=== PATIENT | female | born 1990 | race Caucasian/White ===

== ENCOUNTER 2018-07-13 11:29 | Emergency (ER) | payer SELFPAY ==
--- OUTSIDE RECORDS SUMMARY | 2018-07-13 11:31 | XMS REPORT | Summary of Care ---
:1990 Author Organization [facility] Address [id number] [place] [phone]- Encounter HQ Arleen_blanca(FIN) [id number] Date(s): 05/10/16 - 05/10/16 [facility] [id number] [place] [address] [phone] Discharge Diagnosis: Abdominal pain Discharge Disposition: Home or Self Care Attending Physician: Ayah Shepard DO Vital Signs Most recent to oldest [Reference Range]: 1 2 Height 162.56 cm (05/10/16 11:26 AM) Temperature Oral [96.4-99.1 DegF] 98 DegF 98.3 DegF (05/10/16 2:22 PM) (05/10/16 11:26 AM) Blood Pressure [90-140/60-90 mmHg] 125/62 mmHg 139/78 mmHg (05/10/16 2:22 PM) (05/10/16 11:26 AM) Respiratory Rate [14-20 BRMIN] 18 BRMIN 18 BRMIN (05/10/16 2:22 PM) (05/10/16 11:26 AM) Peripheral Pulse Rate [60-100 bpm] 76 bpm 88 bpm (05/10/16 2:22 PM) (05/10/16 11:26 AM) Weight 113.636 kg (05/10/16 11:26 AM) Body Mass Index 43 m2 (05/10/16 11:26 AM) Problem List Condition Effective Dates Status Health Status Informant Abdominal pain1 01/19/14 Active Acute sinusitis2, 3 01/09/11 Resolved Hip pain4 01/19/14 Active Hypothyroidism5 12/18/10 Active Influenza6, 7 10/27/07 Resolved Pharyngitis8, 9 12/15/10 Resolved 1Data migrated from [employer] on 01/28/15.2Data migrated from [employer] on 03/18/15.3Data migrated from [employer] on 03/17/15.4Data migrated from [employer] on 01/28/15.5Data migrated from [employer] on 01/28/15.6Data migrated from [employer] on 03/18/15.7Data migrated from [employer] on 03/17.8Data migrated from [employer] on 03/18/15.9Data migrated from [employer] on 03/17/15. Allergies, Adverse Reactions, Alerts Substance Reaction Severity Status NKDA1 Active 1Data migrated from [employer] on 10/24/15. Originally documented as NKA. Medications ondansetron 4 mg, 2 mL, Route: IVP, Drug form: INJ, ONCE, Dosing Weight 113.636, kg, Priority: STAT, Start date:05/10/16 12:12:00 CDT, Stop date: 05/10/16 12:12:00 CDT Notes: (Same as: Radha) MEDICATION WASTE Product Size: 4 mgProduct Wasted: ___ mg Start Date: 05/10/16 Stop Date: 05/10/16 Status: CompletedSaline Flush 0.9% 10 mL, Route: IVP, Drug Form: INJ, Dosing Weight 113.636, kg, PRN, PRN Line Flush, Start date: 05/10/16 12:12:00 CDT, Duration: 30 day, Stop date: 06/09/16 12:11:00 CDT Notes: (Same as: BD Posiflush) Start Date: 05/10/16 Stop Date: 05/10/16 Status: DiscontinuedSodium Chloride 0.9% (Bolus) IV 1,000 mL, 2,000 ml/hr, Infuse Over: 30 minutes, Route: IV, 1,000, Drug form: INJ , ONCE, Priority: STAT, Dosing Weight 113.636 kg, Start date: 05/10/16 12:12:00 CDT, Duration: 1 doses or times, Stop date: 05/10/16 12:12:00 CDT Start Date: 05/10/16 Stop Date: 05/10/16 Status: CompletedZofran 4 mg oral tablet 4 mg=1 tab, PO, BID, X 5 day, # 10 tab, 0 Refill(s) Start Date: 05/10/16 Stop Date: 05/15/16 Status: Ordered Results ELECTROLYTES Most recent to oldest [Reference Range]: 1 Sodium Lvl [135-145 mEq/L] 143 mEq/L (05/10/16 12:37 PM) Potassium Lvl [3.5-5.1 mEq/L] 3.9 mEq/L (05/10/16 12:37 PM) Chloride Lvl [95-109 mEq/L] 111 mEq/L *HI* (05/10/16 12:37 PM) CO2 [24-32 mEq/L] 25 mEq/L (05/10/16 12:37 PM) AGAP [10.0-20.0 mEq/L] 10.9 mEq/L (05/10/16 12:37 PM) CHEM PANEL Most recent to oldest [Reference Range]: 1 Creatinine Lvl [0.50-1.40 mg/dL] 0.72 mg/dL (05/10/16 12:37 PM) eGFR 117 mL/min/1.73m2 1 *NA* (05/10/16 12:37 PM) BUN [7-22 mg/dL] 10 mg/dL (05/10/16 12:37 PM) Glucose Lvl [70-99 mg/dL] 103 mg/dL *HI* (05/10/16 12:37 PM) Calcium Lvl [8.5-10.5 mg/dL] 8.4 mg/dL *LOW* (05/10/16 12:37 PM) 1Result Comment: The eGFR is calculated using the CKD-EPI formula. In most young , healthy individualsthe eGFR will be >90 mL/min/1.73m2. The eGFR declines with age. An eGFR of 60-89 may be normal in some populations, particularly the elderly, for whom the CKD-EPI formula has not been extensively validated. Use of the eGFR is not recommended in the following populations: Individuals with unstable creatinine concentrations, including patients and those with serious co-morbid conditions. Patients with extremes in muscle mass or diet. The data above are obtained from the National Kidney Disease Education Program ( NKDEP) which additionally recommends that when the eGFR is used in patients with extremes of body mass index for purposesof drug dosing, the eGFR should be multiplied by the estimated BMI.URINE CHEM Most recent to oldest [Reference Range]: 1 U Preg [Negative] Negative (05/10/16 11:46 AM) URINE AND STOOL Most recent to oldest [Reference Range]: 1 UA Turbidity [Clear] Slight Cloudy (05/10/16 11:46 AM) UA Color [Yellow] Yellow *NA* (05/10/16 11:46 AM) UA pH [5.0-8.0] 6.0 (05/10/16 11:46 AM) UA Spec Grav [<=1.030] 1.025 (05/10/16 11:46 AM) UA Glucose [Negative] Negative (05/10/16 11:46 AM) UA Blood [Negative] Negative (05/10/16 11:46 AM) UA Ketones [Negative] Negative *NA* (05/10/16 11:46 AM) UA Protein [Negative] Negative (05/10/16 11:46 AM) UA Urobilinogen [0.1-1.0 EU/dL] 0.2 EU/dL (05/10/16 11:46 AM) UA Bili [Negative] Negative *NA* (05/10/16 11:46 AM) UA Leuk Est [Negative] Moderate *ABN* (05/10/16 11:46 AM) UA Nitrite [Negative] Negative (05/10/16 11:46 AM) UA WBC [None Seen /HPF] 3-5 /HPF (05/10/16 11:46 AM) UA RBC [0-2 /HPF] 0-2 /HPF (05/10/16 11:46 AM) UA Bacteria [None Seen /HPF] Many /HPF (05/10/16 11:46 AM) UA Sq Epi [Few /LPF] Moderate /LPF *ABN* (05/10/16 11:46 AM) HEMATOLOGY Most recent to oldest [Reference Range]: 1 WBC [3.7-10.4 K/CMM] 8.7 K/CMM (05/10/16 12:37 PM) RBC [4.20-5.40 M/CMM] 4.64 M/CMM (05/10/16 12:37 PM) Hgb [12.0-16.0 g/dL] 13.1 g/dL (05/10/16 12:37 PM) Hct [36.0-48.0 %] 39.4 % (05/10/16 12:37 PM) MCV [80.0-98.0 fL] 84.9 fL (05/10/16 12:37 PM) MCH [27.0-31.0 pg] 28.2 pg (05/10/16 12:37 PM) MCHC [32.0-36.0 g/dL] 33.2 g/dL (05/10/16 12:37 PM) RDW [11.5-14.5 %] 14.9 % *HI* (05/10/16 12:37 PM) Platelet [133-450 K/CMM] 230 K/CMM (05/10/16 12:37 PM) MPV [7.4-10.4 fL] 8.8 fL (05/10/16 12:37 PM) Segs [45.0-75.0 %] 62.8 % (05/10/16 12:37 PM) Lymphocytes [20.0-40.0 %] 24.6 % (05/10/16 12:37 PM) Monocytes [2.0-12.0 %] 7.9 % (05/10/16 12:37 PM) Eosinophils [0.0-4.0 %] 4.4 % *HI* (05/10/16 12:37 PM) Basophils [0.0-1.0 %] 0.3 % (05/10/16 12:37 PM) Segs-Bands # [1.5-8.1 K/CMM] 5.5 K/CMM (05/10/16 12:37 PM) Lymphocytes # [1.0-5.5 K/CMM] 2.1 K/CMM (05/10/16 12:37 PM) Monocytes # [0.0-0.8 K/CMM] 0.7 K/CMM (05/10/16 12:37 PM) Eosinophils # [0.0-0.5 K/CMM] 0.4 K/CMM (05/10/16 12:37 PM) Immunizations No data available for this section Procedures No data available for this section Social History Social History Type Response Smoking Status Never smoker; Exposure to Tobacco Smoke None; Cigarette Smoking Last 365 Days No; Reg Smoking Cessation Counseling No Assessment and Plan No data available for this section
--- OUTSIDE RECORDS SUMMARY | 2018-07-13 11:31 | XMS REPORT | Continuity of Care Document ---
:1990 Author Organization Interface Problems Problem Status Onset Classification Date Comments Source Date Reported PAIN ON RT HIP Active 05/18/20 [facility] 16 Jacky Discharge 05/10/20 05/13/2016 Diagnosis: 16 [place] Abdominal pain ABDOMINAL PAIN Active 05/10/20 [place] [id number] Jacky Abdominal Active 01/20/20 Problem 05/21/2016 Data pain<sup>1</sup> 14 migrated Wesley from [employer] on 01/28/15. Hip Active 01/20/20 Problem 05/21/2016 Data pain<sup>4</sup> 14 migrated [place] from [employer] on 01/28/15. Acute Resolved 01/10/20 Problem 05/21/2016 Data sinusitis<sup>2, 11 migrated Wesley 3</sup> from [employer] on 03/17/15. Hypothyroidism<roland Active 12/19/19 Problem 05/21/2016 Data p>5</sup> 11 migrated Wesley from [employer] on 01/28/15. Pharyngitis<sup>8 Resolved 08/15/20 Problem 05/21/2016 Data , 9</sup> 10 migrated Wesley from [employer] on 03/17/15. Influenza<sup>6, Resolved 10/27/19 Problem 05/21/2016 Data 7</sup> 08 migrated Wesley from [employer] on 03/17/15. Hypothyroidism Resolved Problem 05/21/2016 [facility] Medications Medication Details Route Status Patient Ordering Order Source Instructions Provider Date Ondansetron 4 4 mg=1 tab, Active MH MG Oral Tablet PO, BID, X 5 016 Arnaldo [Radha] , # 10 tab, 0 Refill(s) Ondansetron 4 mg, 2 mL, Inactive Route: IVP, 016 Arnaldo Drug form: INJ, ONCE, Dosing Weight 113.636, kg, Priority: STAT, Start date: 05/10/16 12:12:00 CDT, Stop date: 05/10/16 12:12:00 CDTNotes: (Same as: Zofran) MEDICATION WASTE Product Size: 4 mg Product Wasted: ___ mg Saline Flush 10 mL, Route: Inactive 0.9% IVP, Drug 016 Wesley Form: INJ, Dosing Weight 113.636, kg, PRN, PRN Line Flush, Start date: 05/10/16 12:12:00 CDT, Duration: 30 day, Stop date: 06/09/16 12:11:00 CDTNotes: (Same as: BD Posiflush) Sodium 1,000 mL, Inactive Chloride 0.154 2,000 ml/hr, 016 Wesley MEQ/ML Infuse Over: Injectable 30 minutes, Solution Route: IV, 1,000, Drug form: INJ, ONCE, Priority: STAT, Dosing Weight 113.636 kg, Start date: 05/10/16 12:12:00 CDT, Duration: 1 doses or times, Stop date: 05/10/16 12:12:00 CDT Allergies, Adverse Reactions, Alerts Substance Category Reaction Severity Reaction Status Date Comments Source type Reported Immunizations Immunization Date Given Site Status Last Updated Comments Source Results Order Name Results Value Reference Date Interpretation Comments Source Range URINE AND UA RBC 3-5 /HPF 0 - 2 05/19 [place] URINE AND UA CaOx Radha Few /HPF None Seen 05/19 STOOL /HPF Wesley URINE AND UA Bacteria Moderate None Seen 05/19 STOOL /HPF /HPF /2015 [place] URINE AND UA Turbidity Slight Cloudy Clear 05/19 Wesley (05/18/16 10:39 PM) URINE AND UA Spec Grav >=1.030 <=1.030 05/19 [place] *ABN* (05/18/16 10:39 PM) URINE AND UA pH 6.0 5.0 - 8.0 05/19 [place] URINE AND UA Color Yellow Yellow 05/19 [place] *NA* (05/18/16 10:39 PM) URINE AND UA Bili Negative Negative 05/19 [place] *NA* (05/18/16 10:39 PM) URINE AND UA Blood Trace Negative 05/19 STOOL [place] *ABN* (05/18/16 10:39 PM) URINE AND UA Ketones Negative Negative 05/19 STOOL [place] *NA* (05/18/16 10:39 PM) URINE AND UA Leuk Est Negative Negative 05/19 STOOL [place] (05/18/16 10:39 PM) URINE AND UA Sq Epi Few /LPF Few /LPF 05/19 STOOL [place] URINE AND UA WBC 3-5 /HPF None Seen 05/19 STOOL /HPF /2015 [place] URINE AND UA Protein Negative Negative 05/19 STOOL Wesley (05/18/16 10:39 PM) URINE AND UA Glucose Negative Negative 05/19 STOOL [place] (05/18/16 10:39 PM) URINE AND UA Nitrite Negative Negative 05/19 STOOL [place] (05/18/16 10:39 PM) URINE AND UA 0.2 EU/dL 0.1 - 1.0 05/19 [facility] Urobilinogen Wesley URINE CHEM U Preg Negative Negative 05/19 [place] (05/18/16 10:39 PM) ELECTROLYTE AGAP 10.9 10.0 - 05/10 S meq/L 20.0 /2015 [place] ELECTROLYTE eGFR 117 05/10 Result Comment: The eGFR is calculated using the CKD-EPI formula. In most young, healthy individuals the eGFR will be > 90 mL/min/1.73m2. The eGFR declines with age. An eGFR of 60-89 may be normal in S mL/min/1. some populations, particularly the elderly, for whom the CKD-EPI formula has not been extensively validated. Use of the eGFR is not recommended in the following populations: Wesley 73m2 Individuals with unstable creatinine concentrations, including patients and those with serious co-morbid conditions. Patients with extremes in muscle mass or diet. The data above are obtained from the National Kidney Disease Education Program (NKDEP) which additionally recommends that when the eGFR is used in patients with extremes of body mass index for purposes of drug dosing, the eGFR should be multiplied by the estimated BMI. ELECTROLYTE CO2 25 meq/L 24 - 32 05/10 S /2015 [place] ELECTROLYTE Calcium Lvl 8.4 mg/dL 8.5 - 10.5 09 S [place] ELECTROLYTE BUN 10 mg/dL 7 - 22 05/10 S [place] ELECTROLYTE Creatinine 0.72 0.50 - 09 S Lvl mg/dL 1. [place] ELECTROLYTE Sodium Lvl 143 meq/L 135 - 145 05/10 [place] ELECTROLYTE Glucose Lvl 103 mg/dL 70 - 99 05/10 [place] ELECTROLYTE Chloride Lvl 111 meq/L 95 - 109 05/10 [place] ELECTROLYTE Potassium Lvl 3.9 meq/L 3.5 - 5.1 05/10 S [place] HEMATOLOGY MCH 28.2 pg 27.0 - 05/10 MH 31.0 [place] HEMATOLOGY MCV 84.9 fL 80.0 - 05/10 98.0 [place] HEMATOLOGY Hct 39.4 % 36.0 - 05/10 48.0 [place] HEMATOLOGY MCHC 33.2 g/dL 32.0 - 05/10 36.0 [place] HEMATOLOGY MPV 8.8 fL 7.4 - 10.4 05/10 [place] HEMATOLOGY Platelet 230 K/CMM 133 - 450 05/10 [place] HEMATOLOGY RDW 14.9 % 11.5 - 05/10 14. [place] HEMATOLOGY WBC X 10x3 8.7 K/CMM 3.7 - 10.4 05/10 [place] HEMATOLOGY Hgb 13.1 g/dL 12.0 - 05/10 16.0 [place] HEMATOLOGY RBC X 10x6 4.64 4.20 - 05/10 MH M/CMM 5.40 [place] HEMATOLOGY Lymphocytes # 2.1 K/CMM 1.0 - 5.5 05/10 [place] HEMATOLOGY Segs-Bands # 5.5 K/CMM 1.5 - 8.1 05/10 [place] HEMATOLOGY Monocytes # 0.7 K/CMM 0.0 - 0.8 05/10 [place] HEMATOLOGY Basophils 0.3 % 0.0 - 1.0 05/10 [place] HEMATOLOGY Eosinophils # 0.4 K/CMM 0.0 - 0.5 05/10 [place] HEMATOLOGY Eosinophils 4.4 % 0.0 - 4.0 05/10 [place] HEMATOLOGY Monocytes 7.9 % 2.0 - 12.0 05/10 [place] HEMATOLOGY Lymphocytes 24.6 % 20.0 - 05/10 MH 40.0 [place] HEMATOLOGY Segs 62.8 % 45.0 - 05/10 75.0 [place] URINE AND UA Glucose Negative Negative 05/10 [place] (05/10/16 11:46 AM) URINE AND UA Nitrite Negative Negative 05/10 [place] (05/10/16 11:46 AM) URINE AND UA Blood Negative Negative 05/10 STOOL [place] (05/10/16 11:46 AM) URINE AND UA Bili Negative Negative 05/10 [place] *NA* (05/10/16 11:46 AM) URINE AND UA Ketones Negative Negative 05/10 [place] *NA* (05/10/16 11:46 AM) URINE AND UA Protein Negative Negative 05/10 [place] (05/10/16 11:46 AM) URINE AND UA pH 6.0 5.0 - 8.0 05/10 [place] URINE AND UA 0.2 EU/dL 0.1 - 1.0 05/10 STOOL Urobilinogen /2015 [place] URINE AND UA Leuk Est Moderate Negative 05/10 [place] *ABN* (05/10/16 11:46 AM) URINE AND UA Color Yellow Yellow 05/10 [place] *NA* (05/10/16 11:46 AM) URINE AND UA Spec Grav 1.025 <=1.030 05/10 [place] URINE AND UA Turbidity Slight Cloudy Clear 05/10 STOOL [place] (05/10/16 11:46 AM) URINE AND UA Bacteria Many /HPF None Seen 05/10 STOOL /HPF Wesley URINE AND UA WBC 3-5 /HPF None Seen 05/10 STOOL /HPF [place] URINE AND UA RBC 0-2 /HPF 0 - 2 05/10 [place] URINE AND UA Sq Epi Moderate Few /LPF 05/10 STOOL /LPF /2015 [place] URINE CHEM U Preg Negative Negative 05/10 [place] (05/10/16 11:46 AM) Vital Signs Vital Sign Value Date Comments Source BMI Calculated 43 05/19/2016 [facility] Weight 113.636 05/19/2016 [facility] Height 162.56 cm 05/19/2016 [facility] Systolic (mm Hg) 133 05/19/2016 [facility] Diastolic (mm Hg) 73 05/19/2016 [facility] Heart Rate 83 05/19/2016 [facility] Respitory Rate 18 05/19/2016 [facility] Temperature Oral (F) 98.1 F 05/19/2016 [facility] Heart Rate 76 05/10/2016 [facility] Temperature Oral (F) 98 F 05/10/2016 [facility] Respitory Rate 18 05/10/2016 [facility] Systolic (mm Hg) 125 05/10/2016 [facility] Diastolic (mm Hg) 62 05/10/2016 [facility] BMI Calculated 43 05/10/2016 [facility] Weight 113.636 05/10/2016 [facility] Height 162.56 cm 05/10/2016 [facility] Systolic (mm Hg) 139 05/10/2016 [facility] Diastolic (mm Hg) 78 05/10/2016 [facility] Temperature Oral (F) 98.3 F 05/10/2016 [facility] Heart Rate 88 05/10/2016 [facility] Respitory Rate 18 05/10/2016 [facility] Encounters Location Location Encounter Encounter Reason Attending ADM DC Status Source Details Type Number For Provider Date [facility] [id number] Ayah 05/10 05/10 [facility]ip[facility] /2015 [facility] [id number] Ayah 05/19 05/19 [facility] /2015 [facility] Procedures Procedure Code Date Perfomer Comments Source section [id number] [facility]
--- OUTSIDE RECORDS SUMMARY | 2018-07-13 11:32 | XMS REPORT | Summary of Care ---
:1990 Author Organization [facility] Address [id number] [place] [id number]- Encounter HQ Lou(FIN) [id number] Date(s): 05/18/16 - 05/18/16 [facility] [address] [place] [phone] Discharge Disposition: Home or Self Care Attending Physician: Ayah Shepard DO Vital Signs Most recent to oldest [Reference Range]: 1 Height 162.56 cm (05/18/16 9:49 PM) Temperature Oral [96.4-99.1 DegF] 98.1 DegF (05/18/16 9:49 PM) Blood Pressure [90-140/60-90 mmHg] 133/73 mmHg (05/18/16 9:49 PM) Respiratory Rate [14-20 BRMIN] 18 BRMIN (05/18/16 9:49 PM) Peripheral Pulse Rate [60-100 bpm] 83 bpm (05/18/16 9:49 PM) Weight 113.636 kg (05/18/16 9:49 PM) Body Mass Index 43 m2 (05/18/16 9:49 PM) Problem List Condition Effective Dates Status Health Status Informant Abdominal pain1 01/19/14 Active Acute sinusitis2, 3 01/09/11 Resolved Hip pain4 01/19/14 Active Hypothyroidism5 12/18/10 Active Hypothyroidism(Confirmed) Resolved Influenza6, 7 10/27/07 Resolved Pharyngitis8, 9 08/15/10 Resolved 1Data migrated from [employer] on [...] on 10/24/15. Originally documented as NKA. Medications No data available for this section Results URINE CHEM Most recent to oldest [Reference Range]: 1 U Preg [Negative] Negative (05/18/16 10:39 PM) URINE AND STOOL Most recent to oldest [Reference Range]: 1 UA Turbidity [Clear] Slight Cloudy (05/18/16 10:39 PM) UA Color [Yellow] Yellow *NA* (05/18/16 10:39 PM) UA pH [5.0-8.0] 6.0 (05/18/16 10:39 PM) UA Spec Grav [<=1.030] >=1.030 *ABN* (05/18/16 10:39 PM) UA Glucose [Negative] Negative (05/18/16 10:39 PM) UA Blood [Negative] Trace *ABN* (05/18/16 10:39 PM) UA Ketones [Negative] Negative *NA* (05/18/16 10:39 PM) UA Protein [Negative] Negative (05/18/16 10:39 PM) UA Urobilinogen [0.1-1.0 EU/dL] 0.2 EU/dL (05/18/16 10:39 PM) UA Bili [Negative] Negative *NA* (05/18/16 10:39 PM) UA Leuk Est [Negative] Negative (05/18/16 10:39 PM) UA Nitrite [Negative] Negative (05/18/16 10:39 PM) UA WBC [None Seen /HPF] 3-5 /HPF (05/18/16 10:39 PM) UA RBC [0-2 /HPF] 3-5 /HPF *ABN* (05/18/16 10:39 PM) UA Bacteria [None Seen /HPF] Moderate /HPF (05/18/16 10:39 PM) UA Sq Epi [Few /LPF] Few /LPF (05/18/16 10:39 PM) UA CaOx Radha [None Seen /HPF] Few /HPF (05/18/16 10:39 PM) Immunizations No data available for this section Procedures Procedure Date Related Diagnosis Body Site section Social History Social History Type Response Smoking Status Never smoker; Exposure to Tobacco Smoke None; Cigarette Smoking Last 365 Days No; Reg Smoking Cessation Counseling No Assessment and Plan No data available for this section
[2018-07-13] MEDS ORDERED: ALBUTEROL 2.5 MG/3 ML NEB SOL ONE (11:55)
[2018-07-13] MEDS ORDERED: IPRATROPIUM BROM 0.5MG/2.5ML ONE (11:55)
--- NOTE | 2018-07-13 13:12 | RAD REPORT ---
EXAM DESCRIPTION: RAD - Chest Pa And Lat (2 Views) - 07/13/2018 12:54 pm CLINICAL HISTORY: Cough and congestion COMPARISON: None. TECHNIQUE: PA and lateral views of the chest were obtained. FINDINGS: The lungs are clear of a peripheral consolidation or mass. Perihilar markings are mildly p rominent. Baseline for the patient is unknown. Heart size is normal and central vasculature is with in normal limits. No pleural effusion or pneumothorax seen. No acute bony finding noted. No aortic abnormality. IMPRESSION: Suspected mild viral infiltrate pattern. No focal consolidation to suspect bacterial pne umonia.
--- NOTE | 2018-07-13 13:16 | ER ---
Nurse's Notes [facility] Name: Aracelis Pike Age: 27 yrs Sex: Female : 1990 Arrival Date: 07/13/2018 Time: 11:32 Bed 15 Private MD: None, None Diagnosis: Bronchitis, not specified as acute or chronic Presentation: 07/13 11:34 Presenting complaint: Patient states: nasal discharge, sore throat, angie ears draining sv yellow, chills x 2 weeks. Reports being exposed to bronchitis. Transition of care: patient was not received from another setting of care. Onset of symptoms was June 2018. Care prior to arrival: None. 11:34 Method Of Arrival: Ambulatory sv 11:34 Acuity: VIDAL 4 sv 12:15 Initial Sepsis Screen: Does the patient meet any 2 criteria? No. Patient's initial sg sepsis screen is negative. Does the patient have a suspected source of infection? No. Patient's initial sepsis screen is negative. 12:15 Risk Assessment: Do you want to hurt yourself or someone else? Patient reports no sg desire to harm self or others. Historical: - Allergies: 11:56 Phenergan; sg - Home Meds: 11:56 None [Active]; sg - PMHx: 11:56 None; sg - PSHx: 11:56 ; sg - Immunization history:: Adult Immunizations up to date. - Social history:: Smoking status: Patient uses tobacco products, denies chronic smoking, but will smoke occasionally. - Ebola Screening: : Patient negative for fever greater than or equal to 101.5 degrees Fahrenheit, and additional compatible Ebola Virus Disease symptoms Patient denies exposure to infectious person Patient denies travel to an Ebola-affected area in the 21 days before illness onset No symptoms or risks identified at this time. Screenin:58 Abuse screen: Denies threats or abuse. Denies injuries from another. Nutritional sg screening: No deficits noted. Tuberculosis screening: No symptoms or risk factors identified. Never had TB. Fall Risk None identified. Assessment: 11:56 General: Appears in no apparent distress. comfortable, well groomed, well developed, sg well nourished, Behavior is calm, cooperative, appropriate for age. Pain: Complains of pain in sore throat, pain with cough. Neuro: No deficits noted. Cardiovascular: Patient's skin is warm and dry. Chest pain is denied. Respiratory: Airway is patent Respiratory effort is even, unlabored, Respiratory pattern is regular, symmetrical. GI: No signs and/or symptoms were reported involving the gastrointestinal system. : No signs and/or symptoms were reported regarding the genitourinary system. EENT: Nares are clear bilaterally Oral mucosa is moist. Throat is clear. Derm: Skin is pink, warm \T\ dry. Musculoskeletal: No deficits noted. Vital Signs: 11:58 BP 136 / 77; Pulse 92; Resp 17; Temp 97.7; Pulse Ox 100% on R/A; Pain 2/10; sg 13:00 BP 132 / 70; Pulse 89; Resp 17; Temp 97.7; Pulse Ox 100% on R/A; Pain 0/10; sg ED Course: 11:32 Patient arrived in ED. dl4 11:32 None, None is Private Physician. dl4 11:40 Triage completed. sv 11:40 [facility] kb 11:41 Juan Alberto Anna MD is Attending Physician. kb 11:45 Micheal Sevilla, CHRISTIN is Primary Nurse. sg 11:55 Patient has correct armband on for positive identification. sg 11:55 Flu and/or RSV swab sent to lab. Strep swab sent to lab. sg 12:00 Arm band placed on. sg 12:20 Radiology exam delayed due to patient receiving breathing treatment at this time. mh1 12:53 X-ray completed. Patient tolerated procedure well. Patient moved back from radiology. mh1 12:55 Chest Pa And Lat (2 Views) XRAY In Process Unspecified. EDMS 13:20 No provider procedures requiring assistance completed. Patient did not have IV access sg during this emergency room visit. Administered Medications: 11:58 Drug: DuoNeb (3:1) (2.5 mg - 0.5 mg) 3 ml Route: Nebulizer; sg 13:26 Follow up: Response: No adverse reaction sg 13:20 Drug: predniSONE 40 mg Route: PO; sg Outcome: 13:15 Discharge ordered by . kb 13:20 Discharged to home ambulatory. sg 13:20 Condition: good 13:20 Discharge instructions given to patient, Instructed on discharge instructions, follow up and referral plans. medication usage, safety practices, Demonstrated understanding of instructions, follow-up care, medications, Prescriptions given X 1. 13:26 Patient left the ED. sg Signatures: Dispatcher [employer] EDQuin Lopez, TIARRA VILLALOBOS-Beverly Sharma RN RN sv Gay, Steven, RN RN Virgen Berrios mh Rey Adamson dl4
--- NOTE | 2018-07-13 13:16 | EDPHYS ---
Physician Documentation [facility] Name: Aracelis Pike Age: 27 yrs Sex: Female : 1990 Arrival Date: 07/13/2018 Time: 11:32 Bed 15 Private MD: None, None ED Physician Juan Alberto Anna HPI: 07/13 12:05 This 27 yrs old Female presents to ER via Ambulatory with complaints of kb Cough, Chest Congestion. 12:05 The patient or guardian reports cough, that is intermittent, described as moderate, kb with productive sputum, flu symptoms, myalgias. Onset: The symptoms/episode began/occurred 2 week(s) ago. Severity of symptoms: At their worst the symptoms were moderate, in the emergency department the symptoms are unchanged. Modifying factors: The symptoms are alleviated by nothing, the symptoms are aggravated by nothing. Associated signs and symptoms: Pertinent positives: earache, rhinorrhea, sore throat, Pertinent negatives: chest pain, diarrhea, fever, nausea, vomiting. The patient has not experienced similar symptoms in the past. The patient has not recently seen a physician. Historical: - Allergies: 11:56 Phenergan; sg - Home Meds: 11:56 None [Active]; sg - PMHx: 11:56 None; sg - PSHx: 11:56 ; sg - Immunization history:: Adult Immunizations up to date. - Social history:: Smoking status: Patient uses tobacco products, denies chronic smoking, but will smoke occasionally. - Ebola Screening: : Patient negative for fever greater than or equal to 101.5 degrees Fahrenheit, and additional compatible Ebola Virus Disease symptoms Patient denies exposure to infectious person Patient denies travel to an Ebola-affected area in the 21 days before illness onset No symptoms or risks identified at this time. ROS: 11:46 Cardiovascular: Negative for chest pain, palpitations, and edema, Abdomen/GI: Negative kb for abdominal pain, nausea, vomiting, diarrhea, and constipation, Back: Negative for injury and pain, : Negative for injury, bleeding, discharge, and swelling, MS/Extremity: Negative for injury and deformity, Skin: Negative for injury, rash, and discoloration, Neuro: Negative for headache, weakness, numbness, tingling, and seizure. 11:46 Constitutional: Positive for chills, malaise, Negative for body aches, fatigue, fever, poor PO intake, weight loss. 11:46 ENT: Positive for drainage from ear(s), rhinorrhea, sinus congestion, sore throat. 11:46 Respiratory: Positive for cough, Negative for dyspnea on exertion, hemoptysis, orthopnea, pleurisy, shortness of breath, sputum production, wheezing. Exam: 12:03 Constitutional: This is a well developed, well nourished patient who is awake, alert, kb and in no acute distress. Head/Face: Normocephalic, atraumatic. Neck: Trachea midline, no thyromegaly or masses palpated, and no cervical lymphadenopathy. Supple, full range of motion without nuchal rigidity, or vertebral point tenderness. No Meningismus. Chest/axilla: Normal chest wall appearance and motion. Nontender with no deformity. No lesions are appreciated. Cardiovascular: Regular rate and rhythm with a normal S1 and S2. No gallops, murmurs, or rubs. Normal PMI, no JVD. No pulse deficits. Abdomen/GI: Soft, non-tender, with normal bowel sounds. No distension or tympany. No guarding or rebound. No evidence of tenderness throughout. Back: No spinal tenderness. No costovertebral tenderness. Full range of motion. Skin: Warm, dry with normal turgor. Normal color with no rashes, no lesions, and no evidence of cellulitis. MS/ Extremity: Pulses equal, no cyanosis. Neurovascular intact. Full, normal range of motion. Neuro: Awake and alert, GCS 15, oriented to person, place, time, and situation. Cranial nerves II-XII grossly intact. Motor strength 5/5 in all extremities. Sensory grossly intact. Cerebellar exam normal. Normal gait. 12:03 ENT: TM's: fluid levels, bilaterally. 12:03 Respiratory: the patient does not display signs of respiratory distress, Respirations: normal, Breath sounds: rhonchi, that are moderate, are heard in the right lower lobe and right posterior lower lobe. Vital Signs: 11:58 BP 136 / 77; Pulse 92; Resp 17; Temp 97.7; Pulse Ox 100% on R/A; Pain 2/10; sg 13:00 BP 132 / 70; Pulse 89; Resp 17; Temp 97.7; Pulse Ox 100% on R/A; Pain 0/10; sg MDM: 11:41 Patient medically screened. kb 11:46 Data reviewed: vital signs, nurses notes. Data interpreted: Pulse oximetry: on room air kb is 99 %. Interpretation: normal. 13:15 Counseling: I had a detailed discussion with the patient and/or guardian regarding: the kb historical points, exam findings, and any diagnostic results supporting the discharge/admit diagnosis, lab results, radiology results, the need for outpatient follow up, a family practitioner, to return to the emergency department if symptoms worsen or persist or if there are any questions or concerns that arise at home. 07/13 11:46 Order name: Flu; Complete Time: 13:09 kb 07/13 11:46 Order name: Strep; Complete Time: 13:09 kb 07/13 11:46 Order name: Chest Pa And Lat (2 Views) XRAY; Complete Time: 13:14 kb 07/13 13:10 Order name: Throat Culture EDMS Administered Medications: 11:58 Drug: DuoNeb (3:1) (2.5 mg - 0.5 mg) 3 ml Route: Nebulizer; sg 13:26 Follow up: Response: No adverse reaction sg 13:20 Drug: predniSONE 40 mg Route: PO; sg Disposition: 18:52 Co-signature as Attending Physician, Juan Alberto Anna MD available for consultation at ps1 all times. . Disposition: 07/13/18 13:15 Discharged to Home. Impression: Bronchitis, not specified as acute or chronic. - Condition is Stable. - Discharge Instructions: Acute Bronchitis, [id number]. - Prescriptions for Prednisone 20 mg Oral Tablet - take 1 tablet by ORAL route once daily for 5 days; 5 tablet. Albuterol Sulfate 90 mcg/actuation - inhale 1-2 puff by INHALATION route every 4-6 hours; 1 Inhaler. - Medication Reconciliation Form, Thank You Letter, Antibiotic Education, Prescription Opioid Use, Work release form form. - School release form (07/13/18 13:32). ss - Follow up: Emergency Department; When: As needed; Reason: Worsening of condition. Follow up: Private Physician; When: 2 - 3 days; Reason: Recheck today's complaints, Continuance of care, Re-evaluation by your physician. Signatures: Dispatcher MathZee EDQuin Lopez, WILFREDO-Renetta VILLALOBOS-Micheal Martinez, RN RN sg Juan Alberto Anna MD MD ps1 Yulia Bailey RN ss Corrections: (The following items were deleted from the chart) 13:26 13:15 07/13/2018 13:15 Discharged to Home. Impression: Bronchitis, not specified as sg acute or chronic. Condition is Stable. Forms are Medication Reconciliation Form, Thank You Letter, Antibiotic Education, Prescription Opioid Use. Follow up: Emergency Department; When: As needed; Reason: Worsening of condition. Follow up: Private Physician; When: 2 - 3 days; Reason: Recheck today's complaints, Continuance of care, Re-evaluation by your physician. kb
[2018-07-13] MEDS ORDERED: predniSONE 20 MG TAB ONE (13:26)
[2018-07-13 13:59] VITALS: BP 136/77; TEMP 97.7; O2SAT 100
== END 2018-07-13 13:26 | disposition home or self-care (01) ==
LOC: ER 11:29
DX: J40 Bronchitis, not specified as acute or chronic (principal)
CPT/HCPCS: 71046; 87070; 87081; 87804; 94640; 99284; J7512

== ENCOUNTER 2018-07-31 02:19 | Emergency (ER) | payer SELFPAY ==
--- OUTSIDE RECORDS SUMMARY | 2018-07-31 02:22 | XMS REPORT | Continuity of Care Document ---
:1990 Author Organization Interface Problems Problem Status Onset Classification Date Comments Source Date Reported PAIN ON RT HIP Active 05/18/20 [facility] 16 [place] Discharge 05/10/20 05/13/2016 Diagnosis: 16 [place] Abdominal pain ABDOMINAL PAIN Active 05/10/20 [place] [address] Jacky Abdominal Active 01/20/20 Problem 05/21/2016 Data pain<sup>1</sup> 14 migrated [place] from [employer] on 01/28/15. Hip Active 01/20/20 Problem 05/21/2016 Data pain<sup>4</sup> 14 migrated [place] from [employer] on 01/28/15. Acute Resolved 01/10/20 Problem 05/21/2016 Data sinusitis<sup>2, 11 migrated [place] 3</sup> from [employer] on 03/17/15. Hypothyroidism<roland Active 12/19/19 Problem 05/21/2016 Data p>5</sup> 11 migrated [place] from [employer] on 01/28/15. Pharyngitis<sup>8 Resolved 08/15/20 Problem 05/21/2016 Data , 9</sup> 10 migrated [place] from [employer] on 03/17/15. Influenza<sup>6, Resolved 10/27/19 Problem 05/21/2016 Data 7</sup> 08 migrated [place] from [employer] on 03/17/15. Hypothyroidism Resolved Problem 05/21/2016 [facility] Medications Medication Details Route Status [...] mL, Route: Inactive 0.9% IVP, Drug 016 [place] Form: INJ, Dosing Weight 113.636, kg, PRN, PRN Line Flush, Start date: 05/10/16 12:12:00 CDT, Duration: 30 day, Stop date: 06/09/16 12:11:00 CDTNotes: (Same as: BD Posiflush) Sodium 1,000 mL, Inactive Chloride 0.154 2,000 ml/hr, 016 [place] MEQ/ML Infuse Over: Injectable 30 minutes, Solution [...] RBC 3-5 /HPF 0 - 2 05/19 [place] URINE AND UA CaOx Radha Few /HPF None Seen 05/19 STOOL /HPF [place] URINE AND UA Bacteria Moderate None Seen 05/19 STOOL /HPF /HPF /2015 [place] URINE AND UA Turbidity Slight Cloudy Clear 05/19 [place] (05/18/16 10:39 PM) URINE AND UA Spec Grav >=1.030 <=1.030 05/19 [place] *ABN* (05/18/16 10:39 PM) URINE AND UA pH 6.0 5.0 - 8.0 05/19 [place] URINE AND UA Color Yellow Yellow 05/19 [place] *NA* (05/18/16 10:39 PM) URINE AND UA Bili Negative Negative 05/19 [place] *NA* (05/18/16 10:39 PM) URINE AND UA Blood Trace Negative 05/19 STOOL [place] *ABN* (05/18/16 10:39 PM) URINE AND UA Ketones Negative Negative 05/19 STOOL [place] *NA* (05/18/16 10:39 PM) URINE AND UA Leuk Est Negative Negative 05/19 STOOL [place] (05/18/16 10:39 PM) URINE AND UA Sq Epi Few /LPF Few /LPF 05/19 STOOL [place] URINE AND UA WBC 3-5 /HPF None Seen 05/19 STOOL /HPF /2015 [place] URINE AND UA Protein Negative Negative 05/19 STOOL [place] (05/18/16 10:39 PM) URINE AND UA Glucose Negative Negative 05/19 STOOL [place] (05/18/16 10:39 PM) URINE AND UA Nitrite Negative Negative 05/19 STOOL [place] (05/18/16 10:39 PM) URINE AND UA 0.2 EU/dL 0.1 - 1.0 05/19 [facility] Urobilinogen [place] URINE CHEM U Preg Negative Negative 05/19 [place] (05/18/16 10:39 PM) ELECTROLYTE AGAP 10.9 10.0 - 05/10 S meq/L 20.0 /2015 [place] ELECTROLYTE eGFR 117 05/10 Result Comment: The [...] is not recommended in the following populations: [place] 73m2 Individuals with unstable creatinine concentrations, including [...] meq/L 24 - 32 05/10 S /2015 [place] ELECTROLYTE Calcium Lvl 8.4 mg/dL 8.5 - 10.5 09 S [place] ELECTROLYTE BUN 10 mg/dL 7 - 22 05/10 S [place] ELECTROLYTE Creatinine 0.72 0.50 - 09 S Lvl mg/dL 1. [place] ELECTROLYTE Sodium Lvl 143 meq/L 135 - 145 05/10 [place] ELECTROLYTE Glucose Lvl 103 mg/dL 70 - 99 05/10 [place] ELECTROLYTE Chloride Lvl 111 meq/L 95 - 109 05/10 [place] ELECTROLYTE Potassium Lvl 3.9 meq/L 3.5 - 5.1 05/10 S [place] HEMATOLOGY MCH 28.2 pg 27.0 - 05/10 MH 31.0 [place] HEMATOLOGY MCV 84.9 fL 80.0 - 05/10 98.0 [place] HEMATOLOGY Hct 39.4 % 36.0 - 05/10 48.0 [place] HEMATOLOGY MCHC 33.2 g/dL 32.0 - 05/10 36.0 [place] HEMATOLOGY MPV 8.8 fL 7.4 - 10.4 05/10 [place] HEMATOLOGY Platelet 230 K/CMM 133 - 450 05/10 [place] HEMATOLOGY RDW 14.9 % 11.5 - 05/10 14. [place] HEMATOLOGY WBC X 10x3 8.7 K/CMM 3.7 - 10.4 05/10 [place] HEMATOLOGY Hgb 13.1 g/dL 12.0 - 05/10 16.0 [place] HEMATOLOGY RBC X 10x6 4.64 4.20 - 05/10 MH M/CMM 5.40 [place] HEMATOLOGY Lymphocytes # 2.1 K/CMM 1.0 - 5.5 05/10 [place] HEMATOLOGY Segs-Bands # 5.5 K/CMM 1.5 - 8.1 05/10 [place] HEMATOLOGY Monocytes # 0.7 K/CMM 0.0 - 0.8 05/10 [place] HEMATOLOGY Basophils 0.3 % 0.0 - 1.0 05/10 [place] HEMATOLOGY Eosinophils # 0.4 K/CMM 0.0 - 0.5 05/10 [place] HEMATOLOGY Eosinophils 4.4 % 0.0 - 4.0 05/10 [place] HEMATOLOGY Monocytes 7.9 % 2.0 - 12.0 05/10 [place] HEMATOLOGY Lymphocytes 24.6 % 20.0 - 05/10 MH 40.0 [place] HEMATOLOGY Segs 62.8 % 45.0 - 05/10 75.0 [place] URINE AND UA Glucose Negative Negative 05/10 [place] (05/10/16 11:46 AM) URINE AND UA Nitrite Negative Negative 05/10 [place] (05/10/16 11:46 AM) URINE AND UA Blood Negative Negative 05/10 STOOL [place] (05/10/16 11:46 AM) URINE AND UA Bili Negative Negative 05/10 [place] *NA* (05/10/16 11:46 AM) URINE AND UA Ketones Negative Negative 05/10 [place] *NA* (05/10/16 11:46 AM) URINE AND UA Protein Negative Negative 05/10 [place] (05/10/16 11:46 AM) URINE AND UA pH 6.0 5.0 - 8.0 05/10 [place] URINE AND UA 0.2 EU/dL 0.1 - 1.0 05/10 [place] Urobilinogen /2015 [place] URINE AND UA Leuk Est Moderate Negative 05/10 [place] *ABN* (05/10/16 11:46 AM) URINE AND UA Color Yellow Yellow 05/10 [place] *NA* (05/10/16 11:46 AM) URINE AND UA Spec Grav 1.025 <=1.030 05/10 [place] URINE AND UA Turbidity Slight Cloudy Clear 05/10 STOOL [place] (05/10/16 11:46 AM) URINE AND UA Bacteria Many /HPF None Seen 05/10 STO[facility] /HPF [place] URINE AND UA WBC 3-5 /HPF None Seen 05/10 STOOL /HPF [place] URINE AND UA RBC 0-2 /HPF 0 - 2 05/10 [place] URINE AND UA Sq Epi Moderate Few /LPF 05/10 [facility] /LPF /2015 [place] URINE CHEM U Preg Negative Negative 05/10 [place] (05/10/16 11:46 AM) Vital Signs Vital Sign Value Date Comments Source BMI Calculated 43 05/19/2016 [facility] Weight 113.636 05/19/2016 [facility] Height 162.56 cm 05/19/2016 [facility] Systolic (mm Hg) 133 05/19/2016 [facility] Diastolic (mm Hg) 73 05/19/2016 [facility] Heart Rate 83 05/19/2016 [facility] Respitory Rate 18 05/19/2016 [facility] Temperature Oral (F) 98.1 F 05/19/2016 [facility] Heart Rate 76 05/10/2016 [facility] Temperature Oral (F) 98 F 05/10/2016 [facility] Respitory Rate 18 05/10/2016 [facility] Systolic (mm Hg) 125 05/10/2016 [facility] Diastolic (mm Hg) 62 05/10/2016 [facility] BMI Calculated 43 05/10/2016 [facility] Weight 113.636 05/10/2016 [facility] Height 162.56 cm 05/10/2016 [facility] Systolic (mm Hg) 139 05/10/2016 [facility] Diastolic (mm Hg) 78 05/10/2016 [facility] Temperature Oral (F) 98.3 F 05/10/2016 [facility] Heart Rate 88 05/10/2016 [facility] Respitory Rate 18 05/10/2016 [facility] Encounters Location Location Encounter Encounter Reason Attending ADM DC Status Source Details Type Number For Provider Date Date [facility] [id number] Ayah 05[facility]10 05/10 [facility] /2015 [facility] Emergency [id number] Ayah 05/19 05/19 [facility] /2015 [facility] Procedures Procedure Code Date Perfomer Comments Source section [id number] [facility]
--- NOTE | 2018-07-31 02:37 | EDPHYS ---
Physician Documentation [facility] Name: Aracelis Pike Age: 28 yrs Sex: Female : 1990 Arrival Date: 07/31/2018 Time: 02:24 Bed 8 Private MD: ED Physician Torito Ramos HPI: 07/31 02:40 This 28 yrs old Female presents to ER via Ambulatory with complaints of snw Cough, Runny Nose. 02:40 The patient or guardian reports cough, that is constant, x 2 months. Onset: The snw symptoms/episode began/occurred gradually, 2 month(s) ago, and became worse. Severity of symptoms: At their worst the symptoms were moderate, severe. Associated signs and symptoms: Pertinent positives: earache, fever, rhinorrhea, vomiting, nosebleed. The patient has experienced similar episodes in the past. The patient has been recently seen at the [facility] Emergency Department, a couple of weeks ago. 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 - Social history:: Smoking status: Patient/guardian denies using tobacco. - Ebola Screening: : No symptoms or risks identified at this time. ROS: 02:39 Eyes: Negative for injury, pain, redness, and discharge. snw 02:39 Neck: Negative for injury, pain, and swelling, Cardiovascular: Negative for chest pain, palpitations, and edema. 02:39 Back: Negative for injury and pain, : Negative for injury, bleeding, discharge, and swelling, MS/Extremity: Negative for injury and deformity, Skin: Negative for injury, rash, and discoloration, Neuro: Negative for headache, weakness, numbness, tingling, and seizure. 02:39 Constitutional: Positive for body aches, fatigue, malaise, poor PO intake. 02:39 ENT: Positive for ear pain, nasal discharge, nose bleed, sinus congestion. 02:39 Respiratory: Positive for cough. 02:39 Abdomen/GI: Positive for vomiting. Exam: 02:38 Head/Face: Normocephalic, atraumatic. Eyes: Pupils equal round and reactive to light, snw extra-ocular motions intact. Lids and lashes normal. Conjunctiva and sclera are non-icteric and not injected. Cornea within normal limits. Periorbital areas with no swelling, redness, or edema. 02:38 Neck: Trachea midline, no thyromegaly or masses palpated, and no cervical lymphadenopathy. Supple, full range of motion without nuchal rigidity, or vertebral point tenderness. No Meningismus. Chest/axilla: Normal chest wall appearance and motion. Nontender with no deformity. No lesions are appreciated. 02:38 Abdomen/GI: Soft, non-tender, with normal bowel sounds. No distension or tympany. No guarding or rebound. No evidence of tenderness throughout. Back: No spinal tenderness. No costovertebral tenderness. Full range of motion. Skin: Warm, dry with normal turgor. Normal color with no rashes, no lesions, and no evidence of cellulitis. MS/ Extremity: Pulses equal, no cyanosis. Neurovascular intact. Full, normal range of motion. Neuro: Awake and alert, GCS 15, oriented to person, place, time, and situation. Cranial nerves II-XII grossly intact. Motor strength 5/5 in all extremities. Sensory grossly intact. Cerebellar exam normal. Normal gait. Psych: Awake, alert, with orientation to person, place and time. Behavior, mood, and affect are within normal limits. 02:38 Constitutional: The patient appears alert, awake, obese, uncomfortable. 02:38 ENT: Ear canal(s): are normal, TM's: erythema, that is moderate, that is marked, on the right, Nose: Nasal mucosa: edematous, Mouth: is normal, Posterior pharynx: erythema, Voice: is normal. 02:38 Cardiovascular: Rate: tachycardic, Heart sounds: normal. 02:38 Respiratory: the patient does not display signs of respiratory distress, Respirations: normal, Breath sounds: are clear throughout, bronchitic cough. Vital Signs: 02:38 BP 126 / 75; Pulse 102; Resp 18; Temp 99.4(O); Pulse Ox 97% on R/A; Weight 117.93 kg ak1 (R); Height 5 ft. 5 in. (165.10 cm) (R); Pain 9/10; 02:38 Body Mass Index 43.27 (117.93 kg, 165.10 cm) ak1 MDM: 02:31 Patient medically screened. snw 02:40 Data reviewed: vital signs, nurses notes. Data interpreted: Pulse oximetry: on room air snw is 98 %. Interpretation: acceptable. Counseling: I had a detailed discussion with the patient and/or guardian regarding: the historical points, exam findings, and any diagnostic results supporting the discharge/admit diagnosis, the need for outpatient follow up, to return to the emergency department if symptoms worsen or persist or if there are any questions or concerns that arise at home. Special discussion: Based on the history and exam findings, there is no indication for further emergent testing or inpatient evaluation. I discussed with the patient/guardian the need to see the primary care provider for further evaluation of the symptoms. Administered Medications: 02:53 Drug: Rocephin (cefTRIAXone) 1 grams Route: IM; Site: left gluteus; ak1 02:54 Follow up: Response: No adverse reaction ak1 02:53 Drug: Tussionex Pennkinetic ER 5 ml Route: PO; ak1 02:54 Follow up: Response: No adverse reaction ak1 Disposition: 04:13 Co-signature as Attending Physician, Torito Ramos MD. Disposition: 07/31/18 02:37 Discharged to Home. Impression: Bronchitis, not specified as acute or chronic, Otitis media, unspecified, right ear. - Condition is Stable. - Discharge Instructions: Acute Bronchitis, Adult, Otitis Media, Adult, Nosebleed, Adult, Fever, Adult, Cool Mist Vaporizer, Cough, Adult, Rehydration, Adult. - Prescriptions for Augmentin 875- 125 mg Oral Tablet - take 1 tablet by ORAL route every 12 hours for 10 days; 20 tablet. Zyrtec 10 mg Oral Tablet - take 1 tablet by ORAL route once daily As needed; 20 tablet. Tessalon Perles 100 mg Oral Capsule - take 1 capsule by ORAL route every 8 hours As needed; 15 capsule. Pepcid 20 mg Oral Tablet - take 1 tablet by ORAL route once daily; 20 tablet. - Work release form, Medication Reconciliation Form, Thank You Letter, Antibiotic Education, Prescription Opioid Use form. - Follow up: Private Physician; When: 2 - 3 days; Reason: Recheck today's complaints, Continuance of care, Re-evaluation by your physician. Follow up: Emergency Department; When: As needed; Reason: Worsening of condition. Signatures: Danielle Brown FNP-C FNP-Luciana Lucia, RN RN ak1 Torito Ramos MD MD gs Corrections: (The following items were deleted from the chart) 03:10 02:37 07/31/2018 02:37 Discharged to Home. Impression: Bronchitis, not specified as ak1 acute or chronic; Otitis media, unspecified, right ear. Condition is Stable. Forms are Medication Reconciliation Form, Thank You Letter, Antibiotic Education, Prescription Opioid Use. Follow up: Private Physician; When: 2 - 3 days; Reason: Recheck today's complaints, Continuance of care, Re-evaluation by your physician. Follow up: Emergency Department; When: As needed; Reason: Worsening of condition. snw
[2018-07-31] MEDS ORDERED: CEFTRIAXONE 1000 MG/VIAL ONE (02:55)
[2018-07-31] MEDS ORDERED: WATER FOR INJ,STERILE 10 ML ONE (02:55)
[2018-07-31] MEDS ORDERED: HYDROCODONE/CHLORPHEN 5 ML/OSYR ONE (02:55)
--- NOTE | 2018-07-31 03:10 | ER ---
Nurse's Notes [facility] Name: Aracelis Pike Age: 28 yrs Sex: Female : 1990 Arrival Date: 07/31/2018 Time: 02:24 Bed 8 Private MD: Diagnosis: Bronchitis, not specified as acute or chronic;Otitis media, unspecified, right ear Presentation: 07/31 02:37 Presenting complaint: Patient states: cough, runny nose X2 months. Transition of care: ak1 patient was not received from another setting of care. Onset of symptoms is unknown. Risk Assessment: Do you want to hurt yourself or someone else? Patient reports no desire to harm self or others. Initial Sepsis Screen: Does the patient meet any 2 criteria? No. Patient's initial sepsis screen is negative. Does the patient have a suspected source of infection? No. Patient's initial sepsis screen is negative. Care prior to arrival: None. 02:37 Method Of Arrival: Ambulatory ak1 02:37 Acuity: VIDAL 4 ak1 Triage Assessment: 02:38 General: Appears in no apparent distress. Behavior is calm, cooperative. Pain: ak1 Complains of pain in right ear. EENT: Reports nasal discharge. Neuro: No deficits noted. Cardiovascular: No deficits noted. Respiratory: Reports cough that is Airway is patent. GI: No signs and/or symptoms were reported involving the gastrointestinal system. : No signs and/or symptoms were reported regarding the genitourinary system. Derm: No signs and/or symptoms reported regarding the dermatologic system. Musculoskeletal: No signs and/or symptoms reported regarding the musculoskeletal system. 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 - Social history:: Smoking status: Patient/guardian denies using tobacco. - Ebola Screening: : No symptoms or risks identified at this time. Screenin:42 Abuse screen: Denies threats or abuse. Denies injuries from another. Nutritional ak1 screening: No deficits noted. Tuberculosis screening: No symptoms or risk factors identified. Fall Risk None identified. Vital Signs: 02:38 BP 126 / 75; Pulse 102; Resp 18; Temp 99.4(O); Pulse Ox 97% on R/A; Weight 117.93 kg ak1 (R); Height 5 ft. 5 in. (165.10 cm) (R); Pain 9/10; 02:38 Body Mass Index 43.27 (117.93 kg, 165.10 cm) ak1 ED Course: 02:24 Patient arrived in ED. ds1 02:30 Danielle Brown FNP-C [facility]. snw 02:30 Torito Ramos MD is Attending Physician. snw 02:37 Luciana Davis, CHRISTIN is Primary Nurse. ak1 02:37 Triage completed. ak1 02:38 Arm band placed on Patient placed in an exam room, on a stretcher, on pulse oximetry, ak1 Patient notified of wait time. 02:42 Patient has correct armband on for positive identification. Bed in low position. Call ak1 light in reach. Side rails up X 1. Adult w/ patient. Pulse ox on. NIBP on. 02:54 No provider procedures requiring assistance completed. Patient did not have IV access ak1 during this emergency room visit. Administered Medications: 02:53 Drug: Rocephin (cefTRIAXone) 1 grams Route: IM; Site: left gluteus; ak1 02:54 Follow up: Response: No adverse reaction ak1 02:53 Drug: Tussionex Pennkinetic ER 5 ml Route: PO; ak1 02:54 Follow up: Response: No adverse reaction ak1 Outcome: 02:37 Discharge ordered by . snw 02:54 Condition: good ak1 02:54 Discharge instructions given to patient, family, Instructed on discharge instructions, ak1 follow up and referral plans. no drinking with medication, no driving heavy equipment, medication usage, safety practices, control, Demonstrated understanding of instructions, follow-up care, medications, Prescriptions given X 4. 03:09 Discharged to home ambulatory, with family. ak1 03:10 Patient left the ED. ak1 Signatures: Danielle Brown FNP-C BICYCLE RACER-Carla DaleyTri tolentino ds1 Luciana Davis, RN RN ak1
[2018-07-31 03:25] VITALS: BP 126/75; TEMP 99.4; O2SAT 97
== END 2018-07-31 03:10 | disposition home or self-care (01) ==
LOC: ER 02:19
DX: J40 Bronchitis, not specified as acute or chronic (principal); H66.91 Otitis media, unspecified, right ear; Z88.8 Allergy status to other drugs, medicaments and biological substances
CPT/HCPCS: 96372; 99283

== ENCOUNTER 2018-09-18 15:04 | Emergency (ER) | payer SELFPAY ==
--- OUTSIDE RECORDS SUMMARY | 2018-09-18 15:07 | XMS REPORT | Continuity of Care Document ---
:1990 Author Organization Interface Problems Problem Status Onset Classification Date Comments Source Date Reported PAIN ON RT HIP Active 05/18/20 [place] 16 Jacky Discharge 05/10/20 05/13/2016 Diagnosis: 16 Guys Abdominal pain ABDOMINAL PAIN Active 05/10/20 [place] [id number] Jacky Abdominal Active 01/20/20 Problem 05/21/2016 Data pain<sup>1</sup> 14 migrated Guys from [employer] on 01/28/15. Hip Active 01/20/20 Problem 05/21/2016 Data pain<sup>4</sup> 14 migrated Guys from [employer] on 01/28/15. Acute Resolved 01/10/20 Problem 05/21/2016 Data sinusitis<sup>2, 11 migrated Guys 3</sup> from [employer] on 03/17/15. Hypothyroidism<roland Active 12/19/19 Problem 05/21/2016 Data p>5</sup> 11 migrated Guys from [employer] on 01/28/15. Pharyngitis<sup>8 Resolved 08/15/20 Problem 05/21/2016 Data , 9</sup> 10 migrated Guys from [employer] on 03/17/15. Influenza<sup>6, Resolved 10/27/19 Problem 05/21/2016 Data 7</sup> 08 migrated Guys from [employer] on 03/17/15. Hypothyroidism Resolved Problem 05/21/2016 [facility] Medications Medication Details Route Status Patient Ordering [...] mL, Route: Inactive 0.9% IVP, Drug 016 Guys Form: INJ, Dosing Weight 113.636, kg, PRN, PRN Line Flush, Start date: 05/10/16 12:12:00 CDT, Duration: 30 day, Stop date: 06/09/16 12:11:00 CDTNotes: (Same as: BD Posiflush) Sodium 1,000 mL, Inactive Chloride 0.154 2,000 ml/hr, 016 Guys MEQ/ML Infuse Over: Injectable 30 minutes, Solution [...] RBC 3-5 /HPF 0 - 2 05/19 Guys URINE AND UA CaOx Radha Few /HPF None Seen 05/19 STOOL /HPF Guys URINE AND UA Bacteria Moderate None Seen 05/19 STOOL /HPF /HPF /2015 Guys URINE AND UA Turbidity Slight Cloudy Clear 05/19 Guys (05/18/16 10:39 PM) URINE AND UA Spec Grav >=1.030 <=1.030 05/19 Guys *ABN* (05/18/16 10:39 PM) URINE AND UA pH 6.0 5.0 - 8.0 05/19 Guys URINE AND UA Color Yellow Yellow 05/19 Guys *NA* (05/18/16 10:39 PM) URINE AND UA Bili Negative Negative 05/19 Guys *NA* (05/18/16 10:39 PM) URINE AND UA Blood Trace Negative 05/19 STOOL Guys *ABN* (05/18/16 10:39 PM) URINE AND UA Ketones Negative Negative 05/19 STOOL Guys *NA* (05/18/16 10:39 PM) URINE AND UA Leuk Est Negative Negative 05/19 STOOL Guys (05/18/16 10:39 PM) URINE AND UA Sq Epi Few /LPF Few /LPF 05/19 STOOL Guys URINE AND UA WBC 3-5 /HPF None Seen 05/19 STOOL /HPF /2015 Guys URINE AND UA Protein Negative Negative 05/19 STOOL Guys (05/18/16 10:39 PM) URINE AND UA Glucose Negative Negative 05/19 STOOL Guys (05/18/16 10:39 PM) URINE AND UA Nitrite Negative Negative 05/19 STOOL Guys (05/18/16 10:39 PM) URINE AND UA 0.2 EU/dL 0.1 - 1.0 05/19 [facility] Urobilinogen Guys URINE CHEM U Preg Negative Negative 05/19 Guys (05/18/16 10:39 PM) ELECTROLYTE AGAP 10.9 10.0 - 05/10 S meq/L 20.0 /2015 Guys ELECTROLYTE eGFR 117 05/10 Result Comment: The [...] is not recommended in the following populations: Guys 73m2 Individuals with unstable creatinine concentrations, including [...] meq/L 24 - 32 05/10 S /2015 Guys ELECTROLYTE Calcium Lvl 8.4 mg/dL 8.5 - 10.5 09 S Guys ELECTROLYTE BUN 10 mg/dL 7 - 22 05/10 S Guys ELECTROLYTE Creatinine 0.72 0.50 - 09 S Lvl mg/dL 1. Guys ELECTROLYTE Sodium Lvl 143 meq/L 135 - 145 05/10 [facility]ys ELECTROLYTE Glucose Lvl 103 mg/dL 70 - 99 05/10 Guys ELECTROLYTE Chloride Lvl 111 meq/L 95 - 109 05/10 Guys ELECTROLYTE Potassium Lvl 3.9 meq/L 3.5 - 5.1 05/10 S Guys HEMATOLOGY MCH 28.2 pg 27.0 - 05/10 MH 31.0 Guys HEMATOLOGY MCV 84.9 fL 80.0 - 05/10 98.0 Guys HEMATOLOGY Hct 39.4 % 36.0 - 05/10 48.0 Guys HEMATOLOGY MCHC 33.2 g/dL 32.0 - 05/10 36.0 Guys HEMATOLOGY MPV 8.8 fL 7.4 - 10.4 05/10 [facility]ys HEMATOLOGY Platelet 230 K/CMM 133 - 450 05/10 [facility] HEMATOLOGY RDW 14.9 % 11.5 - 05/10 14. Guys HEMATOLOGY WBC X 10x3 8.7 K/CMM 3.7 - 10.4 05/10 [facility] HEMATOLOGY Hgb 13.1 g/dL 12.0 - 05/10 16.0 Guys HEMATOLOGY RBC X 10x6 4.64 4.20 - 05/10 MH M/CMM 5.40 Guys HEMATOLOGY Lymphocytes # 2.1 K/CMM 1.0 - 5.5 05/10 [facility] HEMATOLOGY Segs-Bands # 5.5 K/CMM 1.5 - 8.1 05/10 [facility] HEMATOLOGY Monocytes # 0.7 K/CMM 0.0 - 0.8 05/10 [facility] HEMATOLOGY Basophils 0.3 % 0.0 - 1.0 05/10 [facility] HEMATOLOGY Eosinophils # 0.4 K/CMM 0.0 - 0.5 05/10 [facility]ys HEMATOLOGY Eosinophils 4.4 % 0.0 - 4.0 05/10 Guys HEMATOLOGY Monocytes 7.9 % 2.0 - 12.0 05/10 Guys HEMATOLOGY Lymphocytes 24.6 % 20.0 - 05/10 MH 40.0 Guys HEMATOLOGY Segs 62.8 % 45.0 - 05/10 75.0 Guys URINE AND UA Glucose Negative Negative 05/10 Guys (05/10/16 11:46 AM) URINE AND UA Nitrite Negative Negative 05/10 Guys (05/10/16 11:46 AM) URINE AND UA Blood Negative Negative 05/10 STOOL Guys (05/10/16 11:46 AM) URINE AND UA Bili Negative Negative 05/10 Guys *NA* (05/10/16 11:46 AM) URINE AND UA Ketones Negative Negative 05/10 Guys *NA* (05/10/16 11:46 AM) URINE AND UA Protein Negative Negative 05/10 Guys (05/10/16 11:46 AM) URINE AND UA pH 6.0 5.0 - 8.0 05/10 Guys URINE AND UA 0.2 EU/dL 0.1 - 1.0 05/10 STOOL Urobilinogen /2015 Guys URINE AND UA Leuk Est Moderate Negative 05/10 Guys *ABN* (05/10/16 11:46 AM) URINE AND UA Color Yellow Yellow 05/10 Guys *NA* (05/10/16 11:46 AM) URINE AND UA Spec Grav 1.025 <=1.030 05/10 Guys URINE AND UA Turbidity Slight Cloudy Clear 05/10 STOOL Guys (05/10/16 11:46 AM) URINE AND UA Bacteria Many /HPF None Seen 05/10 STOOL /HPF Guys URINE AND UA WBC 3-5 /HPF None Seen 05/10 STOOL /HPF Guys URINE AND UA RBC 0-2 /HPF 0 - 2 05/10 Guys URINE AND UA Sq Epi Moderate Few /LPF 05/10 STOOL /LPF /2015 Guys URINE CHEM U Preg Negative Negative 05/10 Guys (05/10/16 11:46 AM) Vital Signs Vital Sign Value Date Comments Source BMI Calculated 43 05/19/2016 [facility] Weight 113.636 05/19/2016 [facility] Height 162.56 cm 05/19/2016 [facility] Systolic (mm Hg) 133 05/19/2016 [facility] Diastolic (mm Hg) 73 05/19/2016 [facility] Heart Rate 83 05/19/2016 [facility] Respitory Rate 18 05/19/2016 [facility] Temperature Oral (F) 98.1 F 05/19/2016 [facility] Heart Rate 76 05/10/2016 [facility] Temperature Oral (F) 98 F 05/10/2016 [facility] Respitory Rate 18 05/10/2016 [facility] Systolic (mm Hg) 125 05/10/2016 [facility] Diastolic (mm Hg) 62 05/10/2016 [facility] BMI Calculated 43 05/10/2016 [facility] Weight 113.636 05/10/2016 [facility] Height 162.56 cm 05/10/2016 [facility] Systolic (mm Hg) 139 05/10/2016 [facility] Diastolic (mm Hg) 78 05/10/2016 [facility] Temperature Oral (F) 98.3 F 05/10/2016 [facility] Heart Rate 88 05/10/2016 [facility] Respitory Rate 18 05/10/2016 [facility] Encounters Location Location Encounter Encounter Reason Attending ADM DC Status Source Details Type Number For Provider Date [facility] [id number] Ayah 05/10 05/10 [facility] Felipajoamy /2015 [facility] [id number] Ayah 05/19 05/19 [facility] /2015 [facility] Procedures Procedure Code Date Perfomer Comments Source section [id number] [facility]
--- NOTE | 2018-09-18 18:01 | ER ---
Nurse's Notes [facility] Name: Aracelis Pike Age: 28 yrs Sex: Female : 1990 Arrival Date: 09/18/2018 Time: 15:07 Bed 5 Private MD: Diagnosis: Vomiting;Urinary tract infection, site not specified Presentation: 09/18 15:12 Presenting complaint: Patient states: nausea and dizziness started yesterday and sv started vomiting right now. Transition of care: patient was not received from another setting of care. Onset of symptoms was September 17, 2018. Care prior to arrival: None. 15:12 Method Of Arrival: Ambulatory sv 15:12 Acuity: VIDAL 3 sv 18:35 Risk Assessment: Do you want to hurt yourself or someone else? Patient reports no aj1 desire to harm self or others. Initial Sepsis Screen: Does the patient meet any 2 criteria? No. Patient's initial sepsis screen is negative. Does the patient have a suspected source of infection? No. Patient's initial sepsis screen is negative. 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 - Social history:: Smoking status: Patient/guardian denies using tobacco. - Ebola Screening: : No symptoms or risks identified at this time. Screenin:30 Abuse screen: Denies threats or abuse. Denies injuries from another. Nutritional aj1 screening: No deficits noted. Tuberculosis screening: No symptoms or risk factors identified. 18:35 Fall Risk None identified. aj1 Assessment: 16:30 General: Appears in no apparent distress. comfortable, Behavior is calm, cooperative, aj1 appropriate for age. Pain: Denies pain. Neuro: Level of Consciousness is awake, alert, obeys commands. Neuro: Reports dizziness, Denies blurred vision headache diplopia. Cardiovascular: Patient's skin is warm and dry. Respiratory: Airway is patent Respiratory effort is even, unlabored, Respiratory pattern is regular, symmetrical. GI: Abdomen is non-distended, Reports nausea, vomiting, Patient states that she has had these symptoms in the past when she was with her first child. Patient was asked if she is currently , states "its a possibility". : No signs and/or symptoms were reported regarding the genitourinary system. EENT: No signs and/or symptoms were reported regarding the EENT system. Derm: No signs and/or symptoms reported regarding the dermatologic system. Skin is pink, warm \\T\\ dry. normal. Musculoskeletal: Range of motion: intact in all extremities. 17:30 Reassessment: Patient appears in no apparent distress at this time. No changes from aj1 previously documented assessment. Patient and/or family updated on plan of care and expected duration. Pain level reassessed. Patient is alert, oriented x 3, equal unlabored respirations, skin warm/dry/pink. 18:34 Reassessment: Patient appears in no apparent distress at this time. No changes from aj1 previously documented assessment. Patient and/or family updated on plan of care and expected duration. Pain level reassessed. Patient is alert, oriented x 3, equal unlabored respirations, skin warm/dry/pink. Vital Signs: 15:12 BP 130 / 73; Pulse 102; Resp 18; Temp 97.4; Pulse Ox 97% ; Weight 117.93 kg; Height 5 sv ft. 5 in. (165.10 cm); Pain 0/10; 15:12 Body Mass Index 43.27 (117.93 kg, 165.10 cm) sv ED Course: 15:07 Patient arrived in ED. rg4 15:12 Triage completed. sv 15:13 Arm band placed on Patient placed in waiting room, Patient notified of wait time. sv 16:13 Get Reardon PA is PHCP. [facility] 16:13 Ryan Shipman MD is Attending Physician. [facility] 16:16 Alexus Hunter, CHRISTIN is Primary Nurse. aj1 16:30 Patient has correct armband on for positive identification. Bed in low position. Call aj1 light in reach. 16:30 No provider procedures requiring assistance completed. aj1 17:51 Urine collected: clean catch specimen, cloudy, stephen colored. jb1 17:51 EKG done, by plant technician/control room operator. reviewed by Get JERNIGAN. jb1 18:35 Patient did not have IV access during this emergency room visit. aj1 Administered Medications: No medications were administered Outcome: 17:59 Discharge ordered by . jm 18:35 Discharged to home ambulatory. aj1 18:35 Condition: good 18:35 Discharge instructions given to patient, Instructed on discharge instructions, follow up and referral plans. medication usage, Demonstrated understanding of instructions, follow-up care, medications, Prescriptions given X 2. 18:36 Patient left the ED. aj1 Signatures: Darryn Chin jb1 Alexus Hunter RN RN aj1 Beverly Alarcon RN RN sv Mickail, Joel, PA PA jmm Garcia, Rubi rg4
--- NOTE | 2018-09-18 18:01 | EDPHYS ---
Physician Documentation [facility] Name: Aracelis Pike Age: 28 yrs Sex: Female : 1990 Arrival Date: 09/18/2018 Time: 15:07 Bed 5 Private MD: ED Physician Ryan Shipman HPI: 09/18 16:32 This 28 yrs old Female presents to ER via Ambulatory with complaints of jmm Nausea, Dizziness. 16:32 The patient presents to the emergency department with nausea, vomiting. Onset: The jmm symptoms/episode began/occurred today. Possible causes: . The symptoms are aggravated by nothing. The symptoms are alleviated by nothing. Associated signs and symptoms: Pertinent positives:. The patient has experienced a previous episode, when previously . This is a 28 year old female with a history of migraines that presents to the ED withi complaints of fatigue beginning 2 to 3 days ago along with vomiting beginning today. Patient states having similar symptoms when she found out she was with her last child. Patient denies dizziness with walking or at rest. Denies abdominal pain. LMP 08/13/2018. . 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 - Social history:: Smoking status: Patient/guardian denies using tobacco. - Ebola Screening: : No symptoms or risks identified at this time. ROS: 16:32 Cardiovascular: Negative for chest pain, palpitations, and edema, Respiratory: Negative jmm for shortness of breath, cough, wheezing, and pleuritic chest pain. 16:32 Constitutional: Positive for fatigue. 16:32 Abdomen/GI: Positive for vomiting. 16:32 Neuro: Positive for weakness. 16:32 All other systems are negative. Exam: 16:32 Head/Face: atraumatic. Eyes: EOMI, no conjunctival erythema appreciated ENT: Moist jmm Mucus Membranes Neck: Trachea midline, Supple Chest/axilla: Normal chest wall appearance and motion. Cardiovascular: Regular rate and rhythm. No edema appreciated Respiratory: Normal respirations, no respiratory distress appreciated Abdomen/GI: Non distended, soft Back: Normal ROM Skin: General appearance color normal MS/ Extremity: Moves all extremities, no obvious deformities appreciated, no edema noted to the lower extremities 16:32 Constitutional: The patient appears in no acute distress, alert, awake. 16:32 Neuro: Orientation: is normal, Mentation: is normal, Memory: is normal, Cerebellar function: normal finger to nose testing, Gait: is steady. 16:32 Psych: Behavior/mood is pleasant, cooperative. Vital Signs: 15:12 BP 130 / 73; Pulse 102; Resp 18; Temp 97.4; Pulse Ox 97% ; Weight 117.93 kg; Height 5 sv ft. 5 in. (165.10 cm); Pain 0/10; 15:12 Body Mass Index 43.27 (117.93 kg, 165.10 cm) sv MDM: 16:32 Patient medically screened. [facility] 17:58 Data reviewed: vital signs, nurses notes. Counseling: I had a detailed discussion with vero the patient and/or guardian regarding: the historical points, exam findings, and any diagnostic results supporting the discharge/admit diagnosis, lab results, the need for outpatient follow up, to return to the emergency department if symptoms worsen or persist or if there are any questions or concerns that arise at home. ED course: Patient is advised of the need to follow up with WOOL FLEECE GRADER PCP for reevaluation. Patient is alert non toxic in appearance, tolerates PO in the ED. Patient is otherwise given strict return precautions. Patient understood and agrees with the plan of care. . 09/18 17:57 Order name: Urine Dipstick--Ancillary (enter results); Complete Time: 18:16 09/18 17:57 Order name: Urine --Ancillary (enter results); Complete Time: 18:16 09/18 16:32 Order name: Urine Dipstick-Ancillary (obtain specimen); Complete Time: 17:53 [facility] 09/18 16:32 Order name: Urine Test (obtain specimen); Complete Time: 17:53 [facility] 09/18 16:41 Order name: EKG - Nurse/Tech; Complete Time: 17:53 [facility] 09/18 17:42 Order name: EKG Electrocardiogram EDMS Administered Medications: No medications were administered Disposition: 19:04 Co-signature as Attending Physician, Ryan Shipman MD. rn Disposition: 09/18/18 17:59 Discharged to Home. Impression: Vomiting, Urinary tract infection, site not specified. - Condition is Stable. - Discharge Instructions: Hyperemesis Gravidarum, Urinary Tract Infection, Adult, Eating Plan for Hyperemesis Gravidarum. - Prescriptions for Zofran ODT 4 mg Oral tablet,disintegrating - place 1 tablet by TRANSLINGUAL route every 4-6 hours; 20 tablet. Cephalexin 250 mg Oral Capsule - take 1 capsule by ORAL route every 12 hours for 10 days; 20 capsule. - Medication Reconciliation Form, Thank You Letter, Antibiotic Education, Prescription Opioid Use form. - Follow up: Private Physician; When: 2 - 3 days; Reason: Recheck today's complaints, Continuance of care, Re-evaluation by your physician. - Notes: You may take doxylamine and vitamin b6 nightly as needed to help with your nausea. Please return to the ED if symptoms worsen. Signatures: Dispatcher [employer] EDMS Alexus Hunter RN RN aj1 Beverly Alarcon RN RN Get Reardon PA PA jmm Nieto, Roman, MD MD rn sane: (The following items were deleted from the chart) 18:36 17:59 09/18/2018 17:59 Discharged to Home. Impression: Vomiting; Urinary tract aj1 infection, site not specified. Condition is Stable. Forms are Medication Reconciliation Form, Thank You Letter, Antibiotic Education, Prescription Opioid Use. Follow up: Private Physician; When: 2 - 3 days; Reason: Recheck today's complaints, Continuance of care, Re-evaluation by your physician. vero
[2018-09-18 18:12] LABS: Urine Blood 2+ (NEG); Urine Glucose NEGATIVE (NEG); Urine Protein NEGATIVE (NEG)
[2018-09-18 18:43] VITALS: BP 130/73; TEMP 97.4; O2SAT 97
--- NOTE | 2018-09-21 11:50 | EKG ---
Test Date: 2018-09-18 Test Time: 17:46:19 Transportation Security Officer: DAMARIS MEASUREMENT RESULTS: Intervals: Rate: 88 WI: 140 QRSD: 84 QT: 376 QTc: 454 [place]: P: 37 WI: 140 QRS: 8 T: 11 INTERPRETIVE STATEMENTS: Normal sinus rhythm T wave abnormality, consider anterolateral ischemia Abnormal ECG No previous ECG available for comparison Electronically Signed On 09-21-18 11:43:30 GOLD BLOWER by Aries Alvarez
== END 2018-09-18 18:36 | disposition home or self-care (01) ==
LOC: ER 15:04
DX: O23.41 Unspecified infection of urinary tract in pregnancy, first trimester (principal); Z3A.01 Less than 8 weeks gestation of pregnancy; Z88.8 Allergy status to other drugs, medicaments and biological substances
CPT/HCPCS: 81003; 81025; 93005

== ENCOUNTER 2018-09-21 21:23 | Emergency (ER) | payer SELFPAY ==
--- OUTSIDE RECORDS SUMMARY | 2018-09-21 21:26 | XMS REPORT | Continuity of Care Document ---
:1990 Author Organization Interface Problems Problem Status Onset Classification Date Comments Source Date Reported PAIN ON RT HIP Active 05/18/20 [facility] 16 Jack[place] Discharge 05/10/20 05/13/2016 Diagnosis: 16 [place] Abdominal pain ABDOMINAL PAIN Active 05/10/20 [place] [id number] Jack[place] Abdominal Active 01/20/20 Problem 05/21/2016 Data pain<sup>1</sup> 14 migrated [place] from [employer] on 01/28/15. Hip Active 01/20/20 Problem 05/21/2016 Data pain<sup>4</sup> 14 migrated [place] from [employer] on 01/28/15. Acute Resolved 01/10/20 Problem 05/21/2016 Data sinusitis<sup>2, 11 migrated [place] 3</sup> from [employer] on 03/17/15. Hypothyroidism<roland Active 12/19/19 Problem 05/21/2016 Data p>5</sup> 11 migrated [place] from [employer] on 01/28/15. Pharyngitis<sup>8 Resolved 08/15/20 Problem 05/21/2016 Data , 9</sup> 10 migrated [place] from [employer] on 03/17/15. Influenza<sup>6, Resolved 10/27/19 Problem 05/21/2016 Data 7</sup> 08 migrated [place] from [employer] on 03/17/15. Hypothyroidism Resolved Problem 05/21/2016 [facility] Medications Medication Details Route Status [...] mL, Route: Inactive 0.9% IVP, Drug 016 [place] Form: INJ, Dosing Weight 113.636, kg, PRN, PRN Line Flush, Start date: 05/10/16 12:12:00 CDT, Duration: 30 day, Stop date: 06/09/16 12:11:00 CDTNotes: (Same as: BD Posiflush) Sodium 1,000 mL, Inactive Chloride 0.154 2,000 ml/hr, 016 [place] MEQ/ML Infuse Over: Injectable 30 minutes, Solution [...] RBC 3-5 /HPF 0 - 2 05/19 [place] URINE AND UA CaOx Radha Few /HPF None Seen 05/19 STOOL /HPF [place] URINE AND UA Bacteria Moderate None Seen 05/19 STOOL /HPF /HPF /2015 [place] URINE AND UA Turbidity Slight Cloudy Clear 05/19 [place] (05/18/16 10:39 PM) URINE AND UA Spec Grav >=1.030 <=1.030 05/19 [place] *ABN* (05/18/16 10:39 PM) URINE AND UA pH 6.0 5.0 - 8.0 05/19 [place] URINE AND UA Color Yellow Yellow 05/19 [place] *NA* (05/18/16 10:39 PM) URINE AND UA Bili Negative Negative 05/19 [place] *NA* (05/18/16 10:39 PM) URINE AND UA Blood Trace Negative 05/19 STOOL [place] *ABN* (05/18/16 10:39 PM) URINE AND UA Ketones Negative Negative 05/19 STOOL [place] *NA* (05/18/16 10:39 PM) URINE AND UA Leuk Est Negative Negative 05/19 STOOL [place] (05/18/16 10:39 PM) URINE AND UA Sq Epi Few /LPF Few /LPF 05/19 STOOL [place] URINE AND UA WBC 3-5 /HPF None Seen 05/19 STOOL /HPF /2015 [place] URINE AND UA Protein Negative Negative 05/19 STOOL [place] (05/18/16 10:39 PM) URINE AND UA Glucose Negative Negative 05/19 STOOL [place] (05/18/16 10:39 PM) URINE AND UA Nitrite Negative Negative 05/19 STOOL [place] (05/18/16 10:39 PM) URINE AND UA 0.2 EU/dL 0.1 - 1.0 05/19 [facility] Urobilinogen [place] URINE CHEM U Preg Negative Negative 05/19 [place] (05/18/16 10:39 PM) ELECTROLYTE AGAP 10.9 10.0 - 05/10 S meq/L 20.0 /2015 [place] ELECTROLYTE eGFR 117 05/10 Result Comment: The [...] is not recommended in the following populations: [place] 73m2 Individuals with unstable creatinine concentrations, including [...] meq/L 24 - 32 05/10 S /2015 [place] ELECTROLYTE Calcium Lvl 8.4 mg/dL 8.5 - 10.5 09 S [place] ELECTROLYTE BUN 10 mg/dL 7 - 22 05/10 S [place] ELECTROLYTE Creatinine 0.72 0.50 - 09 S Lvl mg/dL 1. [place] ELECTROLYTE Sodium Lvl 143 meq/L 135 - 145 05/10 [place] ELECTROLYTE Glucose Lvl 103 mg/dL 70 - 99 05/10 [place] ELECTROLYTE Chloride Lvl 111 meq/L 95 - 109 05/10 [place] ELECTROLYTE Potassium Lvl 3.9 meq/L 3.5 - 5.1 05/10 S [place] HEMATOLOGY MCH 28.2 pg 27.0 - 05/10 MH 31.0 [place] HEMATOLOGY MCV 84.9 fL 80.0 - 05/10 98.0 [place] HEMATOLOGY Hct 39.4 % 36.0 - 05/10 48.0 [place] HEMATOLOGY MCHC 33.2 g/dL 32.0 - 05/10 36.0 [place] HEMATOLOGY MPV 8.8 fL 7.4 - 10.4 05/10 [place] HEMATOLOGY Platelet 230 K/CMM 133 - 450 05/10 [place] HEMATOLOGY RDW 14.9 % 11.5 - 05/10 14. [place] HEMATOLOGY WBC X 10x3 8.7 K/CMM 3.7 - 10.4 05/10 [place] HEMATOLOGY Hgb 13.1 g/dL 12.0 - 05/10 16.0 [place] HEMATOLOGY RBC X 10x6 4.64 4.20 - 05/10 MH M/CMM 5.40 [place] HEMATOLOGY Lymphocytes # 2.1 K/CMM 1.0 - 5.5 05/10 [place] HEMATOLOGY Segs-Bands # 5.5 K/CMM 1.5 - 8.1 05/10 [place] HEMATOLOGY Monocytes # 0.7 K/CMM 0.0 - 0.8 05/10 [place] HEMATOLOGY Basophils 0.3 % 0.0 - 1.0 05/10 [place] HEMATOLOGY Eosinophils # 0.4 K/CMM 0.0 - 0.5 05/10 [place] HEMATOLOGY Eosinophils 4.4 % 0.0 - 4.0 05/10 [place] HEMATOLOGY Monocytes 7.9 % 2.0 - 12.0 05/10 [place] HEMATOLOGY Lymphocytes 24.6 % 20.0 - 05/10 MH 40.0 [place] HEMATOLOGY Segs 62.8 % 45.0 - 05/10 75.0 [place] URINE AND UA Glucose Negative Negative 05/10 [place] (05/10/16 11:46 AM) URINE AND UA Nitrite Negative Negative 05/10 [place] (05/10/16 11:46 AM) URINE AND UA Blood Negative Negative 05/10 STOOL [place] (05/10/16 11:46 AM) URINE AND UA Bili Negative Negative 05/10 [place] *NA* (05/10/16 11:46 AM) URINE AND UA Ketones Negative Negative 05/10 [place] *NA* (05/10/16 11:46 AM) URINE AND UA Protein Negative Negative 05/10 [place] (05/10/16 11:46 AM) URINE AND UA pH 6.0 5.0 - 8.0 05/10 [place] URINE AND UA 0.2 EU/dL 0.1 - 1.0 05/10 STOOL Urobilinogen /2015 [place] URINE AND UA Leuk Est Moderate Negative 05/10 [place] *ABN* (05/10/16 11:46 AM) URINE AND UA Color Yellow Yellow 05/10 [place] *NA* (05/10/16 11:46 AM) URINE AND UA Spec Grav 1.025 <=1.030 05/10 [place] URINE AND UA Turbidity Slight Cloudy Clear 05/10 STOOL [place] (05/10/16 11:46 AM) URINE AND UA Bacteria Many /HPF None Seen 05/10 STOOL /HPF [place] URINE AND UA WBC 3-5 /HPF None Seen 05/10 STOOL /HPF [place] URINE AND UA RBC 0-2 /HPF 0 - 2 05/10 [place] URINE AND UA Sq Epi Moderate Few /LPF 05/10 STOOL /LPF /2015 [place] URINE CHEM U Preg Negative Negative 05/10 [place] (05/10/16 11:46 AM) Vital Signs Vital Sign Value Date Comments Source BMI Calculated 43 05/19/2016 [facility] Weight 113.636 05/19/2016 [facility] Height 162.56 cm 05/19/2016 [facility] Systolic (mm Hg) 133 05/19/2016 [facility] Diastolic (mm Hg) 73 05/19/2016 [facility] Heart Rate 83 05/19/2016 [facility] Respitory Rate 18 05/19/2016 [facility] Temperature Oral (F) 98.1 F 05/19/2016 [facility] Heart Rate 76 05/10/2016 [facility] Temperature Oral (F) 98 F 05/10/2016 [facility] Respitory Rate 18 05/10/2016 [facility] Systolic (mm Hg) 125 05/10/2016 [facility] Diastolic (mm Hg) 62 05/10/2016 [facility] BMI Calculated 43 05/10/2016 [facility] Weight 113.636 05/10/2016 [facility] Height 162.56 cm 05/10/2016 [facility] Systolic (mm Hg) 139 05/10/2016 [facility] Diastolic (mm Hg) 78 05/10/2016 [facility] Temperature Oral (F) 98.3 F 05/10/2016 [facility] Heart Rate 88 05/10/2016 [facility] Respitory Rate 18 05/10/2016 [facility] Encounters Location Location Encounter Encounter Reason Attending ADM DC Status Source Details Type Number For Provider Date Date [facility] [id number] Ayah 05/10 05/10 [facility] Felipajoamy /2015 [facility] [id number] Ayah 05/19 05/19 [facility] /2015 [facility] Procedures Procedure Code Date Perfomer Comments Source section [id number] [facility]
[2018-09-21 21:53] LABS: Urine Blood NEGATIVE (NEG); Urine Glucose NEGATIVE (NEG); Urine Protein NEGATIVE (NEG); Urine Specific Gravity 1.025 (1.005-1.030)
[2018-09-21 22:30] LABS: Absolute Lymphocytes (CBC) 2.2 K/uL (0.7-4.9); Absolute Monocytes 0.7 K/uL (0.1-1.3); Absolute Neutrophil 4.5 K/uL (1.8-8.0); Basophils % 0.4 % (0-1.3); Eosinophils % 4.5 % (0-4.4); Lymphocytes % 28.8 % (15.3-44.8); MPV 8.6 fL (7.6-11.3); Monocytes % 8.9 % (3.3-12.3); RBC Red Blood Cell Count 4.24 M/uL (3.86-4.86)
[2018-09-21 22:42] LABS: ALT/SGPT 41 U/L (12-78); AST/SGOT 26 U/L (15-37); Albumin 3.5 g/dL (3.4-5.0); Alkaline Phosphatase 55 U/L (45-117); BUN Blood Urea Nitrogen 7 mg/dL (7-18); Bicarbonate 23 mmol/L (21-32); Bilirubin Direct 0.1 mg/dL (0-0.2); Bilirubin Total 0.2 mg/dL (0.2-1.0); Glucose Level 108 mg/dL (74-106); Lipase 112 U/L (73-393); Potassium 3.4 mmol/L (3.5-5.1); Sodium Level 143 mmol/L (136-145)
--- NOTE | 2018-09-22 04:07 | ER ---
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 LMP 08/13/18. Transition of care: patient was not received from another setting of care. Onset of symptoms was September 21, 2018. Risk Assessment: Do you want to hurt yourself or someone else? Patient reports no desire to harm self or others. Initial Sepsis Screen: Does the patient meet any 2 criteria? No. Patient's initial sepsis screen is negative. Does the patient have a suspected source of infection? No. Patient's initial sepsis screen is negative. Care prior to arrival: None. 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 - Social history:: Smoking status: Patient/guardian denies using tobacco. - Ebola Screening: : No symptoms or risks identified at this time. Screenin:39 Abuse screen: Denies threats or abuse. Denies injuries from another. Nutritional ed1 screening: No deficits noted. Tuberculosis screening: No symptoms or risk factors identified. Fall Risk None identified. Assessment: 21:39 General: Appears in no apparent distress. Behavior is calm, cooperative, Pt states "I'm ed1 just worried because with my last I was high risk and had a lot of problems.". Pain: Complains of pain in right upper quadrant and left upper quadrant Pain does not radiate. Pain currently is 5 out of 10 on a pain scale. at worst was 7 out of 10 on a pain scale. Quality of pain is described as crampy, Pain began 1 hour ago. Is episodic, lasting a few minutes. Neuro: Level of Consciousness is awake, alert, obeys commands, Oriented to person, place, time, situation. Cardiovascular: Denies chest pain, Heart tones S1 S2 present. Respiratory: Airway is patent Respiratory effort is even, unlabored, Respiratory pattern is regular, symmetrical, Breath sounds are clear bilaterally. Denies cough, shortness of breath. GI: Abdomen is obese, Bowel sounds present X 4 quads. Abd is soft X 4 quads Abdomen is tender to palpation in right upper quadrant and left upper quadrant Reports nausea, vomiting, Patient currently denies diarrhea. : Reports vaginal bleeding that is spotty. EENT: No signs and/or symptoms were reported regarding the EENT system. Derm: Skin is intact, is healthy with good turgor, Skin is dry, Skin is normal, Skin temperature is warm. Musculoskeletal: Circulation, motion, and sensation intact. Range of motion: intact in all extremities. 22:25 Reassessment: Patient appears in no apparent distress at this time. No changes from ed1 previously documented assessment. Patient and/or family updated on plan of care and expected duration. Pain level reassessed. Patient is alert, oriented x 3, equal unlabored respirations, skin warm/dry/pink. Patient states symptoms have not improved. 23:27 Reassessment: Patient appears in no apparent distress at this time. No changes from ed1 previously documented assessment. Patient and/or family updated on plan of care and expected duration. Pain level reassessed. Patient is alert, oriented x 3, equal unlabored respirations, skin warm/dry/pink. Patient states symptoms have not improved. Vital Signs: 21:38 BP 156 / 88; Pulse 100; Resp 16; Temp 98.6(O); Pulse Ox 100% on R/A; Weight 117.93 kg ed1 (R); Height 5 ft. 5 in. (165.10 cm) (R); Pain 5/10; 22:25 BP 149 / 85; Pulse 92; Resp 17; Pulse Ox 100% on R/A; Pain 5/10; ed1 23:27 BP 139 / 85; Pulse 73; Resp 18; Pulse Ox 100% on R/A; Pain 4/10; ed1 21:38 Body Mass Index 43.27 (117.93 kg, 165.10 cm) ed1 ED Course: 21:25 Patient arrived in ED. al2 21:28 Yuliana Huber, RN is Primary Nurse. ed1 21:31 Triage completed. ak1 21:31 Arm band placed on Patient placed in an exam room, on a stretcher, on pulse oximetry, ak1 Patient notified of wait time. 21:39 Awaiting ED provider evaluation. ed1 21:39 Patient has correct armband on for positive identification. Bed in low position. Call ed1 light in reach. Side rails up X 1. Pulse ox on. NIBP on. Warm blanket given. 21:41 Rory Caal MD is Attending Physician. tw4 22:04 TRANSVAG OB In Process Unspecified. EDMS 22:25 Initial lab(s) drawn, by me, sent to lab. Missed attempt(s): 22 gauge in right ed1 antecubital area. Bleeding controlled, band aid applied, catheter tip intact. 23:53 No provider procedures requiring assistance completed. Patient did not have IV access ed1 during this emergency room visit. Administered Medications: No medications were administered Outcome: 23:42 Discharge ordered by . tw4 23:53 Discharged to home ambulatory. ed1 23:53 Condition: good 23:53 Discharge instructions given to patient, Instructed on discharge instructions, follow up and referral plans. Demonstrated understanding of instructions, follow-up care. 23:53 Patient left the ED. ed1 Signatures: Dispatcher [employer] EDYuliana Rodriguez RN RN ed1 Luciana Davis RN RN ak1 Fatemeh Yuen al2 Rory Caal MD MD tw4 Corrections: (The following items were deleted from the chart) 21:43 21:39 General: Appears in no apparent distress. Behavior is calm, cooperative, ed1 ed1 23:53 21:39 Pain: Complains of pain in right upper quadrant and left upper quadrant Pain does ed1 not radiate. Pain currently is 5 out of 10 on a pain scale. at worst was 7 out of 10 on a pain scale. Quality of pain is described as crampy, Pain began 1 day ago. Is episodic, lasting a few minutes. ed1
--- NOTE | 2018-09-22 04:08 | EDPHYS ---
Physician Documentation [facility] Name: Aracelis Pike Age: 28 yrs Sex: Female : 1990 Arrival Date: 09/21/2018 Time: 21:25 Bed 8 Private MD: ED Physician Rory Caal HPI: 09/21 23:29 This 28 yrs old Female presents to ER via Ambulatory with complaints of tw4 Abdominal Cramping, Vaginal Bleeding. 23:29 The patient presents to the emergency department with abdominal pain, vaginal bleeding, tw4 that is light. The estimated gestational age is 5 weeks. Previous pregnancies: in previous pregnancies patient has had vaginal delivery. Associated signs and symptoms: The patient has no apparent associated signs or symptoms. The patient has not experienced similar symptoms in the past. 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 - Social history:: Smoking status: Patient/guardian denies using tobacco. - Ebola Screening: : No symptoms or risks identified at this time. ROS: 23:29 Constitutional: Negative for fever, chills, and weight loss, Eyes: Negative for injury, tw4 pain, redness, and discharge, Cardiovascular: Negative for chest pain, palpitations, and edema, Respiratory: Negative for shortness of breath, cough, wheezing, and pleuritic chest pain, Abdomen/GI: Negative for abdominal pain, nausea, vomiting, diarrhea, and constipation, Back: Negative for injury and pain, MS/Extremity: Negative for injury and deformity, Skin: Negative for injury, rash, and discoloration, Neuro: Negative for headache, weakness, numbness, tingling, and seizure. Exam: 23:29 Constitutional: This is a well developed, well nourished patient who is awake, alert, tw4 and in no acute distress. Head/Face: Normocephalic, atraumatic. Chest/axilla: Normal chest wall appearance and motion. Nontender with no deformity. No lesions are appreciated. Cardiovascular: Regular rate and rhythm with a normal S1 and S2. No gallops, murmurs, or rubs. Normal PMI, no JVD. No pulse deficits. Respiratory: Lungs have equal breath sounds bilaterally, clear to auscultation and percussion. No rales, rhonchi or wheezes noted. No increased work of breathing, no retractions or nasal flaring. Abdomen/GI: Soft, non-tender, with normal bowel sounds. No distension or tympany. No guarding or rebound. No evidence of tenderness throughout. MS/ Extremity: Pulses equal, no cyanosis. Neurovascular intact. Full, normal range of motion. Neuro: Awake and alert, GCS 15, oriented to person, place, time, and situation. Cranial nerves II-XII grossly intact. Motor strength 5/5 in all extremities. Sensory grossly intact. Cerebellar exam normal. Normal gait. Vital Signs: 21:38 BP 156 / 88; Pulse 100; Resp 16; Temp 98.6(O); Pulse Ox 100% on R/A; Weight 117.93 kg ed1 (R); Height 5 ft. 5 in. (165.10 cm) (R); Pain 5/10; 22:25 BP 149 / 85; Pulse 92; Resp 17; Pulse Ox 100% on R/A; Pain 5/10; ed1 23:27 BP 139 / 85; Pulse 73; Resp 18; Pulse Ox 100% on R/A; Pain 4/10; ed1 21:38 Body Mass Index 43.27 (117.93 kg, 165.10 cm) ed1 MDM: 21:41 Patient medically screened. tw4 23:29 Differential diagnosis: ectopic . Data reviewed: vital signs, nurses notes. tw4 Data interpreted: Pulse oximetry: Interpretation: normal. Counseling: I had a detailed discussion with the patient and/or guardian regarding: the historical points, exam findings, and any diagnostic results supporting the discharge/admit diagnosis, radiology results. Special discussion: I discussed with the patient/guardian in detail that at this point there is no indication for admission to the hospital. It is understood, however, that if the symptoms persist or worsen the patient needs to return immediately for re-evaluation. ED course: pt rested comfortably on the stretcher in the ED. 09/21 21:42 Order name: Basic Metabolic Panel; Complete Time: 22:46 09/21 22:46 Interpretation: Normal except: K 3.4; CL 110; GLUC 108. 09/21 21:42 Order name: CBC with Diff; Complete Time: 22:46 09/21 22:46 Interpretation: Normal except: RDW 15.5. 09/21 21:42 Order name: Creatinine for Radiology; Complete Time: 22:46 09/21 22:46 Interpretation: Within normal limits: CRE 0.74. 09/21 21:42 Order name: Hepatic Function; Complete Time: 22:46 09/21 22:46 Interpretation: Normal except: A/G 1.0. 09/21 21:42 Order name: Lipase; Complete Time: 22:46 09/21 22:46 Interpretation: Within normal limits: LIP 112. 09/21 21:42 Order name: Abo/rh Typing; Complete Time: 23:41 09/21 23:41 Interpretation: Within normal limits. 09/21 21:42 Order name: IV Saline Lock; Complete Time: 22:25 09/21 21:42 Order name: Labs collected and sent; Complete Time: 22:25 09/21 21:42 Order name: NPO; Complete Time: 22:25 09/21 21:42 Order name: Urine Dipstick-Ancillary (obtain specimen); Complete Time: 22:25 09/21 21:49 Order name: Urine Dipstick--Ancillary (enter results); Complete Time: 23:41 09/21 23:41 Interpretation: Within normal limits. 09/21 21:49 Order name: Urine --Ancillary (enter results); Complete Time: 23:41 09/21 23:41 Interpretation: Normal except: URINE PREG POS. 4 Administered Medications: No medications were administered Disposition: 09/21/18 23:42 Discharged to Home. Impression: Threatened . - Condition is Stable. - Discharge Instructions: Threatened Miscarriage, Threatened Miscarriage, [id number]. - Medication Reconciliation Form, Thank You Letter, Antibiotic Education, Prescription Opioid Use form. - Follow up: Private Physician; When: Upon discharge from the Emergency Department; Reason: Recheck today's complaints, Continuance of care. - Problem is new. - Symptoms have improved. Signatures: Dispatcher [employer] [facility] Yuliana Huber, RN RN ed1 Luciana Davis RN RN ak1 Rory Caal MD MD tw4 Corrections: (The following items were deleted from the chart) 21:54 21:48 OB Complete+US.RAD.BRZ ordered. [facility] EDND 23:53 23:42 09/21/2018 23:42 Discharged to Home. Impression: Threatened . Condition ed1 is Stable. Forms are Medication Reconciliation Form, Thank You Letter, Antibiotic Education, Prescription Opioid Use. Follow up: Private Physician; When: Upon discharge from the Emergency Department; Reason: Recheck today's complaints, Continuance of care. Problem is new. Symptoms have improved. tw4
[2018-09-22 04:32] VITALS: TEMP 98.6; O2SAT 100
[2018-09-22 04:37] VITALS: BP 139/85
--- NOTE | 2018-09-22 08:51 | RAD REPORT ---
EXAM DESCRIPTION: US - Transvaginal OB - 09/22/2018 7:00 am CLINICAL HISTORY: ABD CRAMPING, COMPARISON: No comparisons FINDINGS: A small cystic lesion in the fundal endometrium is noted suspicious for a early gestationa l sac. Shape of the sac is normal for early gestational age. Mean sac diameter is 4 mm correlating to 5 weeks 0 days gestational age. No yolk sac or pole yet seen. The placenta is not yet developed due to early gestational age. The maternal adnexa and ovaries are within normal limits. Normal Doppler blood flow was demonstrated to both ovaries. IMPRESSION: Very early IUP findings are present. Consider followup sonography in 10-12 days.
== END 2018-09-21 23:53 | disposition home or self-care (01) ==
LOC: ER 21:23
DX: O20.0 Threatened abortion (principal); Z3A.01 Less than 8 weeks gestation of pregnancy
CPT/HCPCS: 36415; 76813; 76817; 80048; 80076; 81003; 81025; 83690; 85025; 86900; 86901; 99283

== ENCOUNTER 2020-08-10 22:01 | Emergency (ER) | payer OTHER, SELFPAY ==
--- OUTSIDE RECORDS SUMMARY | 2020-08-10 22:03 | XMS REPORT | Continuity of Care Document ---
:1990 Author Organization [facility] t Address [address] [place] [address] Care Team Providers Name Role Phone Visit, Nurse Attending Clinician Unavailable Akila RAMIREZ Attending Clinician Km RAMIREZ Attending Clinician Doctor Unassigned, Name Attending Clinician Unavailable Yelitza Thakur Attending Clinician Akila RAMIREZ Admitting Clinician Problems This patient has no known problems. Allergies, Adverse Reactions, Alerts This patient has no known allergies or adverse reactions. Medications This patient has no known medications. Procedures This patient has no known procedures. Encounters Start End Encounter Admission Attending Care Care Encounter Source Date/Time Date/Time Type Type Clinicians Facility Department ID 2019-09-08 2019-09-08 [id number] [facility] 15:59:00 15:59:00 2019-05-18 2019-05-18 Nurse Visit, [facility] [id number] 14:22:59 15:01:03 [facility] [id number] Nurse [facility] [id number] MATERNAL [id number] & CHILD [address] [place] [address] 2019-05-08 2019-05-10 [facility] Mehrdad GAFFNEY [id number] 18:12:00 15:00:00 Encounter Mag brandogitucker KIRKPATRICK [id number] [id number] 2019-05-09 2019-05-09 Anesthesia KmAntonio YEIMY [id number] 00:07:00 02:21:00 KAYA [id number] ANNEX [id number] 2019-05-08 2019-05-08 Orders Doctor YEIMY [id number] 00:00:00 00:00:00 Only Unassigned, KAYA [id number] Henagar [facility] [id number] 2019-05-05 2019-05-05 Routine PERCY Gracia [id number] 15:36:12 16:03:03 Jayson Torre GUN SYNCHRONIZER [id number] Visit [facility] [id number] MATERNAL [id number] & CHILD [address] [place] [address] - HUGO Results This patient has no known results.
[2020-08-10] MEDS ORDERED: HYDROCODONE/APAP 5/325 MG TAB ONE (22:47)
--- NOTE | 2020-08-10 23:06 | ER ---
Nurse's Notes [facility] [place], [place] Name: Aracelis Pike Age: 30 yrs Sex: Female : 1990 Arrival Date: 08/10/2020 Time: 22:02 Bed 18 Private MD: Diagnosis: Sprain of ankle Presentation: 08/10 22:05 Acuity: VIDAL 4 sg 22:05 Chief complaint: Patient states: I have pain in my right ankle, I was at [employer] when I sg stepped wrong and "rolled my ankle.". Coronavirus screen: Client denies travel out of the [place] in the last 14 days. Ebola Screen: Patient negative for fever greater than or equal to 101.5 degrees Fahrenheit, and additional compatible Ebola Virus Disease symptoms Patient denies exposure to infectious person. Patient denies travel to an Ebola-affected area in the 21 days before illness onset. No symptoms or risks identified at this time. Initial Sepsis Screen: Does the patient meet any 2 criteria? No. Patient's initial sepsis screen is negative. Does the patient have a suspected source of infection? No. Patient's initial sepsis screen is negative. Risk Assessment: Do you want to hurt yourself or someone else? Patient reports no desire to harm self or others. Onset of symptoms was August 10, 2020. Care prior to arrival: None. Transition of care: patient was not received from another setting of care. 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 - Social history:: Smoking status: Patient denies any tobacco usage or history of. Screenin:19 Abuse screen: Denies threats or abuse. Nutritional screening: No deficits noted. jv1 Tuberculosis screening: No symptoms or risk factors identified. Fall Risk Fall in past 12 months (25 points). Assessment: 22:20 General: Appears in no apparent distress. obese, well groomed, Behavior is calm, jv1 cooperative, appropriate for age. Pain: Complains of pain in right ankle Pain does not radiate. Pain currently is 6 out of 10 on a pain scale. Quality of pain is described as aching. Neuro: Level of Consciousness is awake, alert, obeys commands, Oriented to person, place, time, situation, Appropriate for age Performance Analyst are equal bilaterally. Cardiovascular: Denies chest pain, Heart tones S1 S2. Respiratory: Airway is patent Respiratory effort is even, unlabored, Respiratory pattern is regular, symmetrical, Breath sounds are clear bilaterally. GI: Abdomen is round non-distended, Bowel sounds present X 4 quads. : No signs and/or symptoms were reported regarding the genitourinary system. EENT: No signs and/or symptoms were reported regarding the EENT system. Derm: No signs and/or symptoms reported regarding the dermatologic system. Musculoskeletal: Circulation, motion, and sensation intact. Capillary refill < 3 seconds, Range of motion: limited in right ankle. 23:00 Reassessment: provider in the room with pt. jv1 23:07 Reassessment: Patient appears in no apparent distress at this time. No changes from jv1 previously documented assessment. Patient and/or family updated on plan of care and expected duration. Pain level reassessed. Patient is alert, oriented x 3, equal unlabored respirations, skin warm/dry/pink. pt getting a splint. 23:22 Reassessment: pt refused crutches. jv1 Vital Signs: 22:19 BP 114 / 71; Pulse 73; Resp 18; Temp 98.2; Pulse Ox 100% on R/A; Pain 6/10; jv1 23:34 BP 109 / 75; Pulse 70; Resp 18; Temp 98.2; Pulse Ox 100% on R/A; Pain 0/10; jv1 ED Course: 22:02 Patient arrived in ED. cl3 22:05 Get Reardon PA is PHCP. jmm 22:05 Ryan Shipman MD is Attending Physician. jmm 22:05 Triage completed. sg 22:05 Arm band placed on. sg 22:22 Patient has correct armband on for positive identification. Adult w/ patient. jv1 22:44 X-ray completed. Portable x-ray completed in exam room. Patient tolerated procedure nj well. 22:45 Ankle Right 3 View XRAY In Process Unspecified. EDMS 23:06 Rangel Green MD is Referral Physician. jmm 23:18 Orthoglass splint: Posterior short lleg splint applied on right leg. jp3 23:19 Venkat wrap to right ankle. jp3 23:22 Pt refused crutches. jp3 23:35 No provider procedures requiring assistance completed. Patient did not have IV access jv1 during this emergency room visit. Administered Medications: 22:30 Drug: [place] 5 mg-325 mg 1 tabs Route: PO; jv1 23:14 Follow up: Response: No adverse reaction; Pain is decreased jv1 Outcome: 23:06 Discharge ordered by . vero 23:35 Discharged to home via wheelchair, with family. jv1 23:35 Condition: stable 23:35 Discharge instructions given to patient, family, Instructed on discharge instructions, follow up and referral plans. Demonstrated understanding of instructions, follow-up care, pt refused boot and crutches 23:36 Patient left the ED. jv1 Signatures: Dispatcher [employer] EDMS Micheal Sevilla RN RN sg Mickail, Joel, PA PA jmm Jordan, Nathan nj Pisarski, Jacob jp3 Siena Beard RN RN jCarolyn Cotter cl3
--- NOTE | 2020-08-10 23:06 | EDPHYS ---
Physician Documentation [facility] Name: Aracelis Pike Age: 30 yrs Sex: Female : 1990 Arrival Date: 08/10/2020 Time: 22:02 Bed 18 Private MD: ED Physician Ryan Shipman HPI: 08/10 22:59 This 30 yrs old Female presents to ER via Wheelchair with complaints of Ankle jmm Injury. 22:59 The patient presents with an injury, pain. Onset: The symptoms/episode began/occurred jmm acutely, just prior to arrival. Associated signs and symptoms: Pertinent positives: swelling, pain. Modifying factors: The symptoms are alleviated by nothing, the symptoms are aggravated by movement. The patient has not experienced similar symptoms in the past. Patient states she rolled her right ankle when stepping down. Denies other injury. Pain radiates up the right leg. . 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 - Social history:: Smoking status: Patient denies any tobacco usage or history of. ROS: 22:59 Constitutional: Negative for fever, chills, and weight loss, Cardiovascular: Negative jmm for chest pain, palpitations, and edema, Respiratory: Negative for shortness of breath, cough, wheezing, and pleuritic chest pain. 22:59 MS/extremity: Positive for injury or acute deformity, pain. 22:59 All other systems are negative. Exam: 22:59 Constitutional: This is a well developed, well nourished patient who is awake, alert, jmm and in no acute distress. Head/Face: atraumatic. Eyes: EOMI, no conjunctival erythema appreciated ENT: Moist Mucus Membranes Neck: Trachea midline, Supple Chest/axilla: Normal chest wall appearance and motion. Cardiovascular: Regular rate and rhythm. No edema appreciated Respiratory: Normal respirations, no respiratory distress appreciated Abdomen/GI: Non distended, soft Back: Normal ROM Skin: General appearance color normal 22:59 Musculoskeletal/extremity: ROM: intact in all extremities, right lateral malleolus ttp, no obvious deformity, full dorsalis pulse, no pain at the base of the 5th metatarsal, compartments are soft, NVI. 22:59 Skin: Appearance: Color: normal in color. 22:59 Neuro: Orientation: is normal, Mentation: is normal, Memory: is normal. 22:59 Psych: Behavior/mood is pleasant, cooperative. Vital Signs: 22:19 BP 114 / 71; Pulse 73; Resp 18; Temp 98.2; Pulse Ox 100% on R/A; Pain 6/10; jv1 23:34 BP 109 / 75; Pulse 70; Resp 18; Temp 98.2; Pulse Ox 100% on R/A; Pain 0/10; jv1 Procedures: 23:02 Splinting: Splint applied to right leg and right ankle using right post. applied by ila tech. Examined by me, post splint application: neurovascular intact, 2+ distal pulses palpable, brisk capillary refill noted, Patient tolerated well. MDM: 22:07 Patient medically screened. [facility] 23:05 Data reviewed: vital signs, nurses notes. Counseling: I had a detailed discussion with vero the patient and/or guardian regarding: the historical points, exam findings, and any diagnostic results supporting the discharge/admit diagnosis, radiology results, the need for outpatient follow up, to return to the emergency department if symptoms worsen or persist or if there are any questions or concerns that arise at home. ED course: Xray normal. patient advised to follow up with ortho for reevaluation. Otherwise given strict return precautions. Patient understood and agrees with the plan of care. . 08/10 22:12 Order name: Ankle Right 3 View XRAY [facility] 08/10 22:52 Order name: Posterior Leg Splint; Complete Time: 23:19 [facility] 08/10 22:52 Order name: Crutches; Complete Time: 23:19 [facility] Administered Medications: 22:30 Drug: [place] 5 mg-325 mg 1 tabs Route: PO; jv1 23:14 Follow up: Response: No adverse reaction; Pain is decreased jv1 Disposition: 23:05 Chart complete. [facility] 08/11 04:07 Co-signature as Attending Physician, Ryan Shipman MD. rn Disposition: 08/10/20 23:06 Discharged to Home. Impression: Sprain of ankle. - Condition is Stable. - Discharge Instructions: Ankle Sprain. - Medication Reconciliation Form, Thank You Letter, Antibiotic Education, Prescription Opioid Use form. - Follow up: Rangel Green MD; When: 2 - 3 days; Reason: Recheck today's complaints, Continuance of care, Re-evaluation by your physician. Signatures: Dispatcher [employer] EDMicheal Vick, RN RN Get Stallworth PA PA jmm Nieto, Roman, MD MD rn Vicente, Joyce, RN RN jv1 Corrections: (The following items were deleted from the chart) 08/10 23:36 23:06 08/10/2020 23:06 Discharged to Home. Impression: Sprain of ankle. Condition is jv1 Stable. Forms are Medication Reconciliation Form, Thank You Letter, Antibiotic Education, Prescription Opioid Use. Follow up: Dr. Rangel Green; When: 2 - 3 days; Reason: Recheck today's complaints, Continuance of care, Re-evaluation by your physician. vero
--- NOTE | 2020-08-11 07:32 | RAD REPORT ---
EXAM DESCRIPTION: RAD - Ankle Right 3 View - 08/10/2020 10:45 pm CLINICAL HISTORY: Right ankle pain FINDINGS: No fracture or dislocation is seen.
== END 2020-08-10 23:36 | disposition home or self-care (01) ==
LOC: ER 22:01
DX: S93.401A Sprain of unspecified ligament of right ankle, initial encounter (principal); X58.XXXA Exposure to other specified factors, initial encounter; Y93.01 Activity, walking, marching and hiking; Y92.512 Supermarket, store or market as the place of occurrence of the external cause; Z88.8 Allergy status to other drugs, medicaments and biological substances
CPT/HCPCS: 99283

== ENCOUNTER 2020-12-06 18:53 | Emergency (ER) | payer OTHER, SELFPAY ==
--- OUTSIDE RECORDS SUMMARY | 2020-12-06 18:56 | XMS REPORT | Continuity of Care Document ---
:1990 Author Organization [facility] t Address [address] [place] [address] [address]. [address] [place] [address] Care Team Providers Name Role Phone [place] Jason DO Attending Clinician Visit, Nurse Attending Clinician Unavailable Akila RAMIREZ Attending Clinician Km RAMIREZ Attending Clinician Doctor Unassigned, Name Attending Clinician Unavailable Yelitza Thakur Attending Clinician Akila RAMIREZ Admitting Clinician Problems This patient has no known problems. Allergies, Adverse Reactions, Alerts Allergy Allergy Status Severity Reaction(s) Onset Inactive Treating Comm ents Source Name Type Date Date Clinician Phenerga Allergy Active Moderate Itching 2013-0 Vill age n to to severe 6-20 Family substanc 00:00: Practic e 00 e Social History Smoking Status Start Date Stop Date Source Never Smoker [facility] Family P ractice Medications Ordered Filled Start Stop Current Ordering Indication Dosage Frequency Signature Comments Components Source Medication Medication Date Date Medication? Clinician (SIG) Name Name mupirocin mupirocin No mupirocin [facility] calcium 2 % calcium 2 % calcium 2 Family topical topical % topical Prac tic cream APPLY cream APPLY cream e A SMALL A SMALL APPLY A AMOUNT TO AMOUNT TO SMALL THE THE AMOUNT TO AFFECTED AFFECTED THE AREA BY AREA BY AFFECTED TOPICAL TOPICAL AREA BY ROUTE 3 ROUTE 3 TOPICAL TIMES PER TIMES PER ROUTE 3 DAY FOR 10 DAY FOR 10 TIMES PER DAYS DAYS DAY FOR 10 DAYS tramadol 50 tramadol 50 No 1 Q6H tramadol [place] mg tablet mg tablet 50 mg Fami ly Take 1 Take 1 tablet Practic tablet tablet Take 1 e every 6 every 6 tablet hours by hours by every 6 oral route oral route hours by as needed as needed oral route for 3 days. for 3 days. as needed for 3 days. Vital Signs Vital Name Observation Time Observation Value Comments Source BP Diastolic 2020-09-03 00:00:00 85 mm[Hg] [facility] Height 2020-09-03 00:00:00 65 [in_i] [facility] BMI (Body Mass 2020-09-03 00:00:00 43.4 kg/m2 [facility] BP Systolic 2020-09-03 00:00:00 125 mm[Hg] [facility] Body Weight 2020-09-03 00:00:00 261 [lb_av] [facility] Procedures Procedure Date / Time Performed Performing Clinician [facility] e Caesarean Section 2019-05-09 00:00:00 [facility] Caesarean Section 2013-03-30 00:00:00 [facility] Colonoscopy [facility] Plan of Care Planned Activity Planned Date Details Comments Source Instructions [facility] Encounters Start End Encounter Admission Attending Care Care Encounter Source Date/Time Date/Time Type Type Clinicians Facility Department ID 2020-11-21 2020-11-21 Patient Eren [facility] [id number] 00:00:00 00:00:00 Outreach [facility] [id number] [facility] [id number] MINDI [id number] 2020-09-03 2020-09-03 Rahel Lipscomb [facility] [place] - [id number] [facility] 00:00:00 00:00:00 Estevan Raffaele Famil y 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 2019-09-08 2019-09-08 Emergency [place] [facility] [id number] BL 15:59:00 15:59:00 2019-05-18 2019-05-18 Nurse Visit, [facility] [id number] 14:22:59 15:01:03 Visit Ang-Rmchp BARREL TESTER [id number] Nurse [facility] [id number] MATERNAL [id number] & CHILD 107 [facility] 2019-05-08 2019-05-10 [facility] David-Gayle GAFFNEY [id number] 18:12:00 15:00:00 Encounter Shannon michaels KAYA [id number] [id number] 2019-05-09 2019-05-09 Anesthesia Antonio Barbour [id number] 00:07:00 02:21:00 KAYA [id number] ANNEX [id number] 2019-05-08 2019-05-08 Orders Doctor YEIMY [id number] 00:00:00 00:00:00 Only Unassigned, KAYA [id number] [place] [facility] [id number] 2019-05-05 2019-05-05 Routine PERCY Gracai [id number] 15:36:12 16:03:03 Roshunda R BARREL TESTER [id number] Visit [facility] [id number] MATERNAL [id number] & CHILD 107 [facility] Results This patient has no known results.
[2020-12-06 20:32] LABS: SARS-COV-2 RT PCR NEGATIVE (NEGATIVE)
--- NOTE | 2020-12-06 20:38 | ER ---
Nurse's Notes [facility] Name: Aracelis Pike Age: 30 yrs Sex: Female : 1990 Arrival Date: 12/06/2020 Time: 18:58 Bed 7 Private MD: Diagnosis: Acute upper respiratory infection, unspecified;Acute pharyngitis Presentation: 12/06 19:15 Chief complaint: Patient states: Sore throat and SOB since yesterday. Had 3 separate ca1 exposures to Covid+ individuals recently. Coronavirus screen: Client denies travel out of the [place] in the last 14 days. shortness of breath, sore throat, Client presents with at least one sign or symptom that may indicate coronavirus-19. Standard/surgical mask placed on the client. Provider contacted for isolation considerations. Ebola Screen: Patient negative for fever greater than or equal to 101.5 degrees Fahrenheit, and additional compatible Ebola Virus Disease symptoms Patient denies exposure to infectious person. Patient denies travel to an Ebola-affected area in the 21 days before illness onset. No symptoms or risks identified at this time. Initial Sepsis Screen: Does the patient meet any 2 criteria? No. Patient's initial sepsis screen is negative. Does the patient have a suspected source of infection? No. Patient's initial sepsis screen is negative. Risk Assessment: Do you want to hurt yourself or someone else? Patient reports no desire to harm self or others. Onset of symptoms was December 06, 2020. 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 - Social history:: Smoking status: Patient denies any tobacco usage or history of. Screenin:09 Abuse screen: Denies threats or abuse. Denies injuries from another. Nutritional rv screening: No deficits noted. Tuberculosis screening: No symptoms or risk factors identified. Fall Risk None identified. Assessment: 20:05 General: Appears comfortable, Behavior is calm, cooperative. Pain: Denies pain. Neuro: rv Level of Consciousness is awake, alert, obeys commands, Oriented to person, place, time, situation. Cardiovascular: Patient's skin is warm and dry. Respiratory: Airway is patent Respiratory effort is even, unlabored, Breath sounds are clear bilaterally. EENT: Throat is clear. Vital Signs: 19:15 BP 159 / 66; Pulse 67; Resp 18 S; Temp 97.6(TE); Pulse Ox 100% on R/A; Weight 114.76 kg ca1 (R); Height 5 ft. 5 in. (165.10 cm); 20:50 BP 145 / 68; Pulse 66; Resp 16; Pulse Ox 100% on R/A; rv 19:15 Body Mass Index 42.10 (114.76 kg, 165.10 cm) ca1 ED Course: 18:58 Patient arrived in ED. am2 19:18 Triage completed. ca1 19:18 Arm band placed on right wrist. ca1 19:22 Strep Sent. [facility] 19:41 [facility]ardon [facility] 19:41 Zack Purdy MD is Attending Physician. [facility] 20:05 Mando Beard, CHRISTIN is Primary Nurse. rv 20:09 Patient has correct armband on for positive identification. Pulse ox on. NIBP on. rv 20:09 No provider procedures requiring assistance completed. Patient did not have IV access rv during this emergency room visit. Administered Medications: 20:46 Drug: Decadron (dexamethasone) 10 mg Route: IM; Site: left deltoid; rv 20:49 Follow up: Response: Medication administered at discharge. rv Outcome: 20:38 Discharge ordered by MD. [facility] 20:46 Discharged to home ambulatory. rv 20:46 Condition: good 20:46 Discharge instructions given to patient, Instructed on discharge instructions, follow up and referral plans. medication usage, Demonstrated understanding of instructions, follow-up care, medications, Prescriptions given X 1. 20:50 Patient left the ED. rv Signatures: Get Reardon PA PA Aracelis Diana am2 Mando Beard, CHRISTIN RN rv Kadi Funes RN RN [facility] Corrections: (The following items were deleted from the chart) 19:48 19:22 CORONAVIRUS+MR.LAB.BRZ drawn and sent. ca1 EDMS 19:48 19:22 Influenza Screen (A \T\ B)+BA.LAB.BRZ drawn and sent. ca1 EDMS
--- NOTE | 2020-12-06 20:38 | EDPHYS ---
Physician Documentation [facility] Name: Aracelis Pike Age: 30 yrs Sex: Female : 1990 Arrival Date: 12/06/2020 Time: 18:58 Bed 7 Private MD: ED Physician Zack Purdy HPI: 12/06 19:55 This 30 yrs old Female presents to ER via Ambulatory with complaints of Sore jmm Throat, exposed to covid, Shortness Of Breath. 19:55 The patient presents with sore throat. Onset: The symptoms/episode began/occurred jmm gradually, 1 day(s) ago. Modifying factors: The symptoms are alleviated by nothing, the symptoms are aggravated by nothing. The patient has not experienced similar symptoms in the past. Patient states 2 coworkers and the patient's boyfriend tested positive for covid-19. . 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 - Social history:: Smoking status: Patient denies any tobacco usage or history of. ROS: 19:55 Constitutional: Negative for fever, chills, and weight loss, Cardiovascular: Negative jmm for chest pain, palpitations, and edema. 19:55 ENT: Positive for sore throat. 19:55 Respiratory: Positive for cough, shortness of breath. 19:55 All other systems are negative. Exam: 19:55 Constitutional: This is a well developed, well nourished patient who is awake, alert, jmm and in no acute distress. Head/Face: atraumatic. Eyes: EOMI, no conjunctival erythema appreciated ENT: Moist Mucus Membranes Neck: Trachea midline, Supple Chest/axilla: Normal chest wall appearance and motion. Cardiovascular: Regular rate and rhythm. No edema appreciated Respiratory: Normal respirations, no respiratory distress appreciated Abdomen/GI: Non distended, soft Back: Normal ROM Skin: General appearance color normal MS/ Extremity: Moves all extremities, no obvious deformities appreciated, no edema noted to the lower extremities Neuro: Awake and alert, normal gait Psych: Behavior is normal, Mood is normal, Patient is cooperative and pleasant Vital Signs: 19:15 BP 159 / 66; Pulse 67; Resp 18 S; Temp 97.6(TE); Pulse Ox 100% on R/A; Weight 114.76 kg ca1 (R); Height 5 ft. 5 in. (165.10 cm); 20:50 BP 145 / 68; Pulse 66; Resp 16; Pulse Ox 100% on R/A; rv 19:15 Body Mass Index 42.10 (114.76 kg, 165.10 cm) ca1 MDM: 19:46 Patient medically screened. [facility] 20:36 Data reviewed: vital signs, nurses notes. Counseling: I had a detailed discussion with [facility] the patient and/or guardian regarding: the historical points, exam findings, and any diagnostic results supporting the discharge/admit diagnosis, lab results, the need for outpatient follow up, to return to the emergency department if symptoms worsen or persist or if there are any questions or concerns that arise at home. ED course: Patient is alert and non toxic in appearance in the ED. No signs of resp distress. patient is advised to follow up with primary care provider and otherwise given strict return precautions. Patient understood and agrees with the plan of care. . 12/06 19:19 Order name: Strep; Complete Time: 20:08 ca1 12/06 20:06 Order name: Throat Culture EDMS 12/06 20:32 Order name: COVID-19/FLU A+B; Complete Time: 20:36 EDMS Administered Medications: 20:46 Drug: Decadron (dexamethasone) 10 mg Route: IM; Site: left deltoid; rv 20:49 Follow up: Response: Medication administered at discharge. rv Disposition: 12/07 08:17 Co-signature as Attending Physician, Zack Purdy MD. pkl Disposition: 12/06/20 20:38 Discharged to Home. Impression: Acute upper respiratory infection, unspecified, Acute pharyngitis. - Condition is Stable. - Discharge Instructions: Pharyngitis, Upper Respiratory Infection, Adult. - Prescriptions for Zithromax Z- Rodolfo 250 mg Oral Tablet - take 1 tablet by ORAL route as directed for 5 days Day 1 - take two (2) tablets one time. Day 2, 3, 4 , 5 take one (1) tablet once daily.; 6 tablet. - Medication Reconciliation Form, Thank You Letter, Antibiotic Education, Prescription Opioid Use form. - Follow up: Private Physician; When: 2 - 3 days; Reason: Recheck today's complaints, Continuance of care, Re-evaluation by your physician. Signatures: Dispatcher [employer] EDCO Zack Purdy MD MD pkl Mickail, Joel, PA PA jmm Vicente, Ronaldo, RN RN rv Kadi Funes RN RN ca1 Corrections: (The following items were deleted from the chart) 12/06 19:48 19:21 CORONAVIRUS+MR.LAB.BRZ ordered. EDCO EDCO 19:48 19:21 Influenza Screen (A \T\ B)+BA.LAB.BRZ ordered. [facility] EDCO 20:50 20:38 12/06/2020 20:38 Discharged to Home. Impression: Acute upper respiratory rv infection, unspecified; Acute pharyngitis. Condition is Stable. Forms are Medication Reconciliation Form, Thank You Letter, Antibiotic Education, Prescription Opioid Use. Follow up: Private Physician; When: 2 - 3 days; Reason: Recheck today's complaints, Continuance of care, Re-evaluation by your physician. vero
[2020-12-06] MEDS ORDERED: dexAMETHasone 10 MG/ML VIAL ONE (21:03)
[2020-12-07 12:29] VITALS: TEMP 97.6; O2SAT 100
[2020-12-07 12:30] VITALS: BP 145/68
== END 2020-12-06 20:50 | disposition home or self-care (01) ==
LOC: ER 18:53
DX: J06.9 Acute upper respiratory infection, unspecified (principal); J02.9 Acute pharyngitis, unspecified; Z20.822 Contact with and (suspected) exposure to COVID-19; Z88.8 Allergy status to other drugs, medicaments and biological substances
CPT/HCPCS: 0240U; 87070; 87081; 96372; 99284; J1100

== ENCOUNTER 2022-09-13 18:08 | Emergency (ER) | payer SELFPAY ==
--- OUTSIDE RECORDS SUMMARY | 2022-09-13 18:12 | XMS REPORT | Continuity of Care Document ---
:1990 Author Organization [facility] t Address [address] [place] [address] Dr. Amezquita. [address] [place] [address] Care Team Providers Name Role Phone JAYSON GARDUNO Primary Care Physician Unavailable BYRON CHAHAL Attending Clinician Unavailable JANET HIGH Attending Clinician Unavailable CARMEN ALONSO Attending Clinician Unavailable Bui_Q_WAG Attending Clinician Unavailable RED MELENDEZ Attending Clinician Unavailable Kristopher Jason DO Attending Clinician [place], [facility] Attending Clinician Unavailable Shannon Wilburn MD Attending Clinician [phone] Antonio Barbour MD Attending Clinician Doctor Unassigned, [place] Attending Clinician Unavailable Jayson Thakur Attending Clinician Bui_Q_WAG Admitting Clinician Unavailable Shannon Wilburn MD Admitting Clinician [phone] Payers Payer Name Policy Type Policy Number Effective Date Expiration Date Remy [facility]oran [facility] [id number] 2021 00:00:00 [place] [facility] [id number] 2018 HEALTH 00:00:00 Problems This patient has no known problems. Allergies, Adverse Reactions, Alerts Allergy Allergy Status Severity Reaction(s) Onset Inactive Treating Comm ents Source Name Type Date Date Clinician MIKAL DRUG Active Rash 2015-09 Univers ZINE HCL INGREDI 10-02 ity of 00:00: [place] [facility] Phenerga Allergy Active Moderate Itching Vill age n to to severe 6-20 Family substanc 00:00: Practic e 00 e Social History Smoking Status Start Date Stop Date Source Never Smoker [facility] racluiz Medications Ordered Filled Start Stop Current Ordering Indication Dosage Frequency Signature Comments Components Source Medication Medication Date Date Medication? Clinician (SIG) Name Name mupirocin mupirocin No mupirocin [facility] calcium 2 % calcium 2 % calcium [...] Source BP Diastolic 2020-09-03 00:00:00 85 mm[Hg] [facility] Height 2020-09-03 00:00:00 65 [in_i] [facility] BMI (Body Mass 2020-09-03 00:00:00 43.4 kg/m2 [facility] BP Systolic 2020-09-03 00:00:00 125 mm[Hg] [facility] Body Weight 2020-09-03 00:00:00 261 [lb_av] [facility] Procedures Procedure Date / Time Performed Performing Clinician Simon ceballos Caesarean Section 2019-05-09 00:00:00 [facility] Caesarean Section 2013-03-30 00:00:00 [facility] Colonoscopy [facility] Plan of Care Planned Activity Planned Date Details Comments Source Instructions [facility] Encounters Start End Encounter Admission Attending Care Care Encounter Source Date/Time Date/Time Type Type Clinicians Facility Department ID 2021-10-11 2021-10-11 Outpatient Yelitza CHAHAL [facility] [id number] Univers 09:00:00 09:00:00 BYRON ity o f [facility] 2021-10-05 2021-10-05 Outpatient R ANILA, [facility] [id number] Univers 09:00:00 09:00:00 JANET tyy o f [facility] 2021-10-04 2021-10-04 Outpatient R TIRSO, [facility] [id number] Univers 08:40:00 08:40:00 BYRON ity o f [facility] 2021-09-28 2021-09-28 Outpatient R GAVIN, [facility] [id number] Univers 14:00:00 14:00:00 CARMEN [facility] 2020-12-30 2020-12-30 Outpatient [facility] [id number] Univers 11:15:00 11:15:00 [facility] 2020-12-26 2020-12-26 Outpatient Bui_Q_WAG VFP VFP [id number] [facility] 06:58:00 06:58:00 [id number] Family Practic e 2020-12-09 2020-12-09 Outpatient R NORA, [facility] [id number] Univers 13:40:00 13:40:00 RED [facility] 2020-11-21 2020-11-21 [facility] [id number] 00:00:00 00:00:00 Outreach [facility] [id number] [facility] [id number] [facility] [id number] 2020-09-03 2020-09-03 Outpatient Bui_Q_WAG VFP VFP [id number] 29-20 [facility] 03:37:00 03:37:00 [id number] Family Practic e 2020-09-03 2020-09-03 Port[place] B VFP [place] - [id number] Village 00:00:00 00:00:00 Raffaele Barreto Famil y DECORATOR STORE: [id number] Medical - Pract [facility], [place] [address], ([facility]) [place] [id number] , Ph. 2020-09-02 2020-09-02 Outpatient Bui_Q_WAG VFP [facility] [id number] [facility] 05:27:00 05:27:00 [id number] Family Practic e 2019-09-08 2019-09-08 Emergency E MHBL MHBL [id number] MHBL 15:59:00 15:59:00 2019-05-18 2019-05-18 Nurse Visit, RUST [id number] 14:22:59 15:01:03 Visit [facility] PLASTICS FABRICATOR AND ASSEMBLER [id number] Nurse [facility] [id number] MATERNAL [id number] & CHILD 107 [facility] 2019-05-08 2019-05-10 [facility] YEIMY [id number] 18:12:00 15:00:00 Encounter suerachaelShannon [id number] [place] [id number] 2019-05-09 2019-05-09 Anesthesia Antonio Barbour 1.2.840.114 [id number] 00:07:00 02:21:00 KAYA [id number] [place] [id number] 2019-05-08 2019-05-08 Orders Doctor YEIMY [id number] 00:00:00 00:00:00 Only Unassigned, KAYA [id number] [place] [facility] [id number] 2019-05-05 2019-05-05 Routine Basil RUST [id number] 15:36:12 16:03:03 Roshunda R PLASTICS FABRICATOR AND ASSEMBLER [id number] Visit [facility] [id number] MATERNAL [id number] & CHILD 107 [facility] Results This patient has no known results.
--- NOTE | 2022-09-13 20:00 | EDPHYS ---
Physician Documentation [facility] Name: Aracelis Pike Age: 32 yrs Sex: Female : 1990 Arrival Date: 09/13/2022 Time: 18:14 Bed 18 Private MD: ED Physician Sixto Carroll HPI: 09/13 18:33 This 32 yrs old Female presents to ER via Ambulatory with complaints of Burn. [facility] 18:33 Is a 32-year-old female with history of depression and migraines a presents emerged [facility] department with a burn to her abdomen. Patient states the injury occurred approximately 2 weeks ago. Patient is attempted yzbd-sgf-fqwuaij medication to help relieve the burn but states it is increased in redness and itchiness. Patient has been using triple antibiotic ointment and ivlq-fav-stderqu burn cream. Denies any fever, purulent drainage. 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 - Social history:: Smoking status: Patient denies any tobacco usage or history of. ROS: 18:33 Constitutional: Negative for fever, chills, and weight loss, Cardiovascular: Negative [facility] for chest pain, palpitations, and edema, Respiratory: Negative for shortness of breath, cough, wheezing, and pleuritic chest pain. 18:33 Skin: Positive for burn, rash. 18:33 All other systems are negative. Exam: 18:33 Constitutional: This is a well developed, well nourished patient who is awake, alert, [facility] and in no acute distress. Head/Face: atraumatic. Eyes: EOMI, no conjunctival erythema appreciated ENT: Moist Mucus Membranes Neck: Trachea midline, Supple Chest/axilla: Normal chest wall appearance and motion. Cardiovascular: Regular rate and rhythm. No edema appreciated Respiratory: Normal respirations, no respiratory distress appreciated 18:33 Abdomen/GI: Lower abdominal burn approximately 0.5% body surface area appreciated, second-degree burn. No purulent drainage, no induration appreciated. 18:33 Back: pain, is absent. 18:33 Musculoskeletal/extremity: ROM: intact in all extremities. 18:33 Skin: Appearance: Color: normal in color. 18:33 Neuro: Orientation: is normal, Mentation: is normal, Memory: is normal. 18:33 Psych: Behavior/mood is pleasant, cooperative. Vital Signs: 18:19 BP 134 / 66; Pulse 63; Resp 17; Temp 98.9; Pulse Ox 100% ; Weight 92.99 kg; Height 5 ap3 ft. 5 in. (165.10 cm); 18:19 Body Mass Index 34.11 (92.99 kg, 165.10 cm) ap3 MDM: 18:33 Patient medically screened. [facility] 19:58 Data reviewed: vital signs, nurses notes. Counseling: I had a detailed discussion with vero the patient and/or guardian regarding: the historical points, exam findings, and any diagnostic results supporting the discharge/admit diagnosis, the need for outpatient follow up, to return to the emergency department if symptoms worsen or persist or if there are any questions or concerns that arise at home. ED course: I discussed plan of care with patient as well as burn care. Patient advised to follow up with pcp and otherwise given strict return precautions patient understood an dgarees with the plan of care. . 09/13 19:01 Order name: Jing. Order: burn care; Complete Time: 19:25 [facility] Administered Medications: 19:30 Not Given (med not availablee): Polysporin (bacitracin zinc) Ointment 1 application kd3 Topical bolus Disposition Summary: 09/13/22 20:00 Discharge Ordered Location: Home [facility] Condition: Stable jm Diagnosis - Burn of second degree of abdominal wall [facility] Followup: jmm - With: Private Physician - When: 2 - 3 days - Reason: Recheck today's complaints, Continuance of care, Re-evaluation by your physician Discharge Instructions: - Discharge Summary Sheet [facility] - Burn Care, Adult [facility] Forms: - Medication Reconciliation Form [facility] - Thank You Letter vero - Antibiotic Education jmm - Prescription Opioid Use jm Prescriptions: - Polysporin - Apply to affected area 1 application by TRANSDERMAL route 2 times per day As jmm needed; 1 tube; Refills: 0, Product Selection Permitted - pyrantel pamoate 50 mg/mL Oral suspension - take 11 milligram per kilogram by ORAL route one time Please take 20 ml oral x jmm 1; 20 milliliter; Refills: 0, Product Selection Permitted Signatures: Sixto Carroll MD MD cha Mickail, Joel, PA PA jmm Prokisch, Amanda, RN RN ap3 Hazel Hebert RN RN kd3
--- NOTE | 2022-09-13 20:00 | ER ---
Nurse's Notes [facility] Name: Aracelis Pike Age: 32 yrs Sex: Female : 1990 Arrival Date: 09/13/2022 Time: 18:14 Bed 18 Private MD: Diagnosis: Burn of second degree of abdominal wall Presentation: 09/13 18:19 Chief complaint: Patient states: she received a burn at work on her lower abdomen on ap3 08/24/2022. patient has been attempting to tend to the burn at home, however she has not been able to get the burn to heal. Coronavirus screen: At this time, the client does not indicate any symptoms associated with coronavirus-19. Ebola Screen: No symptoms or risks identified at this time. Initial Sepsis Screen: Does the patient meet any 2 criteria? No. Patient's initial sepsis screen is negative. Does the patient have a suspected source of infection? Yes: Skin breakdown/wound. Risk Assessment: Do you want to hurt yourself or someone else? Patient reports no desire to harm self or others. Onset of symptoms was August 22, 2022. 18:19 Method Of Arrival: Ambulatory ap3 18:19 Acuity: VIDAL 4 ap3 Triage Assessment: 18:22 General: Appears in no apparent distress. Behavior is calm, cooperative, appropriate ap3 for age. Pain: Complains of pain in right lower quadrant. Neuro: Level of Consciousness is awake, alert, obeys commands, Oriented to person, place, time. Respiratory: Airway is patent Respiratory effort is even, unlabored. Injury Description: Burn was sustained 08/24/2022. 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 - Social history:: Smoking status: Patient denies any tobacco usage or history of. Screenin:23 [facility] ED Fall Risk Assessment (Adult) History of falling in the last 3 months, ap3 including since admission No falls in past 3 months (0 pts). Abuse screen: Denies threats or abuse. Nutritional screening: No deficits noted. Tuberculosis screening: No symptoms or risk factors identified. Assessment: 20:42 Derm: Wound noted abdomen and right lower quadrant. kd3 Vital Signs: 18:19 BP 134 / 66; Pulse 63; Resp 17; Temp 98.9; Pulse Ox 100% ; Weight 92.99 kg; Height 5 ap3 ft. 5 in. (165.10 cm); 18:19 Body Mass Index 34.11 (92.99 kg, 165.10 cm) ap3 ED Course: 18:14 Patient arrived in ED. rg4 18:21 Triage completed. ap3 18:23 Arm band placed on right wrist. ap3 18:31 Get Reardon PA is PHCP. [facility] 18:31 Sixto Carroll MD is Attending Physician. [facility] 19:11 Hazel Hebert, RN is Primary Nurse. kd3 20:42 Patient has correct armband on for positive identification. kd3 20:42 No provider procedures requiring assistance completed. Patient did not have IV access kd3 during this emergency room visit. Administered Medications: 19:30 Not Given (med not availablee): Polysporin (bacitracin zinc) Ointment 1 application kd3 Topical bolus Medication: 20:42 VIS not applicable for this client. kd3 Outcome: 20:00 Discharge ordered by . [facility] 20:41 Patient left the ED. kd3 20:42 Discharged to home ambulatory. kd3 20:42 Condition: stable 20:42 Discharge instructions given to patient, Instructed on discharge instructions, follow up and referral plans. medication usage, Demonstrated understanding of instructions, follow-up care, medications, Prescriptions given X 2. Signatures: Get Reardon PA PA jmm Garcia, Rubi rg4 Aracelis Green RN RN ap3 Hazel Hebert, CHRISTIN RN kd3 Corrections: (The following items were deleted from the chart) 19:28 19:24 Polysporin (bacitracin zinc) Ointment 1 application Topical in abdomen kd3 kd3
[2022-09-13 20:51] VITALS: BP 134/66; TEMP 98.9; O2SAT 100
== END 2022-09-13 20:41 | disposition home or self-care (01) ==
LOC: ER 18:08
DX: T21.22XA Burn of second degree of abdominal wall, initial encounter (principal)
CPT/HCPCS: 99282

== ENCOUNTER 2023-05-19 09:04 | Emergency (ER) | payer SELFPAY ==
--- OUTSIDE RECORDS SUMMARY | 2023-05-19 09:07 | XMS REPORT | Continuity of Care Document ---
:1990 Author Organization [facility] t Address [address] [facility] [address] [place] [address] Care Team Providers Name Role Phone JAYSON GARDUNO Primary Care Physician Unavailable BYRON CHAHAL Attending Clinician Unavailable JANET HIGH Attending Clinician Unavailable CARMEN ALONSO Attending Clinician Unavailable Bui_Q_WAG Attending Clinician Unavailable RED MELENDEZ Attending Clinician Unavailable Kristopher Jason DO Attending Clinician [place], [facility] Attending Clinician Unavailable Shannon Wilburn MD Attending Clinician [phone] Antonio Barbour MD Attending Clinician Doctor Unassigned, [place] Attending Clinician Unavailable Jayson Thakur Attending Clinician Bui_Q_WAG Admitting Clinician Unavailable Shannon Wilburn MD Admitting Clinician [phone] Payers Payer Name Policy Type Policy Number Effective Date Expiration Date Remy doran [facility] [id number] 2021 00:00:00 [place] [facility] [id number] 2018 HEALTH 00:00:00 Problems This patient has [...] Start Date Stop Date Source Never Smoker [facility] racluiz Medications Ordered Filled Start Stop Current Ordering Indication Dosage Frequency Signature Comments Components Source Medication Medication Date Date Medication? Clinician (SIG) Name Name mupirocin mupirocin No mupirocin [facility] calcium 2 % calcium 2 % [...] Source BP Diastolic 2020-09-03 00:00:00 85 mm[Hg] [facility] Height 2020-09-03 00:00:00 65 [in_i] [facility] BMI (Body Mass 2020-09-03 00:00:00 43.4 kg/m[facility] BP Systolic 2020-09-03 00:00:00 125 mm[Hg] [facility] Body Weight 2020-09-03 00:00:00 261 [lb_av] [facility] Procedures Procedure Date / Time Performed Performing Clinician Simon ceballos Caesarean Section 2019-05-09 00:00:00 [facility] Caesarean Section 2013-03-30 00:00:00 [facility] Colonoscopy [facility] Plan of Care Planned Activity Planned Date Details Comments Source Instructions [facility] Encounters Start End Encounter Admission Attending Care Care Encounter Source Date/Time Date/Time Type Type Clinicians Facility Department ID 2021-10-11 2021-10-11 Outpatient Yelitza CHAHAL [facility] [id number] Univers 09:00:00 09:00:00 BYRON ity o f [facility] 2021-10-05 2021-10-05 Outpatient R ANILA, [facility] [id number] Univers 09:00:00 09:00:00 JANET tyy o f [facility] 2021-10-04 2021-10-04 Outpatient R TIRSO, [facility] [id number] Univers 08:40:00 08:40:00 BYRON ity o f [facility] 2021-09-28 2021-09-28 Outpatient R GAVIN, [facility] [id number] Univers 14:00:00 14:00:00 CARMEN [facility] 2020-12-30 2020-12-30 Outpatient [facility] [id number] Univers 11:15:00 11:15:00 [facility] 2020-12-26 2020-12-26 Outpatient Bui_Q_WAG VFP VFP [id number] [facility] 06:58:00 06:58:00 [id number] Family Practic e 2020-12-09 2020-12-09 Outpatient R NORA, [facility] [id number] Univers 13:40:00 13:40:00 RED [facility] 2020-11-21 2020-11-21 [facility] [id number] 00:00:00 00:00:00 Outreach [facility] [id number] [facility] [id number] [facility] [id number] 2020-09-03 2020-09-03 Outpatient Bui_Q_WAG VFP VFP [id number] [id number] [facility] 03:37:00 03:37:00 [id number] Family Practic e 2020-09-03 2020-09-03 Portame B VFP [place] - [id number] Village 00:00:00 00:00:00 Raffaele Barreto Famil y ELECTRICAL CONTROLS DESIGNER: 6122 Medical - Pract [facility], [place] [address], ([facility]) [place] [id number] , Ph. 2020-09-02 2020-09-02 Outpatient Bui_Q_WAG VFP [facility] [id number] [facility] 05:27:00 05:27:00 [id number] Family Practic e 2019-09-08 2019-09-08 Emergency E MHBL MHBL [id number] MHBL 15:59:00 15:59:00 2019-05-18 2019-05-18 [facility] [id number] [id number] 14:22:59 15:01:03 Visit [facility] ENGINEERING LEADER [id number] Nurse [facility] [id number] MATERNAL [id number] & CHILD 107 [facility] 2019-05-08 2019-05-10 [facility]IM[facility] 1.2.840.114 [id number] 18:12:00 15:00:00 Encounter suerachaelShannon [id number] [place] [id number] 2019-05-09 2019-05-09 Anesthesia Antonio Barbour 1.2.840.114 [id number] 00:07:00 02:21:00 KAYA [id number] [place] [id number] 2019-05-08 2019-05-08 Orders Doctor YEIMY 1.2.840.114 [id number] 00:00:00 00:00:00 Only Unassigned, KAYA [id number] [place] [facility] [id number] 2019-05-05 2019-05-05 Routine Basil [facility] 1.2.840.114 [id number] 15:36:12 16:03:03 Roshunda R ENGINEERING LEADER [id number] Visit [facility] [id number] MATERNAL [id number] & CHILD 107 [facility] Results This patient has no known results.
[2023-05-19] MEDS ORDERED: MECLIZINE HCL 12.5 MG TAB ONE (09:49)
--- NOTE | 2023-05-19 10:56 | ER ---
Nurse's Notes [facility] Name: Aracelis Pike Age: 32 yrs Sex: Female : 1990 Arrival Date: 05/19/2023 Time: 09:04 Bed 5 Private MD: Diagnosis: Other peripheral vertigo, unspecified ear;Nausea with vomiting, unspecified Presentation: 05/19 09:21 Chief complaint: Patient states: Fell and hit head 2 weeks ago and having recurring jl7 headaches since then, reports dizziness and vomiting this morning. Coronavirus screen: At this time, the client does not indicate any symptoms associated with coronavirus-19. Ebola Screen: No symptoms or risks identified at this time. Initial Sepsis Screen: Does the patient meet any 2 criteria? No. Patient's initial sepsis screen is negative. Does the patient have a suspected source of infection? No. Patient's initial sepsis screen is negative. Risk Assessment: Do you want to hurt yourself or someone else? Patient reports no desire to harm self or others. Onset of symptoms was May 19, 2023. 09:21 Method Of Arrival: Ambulatory [facility] 09:21 Acuity: VIDAL 3 jl7 Triage Assessment: 09:22 Headache History: Denies prior headaches. General: Appears in no apparent distress. jl7 uncomfortable, Behavior is calm, cooperative, appropriate for age. Pain: Denies pain. Complains of pain in headache Pain currently is 0 out of 10 on a pain scale. Pain began 2 weeks ago Also complains of no other associated symptoms. Neuro: Level of Consciousness is awake, alert, obeys commands, Oriented to person, place, time, situation, Moves all extremities. Full function Gait is steady, Speech is normal. GI: Reports nausea, vomiting. 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 - Social history:: Smoking status: Patient denies any tobacco usage or history of. Patient uses street drugs, marijuana. Screenin:01 [facility] ED Fall Risk Assessment (Adult) History of falling in the last 3 months, ko1 including since admission No falls in past 3 months (0 pts) Confusion or Disorientation No (0 pts) Intoxicated or Sedated No (0 pts) Impaired Gait No (0 pts) Mobility Assist Device Used No (0 pt) Altered Elimination No (0 pt) Score/Fall Risk Level 0 - 2 = Low Risk Oriented to surroundings, Maintained a safe environment, Educated pt \T\ family on fall prevention, incl call for assistance when getting out of bed, Assessed \T\ reinforced patient's understanding of fall precautions, Provided non-skid footwear, Hourly rounding (assess needs \T\ fall precautionary measures) done, Used ambulatory aids as needed (educated on \T\ assisted with), Used gait belt as appropriate. Abuse screen: Denies threats or abuse. Denies injuries from another. Nutritional screening: No deficits noted. Tuberculosis screening: No symptoms or risk factors identified. Assessment: 10:01 General: Appears in no apparent distress. comfortable, Behavior is calm, cooperative, ko1 appropriate for age. Pain: Complains of pain in top of head and forehead. Neuro: No deficits noted. Cardiovascular: Reports lightheadedness. Respiratory: No deficits noted. GI: Reports vomiting, since this morning x 1. : No deficits noted. EENT: No deficits noted. Derm: No deficits noted. Musculoskeletal: No deficits noted. Vital Signs: 09:21 BP 114 / 75; Pulse 60; Resp 15; Temp 97.9; Pulse Ox 100% ; Weight 84.37 kg; Height 5 jl7 ft. 5 in. ; Pain 0/10; 10:01 BP 96 / 65; Pulse 55; Resp 18; Pulse Ox 100% ; ko1 11:17 BP 117 / 71; Pulse 58; Resp 16; Pulse Ox 99% ; cp4 09:21 Body Mass Index 30.95 (84.37 kg, 165.1 cm) jl7 09:21 Pain Scale: Adult jl7 NIH Stroke Scale Scores: 09:31 NIHSS Score: 0 ms3 ED Course: 09:06 Patient arrived in ED. rg4 09:10 Morgan Durbin DO is Attending Physician. ms3 09:22 Triage completed. jl7 09:22 Arm band placed on right wrist. jl7 09:26 Noemy Leo, RN is Primary Nurse. ko1 10:01 Patient has correct armband on for positive identification. Placed in gown. Bed in low ko1 position. Call light in reach. Side rails up X 1. Provided Education on: NA. Pulse ox on. NIBP on. Door closed. Noise minimized. Lights dimmed. Warm blanket given. 10:01 No provider procedures requiring assistance completed. Patient did not have IV access ko1 during this emergency room visit. 10:54 Osmar Martinez DO is Referral Physician. ms3 Administered Medications: 09:40 Drug: Meclizine PO 50 mg PO once Route: PO; ld1 Medication: 11:17 VIS not applicable for this client. cp4 Outcome: 10:54 Discharge ordered by MD. ms3 11:17 Discharged to home ambulatory, cp4 11:17 Condition: stable 11:17 Discharge instructions given to patient, Instructed on discharge instructions, follow up and referral plans. medication usage, Demonstrated understanding of instructions, follow-up care, medications, Prescriptions given X 1, 11:23 Patient left the ED. cp4 NIH Stroke Scale - NIH Stroke Score Date: 05/19/2023 Time: 09:31 Total Score = 0 10. Dysarthria (speech clarity - read or repeat words) - 0(Normal) 11. Extinction and Inattention (visual/tactile/auditory/spatial/personal) - 0(No abnormality) 1a. Level of Consciousness (LOC) - 0(Alert) 1b. Level of Consciousness (LOC) (Month \T\ Age) - 0(Both) 1c. LOC Commands (Open \T\ Closes Eyes/Copier Repair Technician) - 0(Both) 2. Best Gaze (Lateral Gaze Paresis) - 0(Normal) 3. Visual Field Loss - 0(No visual loss) 4. Facial Palsy - 0(Normal) 5a. Left Arm: Motor (10-second hold) - 0(No drift) 5b. Right Arm: Motor (10-second hold) - 0(No drift) 6a. Left Leg: Motor (5-second hold - always test supine) - 0(No drift) 6b. Right Leg: Motor (5-second hold - always test supine) - 0(No drift) 7. Limb Ataxia (finger/nose \T\ heel/altamirano - test with eyes open) - 0(Absent) 8. Sensory Loss (pinprick arms/legs/face) - 0(Normal) 9. Best Language: Aphasia (description/naming/reading) - 0(No aphasia) Initials: ms3 Signatures: Lisa Arrieta rg4 Aris Carvajal, RN RN jl7 Morgan Durbin, DO BLEVINS ms3 Carolyne Durbin RN RN ld1 Noemy Leo RN RN ko1 Medina Montero 4
--- NOTE | 2023-05-19 10:56 | EDPHYS ---
Physician Documentation [facility] Name: Aracelis Pike Age: 32 yrs Sex: Female : 1990 Arrival Date: 05/19/2023 Time: 09:04 Bed 5 Private MD: ED Physician Morgan Durbin HPI: 05/19 09:31 This 32 yrs old Female presents to ER via Ambulatory with complaints of Headache, ms3 Vertigo, Vomiting. 09:31 32-year-old female with past medical history of depression, migraines presents for ms3 dizziness that began on waking up this morning. Patient denies pain at this time. Patient states she did fall and hit her head 2 weeks ago on the bathtub and has had intermittent headaches since that time. Patient states her symptoms become worse with movement of her head. Patient states being still alleviates her symptoms. Patient notes she has had vomiting due to the dizziness.. 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 - Social history:: Smoking status: Patient denies any tobacco usage or history of. Patient uses street drugs, marijuana. ROS: 09:31 Constitutional: Negative for fever, and chills. Neck: Negative for injury, pain, and ms3 swelling, Cardiovascular: Negative for chest pain, and palpitations. Respiratory: Negative for shortness of breath, cough, wheezing, and pleuritic chest pain, Abdomen/GI: Negative for abdominal pain, nausea, vomiting, diarrhea, and constipation, MS/Extremity: Negative for injury and deformity, Skin: Negative for injury, rash, and discoloration, :31 Neuro: Positive for dizziness, :31 All other systems are negative, Exam: :31 Constitutional: This is a well developed, well nourished patient who is awake, alert, ms3 and in no acute distress. Head/Face: Normocephalic, atraumatic. Neck: Trachea midline, no cervical lymphadenopathy. Supple, full range of motion without nuchal rigidity, or vertebral point tenderness. No Meningismus. Chest/axilla: Normal chest wall appearance and motion. Nontender with no deformity. Cardiovascular: Regular rate and rhythm with a normal S1 and S2. No gallops, murmurs, or rubs. Normal PMI, no JVD. No pulse deficits. Respiratory: Lungs have equal breath sounds bilaterally, clear to auscultation and percussion. No rales, rhonchi or wheezes noted. No increased work of breathing, no retractions or nasal flaring. Abdomen/GI: Soft, non-tender, with normal bowel sounds. No distension or tympany. No guarding or rebound. No evidence of tenderness throughout. Skin: Warm, dry with normal turgor. Normal color with no rashes, no lesions, and no evidence of cellulitis. MS/ Extremity: Pulses equal, no cyanosis. Neurovascular intact. Full, normal range of motion. 09:31 Neuro: Orientation: is normal, Mentation: is normal, Cranial nerves: CN I not tested, CN II- XII are normal as tested, Cerebellar function: normal finger to nose testing, Motor: is normal, Sensation: is normal, no obvious gross deficits, Radha-Hallpike positive to the right, Vital Signs: 09:21 BP 114 / 75; Pulse 60; Resp 15; Temp 97.9; Pulse Ox 100% ; Weight 84.37 kg; Height 5 jl7 ft. 5 in. ; Pain 0/10; 10:01 BP 96 / 65; Pulse 55; Resp 18; Pulse Ox 100% ; ko1 11:17 BP 117 / 71; Pulse 58; Resp 16; Pulse Ox 99% ; cp4 09:21 Body Mass Index 30.95 (84.37 kg, 165.1 cm) [facility] 09:21 Pain Scale: Adult [facility] NIH Stroke Scale Scores: 09:31 NIHSS Score: 0 ms3 MDM: 09:30 Patient medically screened. ms3 10:57 Differential diagnosis: BPV vs OM vs CVA. Data reviewed: vital signs, nurses notes, and ms3 as a result, I will discharge patient. I considered the following discharge prescriptions or medication management in the emergency department Medications were administered in the Emergency Department. See MAR. Test considered but Not performed: CT: NIH= 0. No focal neuro deficits. Patient's symptoms resolved after Meclizine. Counseling: I had a detailed discussion with the patient and/or guardian regarding the historical points, exam findings, and any diagnostic results supporting the discharge/admit diagnosis, the need for outpatient follow up, to return to the emergency department if symptoms worsen or persist or if there are any questions or concerns that arise at home. Special discussion: I discussed with the patient/guardian in detail that at this point there is no indication for admission to the hospital. It is understood, however, that if the symptoms persist or worsen the patient needs to return immediately for re-evaluation. ED course: On reevaluation patient's symptoms resolved, patient is alert and orient x4, no weakness, numbness, focal neurologic deficits. Patient to follow-up with primary care physician in 2 to 3 days. Patient understands and agrees with plan. All questions were answered. Return precautions discussed include worsening symptoms, or any other concerns. Administered Medications: 09:40 Drug: Meclizine PO 50 mg PO once Route: PO; ld1 Disposition Summary: 05/19/23 10:54 Discharge Ordered Notes: Location: Home ms3 Condition: Stable ms3 Diagnosis - Other peripheral vertigo, unspecified ear ms3 - Nausea with vomiting, unspecified ms3 Followup: ms3 - With: Osmar Martinez DO - When: 2 - 3 days - Reason: Recheck today's complaints Discharge Instructions: - Discharge Summary Sheet ms3 - Benign Positional Vertigo ms3 Forms: - Medication Reconciliation Form ms3 - Thank You Letter ms3 - Antibiotic Education ms3 - Prescription Opioid Use ms3 - Patient Portal Instructions ms3 - Leadership Thank You Letter ms3 Prescriptions: - Meclizine 25 mg Oral Tablet - take 1 tablet by ORAL route every 8 hours As needed; 30 tablet; Refills: 0, ms3 Product Selection Permitted NIH Stroke Scale - NIH Stroke Score Date: 05/19/2023 Time: 09:31 Total Score = 0 10. Dysarthria (speech clarity - read or repeat words) - 0(Normal) 11. Extinction and Inattention (visual/tactile/auditory/spatial/personal) - 0(No abnormality) 1a. Level of Consciousness (LOC) - 0(Alert) 1b. Level of Consciousness (LOC) (Month \T\ Age) - 0(Both) 1c. LOC Commands (Open \T\ Closes Eyes/Manager Organizational) - 0(Both) 2. Best Gaze (Lateral Gaze Paresis) - 0(Normal) 3. Visual Field Loss - 0(No visual loss) 4. Facial Palsy - 0(Normal) 5a. Left Arm: Motor (10-second hold) - 0(No drift) 5b. Right Arm: Motor (10-second hold) - 0(No drift) 6a. Left Leg: Motor (5-second hold - always test supine) - 0(No drift) 6b. Right Leg: Motor (5-second hold - always test supine) - 0(No drift) 7. Limb Ataxia (finger/nose \T\ heel/altamirano - test with eyes open) - 0(Absent) 8. Sensory Loss (pinprick arms/legs/face) - 0(Normal) 9. Best Language: Aphasia (description/naming/reading) - 0(No aphasia) Initials: ms3 Signatures: Aris Carvajal RN RN jl7 Morgan Durbin DO DO ms3 Carolyne Durbin RN RN ld1
[2023-05-19 11:29] VITALS: TEMP 97.9
[2023-05-19 11:32] VITALS: BP 117/71; O2SAT 99
== END 2023-05-19 11:23 | disposition home or self-care (01) ==
LOC: ER 09:04
DX: H81.399 Other peripheral vertigo, unspecified ear (principal); R11.2 Nausea with vomiting, unspecified; Z88.8 Allergy status to other drugs, medicaments and biological substances; Z91.048 Other nonmedicinal substance allergy status
CPT/HCPCS: J8597

== ENCOUNTER → 2023-09-29 | Emergency (ER) | payer SELFPAY ==
[~2023-09-29] MED LIST: POTASSIUM 25 MEQ EFFERV TAB ONE
--- OUTSIDE RECORDS SUMMARY | 2023-09-29 20:14 | XMS REPORT | Continuity of Care Document ---
Author Name Unknown Address [address] [place] [address] [facility] thconnect Address [address] [place] [address] Care Team Providers Care Industrial Design Intern Name Role Phone Jayson Thakur Primary Care Physician Un available BYRON CHAHAL Attending Clinician Unavailable Doctor Unassigned, Tiro Attending Clinician U JANET William Attending Clinician Unavail able CARMEN ALONSO Attending Clinician Unavailable Bui_Q_WAG Attending Clinician Unavailable RED MELENDEZ Attending Clinician Unavailable Kristopher Jason DO Attending Clinician [phone] Visit, [facility] Nurse Attending Clinician Unava ilable Shannon Wilburn MD Attending Clinician [phone] Antonio Barbour MD Attending Clinician [phone] Jayson Thakur Attending Clinician + [phone] Bui_Q_WAG Admitting Clinician Unavailable Shannon Wilburn MD Admitting Clinician [phone] Payers Payer Name Policy Type Policy Number Effective Date Expirati on Date Source [facility] [id number] 2018 00:00:00 Problems Condition Name Condition Details Condition Category Status Onset Date Resolution Date Last Treatment Date Treating Clinician Comments Source Encounter for immunizati on Encounter for immunizati on Disease Active 2018-09 022 00:00: 00 [facility] Encounter for surveillan ce of contracept doris, unspecifie d contracept sanjay Encounter for surveillan ce of contracept doris, unspecifie d contracept sanjay Disease Active 2018-09 022 00:00: 00 [facility] History of bilateral tubal ligation History of bilateral tubal ligation Disease Active 2018-09 022 00:00: 00 [facility] Papanicola ou smear of cervix with low grade squamous intraepith elial lesion (LGSIL) Papanicola ou smear of cervix with low grade squamous intraepith elial lesion (LGSIL) Disease Active 2018-09 022 00:00: 00 [facility] BMI 39.0-39.9, adult BMI 39.0-39.9, adult Disease Active 2018-09 0-16 00:00: 00 [facility] Knee injury, right, initial encounter Knee injury, right, initial encounter Disease Active 7-30 00:00: 00 [facility] Previous delivery affecting , antepartum Previous delivery affecting , antepartum Disease Active 5-02 00:00: 00 [facility] Hypertensi on, unspecifie d type Hypertensi on, unspecifie d type Disease Active 2-12 00:00: 00 [facility] Morbid obesity Morbid obesity Disease Active 2015-09 00:00: 00 [facility] Allergies, Adverse Reactions, Alerts Allergy Name Allergy Type Status Severity Reaction(s) Onset Date Inactive Date Treating Clinician Comments Source Prometha zine Hcl Propensi ty to adverse reaction s Active Rash 2015-09 00:00: 00 [facility] PROMETHA ZINE HCL DRUG INGREDI Active Rash 2015-09 00:00: 00 [facility] Phenerga n Allergy to substanc e Active Moderate to severe Itching 620 00:00: 00 [facility] Social History Social Habit Start Date Stop Date Quantity Comments Source [facility] of Social function 2020-04-05 00:00:00 2020-04-05 00:00:00 [facility] Alcohol intake 2019-06-22 00:00:00 2019-06-22 00:00:00 Current non-drinker of alcohol (finding) [facility] Tobacco use and exposure 2018-09-24 00:00:00 2018-09-24 00:00:00 Smokeless tobacco non-user [facility] Sex Assigned At 1990 00:00:00 1990 00:00:00 [facility] Smoking Status Start Date Stop Date Source Never Smoker [facility] Medications Ordered Medication Name Filled Medication Name Start Date Stop Date Current Medication? Ordering Clinician Indication Dosage Frequency Signature (SIG) Comments Components Source mupirocin calcium 2 % topical cream APPLY A SMALL AMOUNT TO THE AFFECTED AREA BY TOPICAL ROUTE 3 TIMES PER DAY FOR 10 DAYS mupirocin calcium 2 % topical cream APPLY A SMALL AMOUNT TO THE AFFECTED AREA BY TOPICAL ROUTE 3 TIMES PER DAY FOR 10 DAYS No mupirocin calcium 2 % topical cream APPLY A SMALL AMOUNT TO THE AFFECTED AREA BY TOPICAL ROUTE 3 TIMES PER DAY FOR 10 DAYS [facility] Pract[facility] e tramadol 50 mg tablet Take 1 tablet every 6 hours by oral route as needed for 3 days. tramadol 50 mg tablet Take 1 tablet every 6 hours by oral route as needed for 3 days. No 1 Q6H tramadol 50 mg tablet Take 1 tablet every 6 hours by oral route as needed for 3 days. [facility] e Immunizations Ordered Immunization Name Filled Immunization Name Date Status Comments Source TDAP Unknown Completed [facility] Influenza Virus Vaccine Quad .5 mL IM 6+ MO (FLUZONE/FLULAVAL/FL UARIX) Unknown Completed [facility] SARS-COV-2 COVID-19 PFIZER VACCINE Unknown Completed [facility] Vital Signs Vital Name Observation Time Observation Value Comments S ource BP Diastolic 2020-09-03 00:00:00 85 mm[Hg] Jayesh lewis [facility] Height 2020-09-03 00:00:00 65 [in_i] Bryant ge [facility] BMI (Body Mass Index) 2020-09-03 00:00:00 43.4 kg/m2 [facility] BP Systolic 2020-09-03 00:00:00 125 mm[Hg] Vill wali [facility] Body Weight 2020-09-03 00:00:00 261 [lb_av] [facility] Procedures Procedure Date / Time Performed Performing Clinicia n Source Caesarean Section 2019-05-09 00:00:00 [facility] Caesarean Section 2013-03-30 00:00:00 [facility] Colonoscopy [facility] Plan of Care Planned Activity Planned Date Details Comments Source Instructions [facility] Encounters Start Date/Time End Date/Time Encounter Type Admission Type Attending Clinicians Care Facility Care Department Encounter ID Source 2021-10-11 09:00:00 2021-10-11 09:00:00 Outpatient R NIKOLEROSIECROWBYRON [facility] [id number] [facility] 2021-10-10 00:00:00 2021-10-10 00:00:00 Patient Secure Msg Doctor Unassigned, Tiro [facility] [id number] [facility] 2021-10-05 09:00:00 2021-10-05 09:00:00 Outpatient R JANET HIGH [facility] [id number] [facility] 2021-10-04 08:40:00 2021-10-04 08:40:00 Outpatient R MONICA CHAHALYERE [facility] [id number] [facility] 2021-09-28 14:00:00 2021-09-28 14:00:00 Outpatient CARMEN EDUARDO [facility] [id number] [facility] 2020-12-30 11:15:00 2020-12-30 11:15:00 Outpatient [facility] [id number] [facility] 2020-12-26 06:58:00 2020-12-26 06:58:00 Outpatient Bui_Q_WAG VFP VFP [id number] [facility] e 2020-12-09 13:40:00 2020-12-09 13:40:00 Outpatient RED CESPEDES [facility] [id number] [facility] 2020-11-21 00:00:00 2020-11-21 00:00:00 Patient Outreach Eren Kristopherjazmín Conrad [facility] 1..840.114 [id number] 2020-09-03 03:37:00 2020-09-03 03:37:00 Outpatient Bui_Q_WAG VFP [facility] [id number] [facility] 2020-09-03 00:00:00 2020-09-03 00:00:00 Rahel Barreto, 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 P MT - [facility] - _[facility] [id number] [facility] 2020-09-02 05:27:00 2020-09-02 05:27:00 Outpatient Bui_Q_WAG [facility] [id number] [facility] 2019-05-18 14:22:59 2019-05-18 15:01:03 Nurse Visit Visit, [facility] Nurse [facility] 1..840.114 [id number] 2019-05-08 18:12:00 2019-05-10 15:00:00 Hospital Encounter Shannon Metcalf [facility] 1..840.114 [id number] 2019-05-09 00:07:00 2019-05-09 02:21:00 Anesthesia Antonio Barbour [facility] 1..840.114 [id number] 2019-05-08 00:00:00 2019-05-08 00:00:00 Orders Only Doctor Unassigned, Tiro [facility] 1..840.114 [id number] [id number] 2019-05-05 15:36:12 2019-05-05 16:03:03 Routine Visit Jayson Gracia [facility] [id number]
[2023-09-29 21:54] LABS: Specific Gravity 1.007 (1.005-1.030)
[2023-09-29 22:10] LABS: Specific Gravity 1.007 (1.005-1.030); Urine Bacteria <20 /HPF (<20); Urine Bilirubin NEGATIVE (Negative); Urine Blood 1+ (Negative); Urine Clarity Clear (Clear); Urine Color Colorless (Yellow); Urine Glucose NEGATIVE (Negative); Urine Mucus Slight /HPF (None Seen); Urine Protein NEGATIVE (Negative); Urine RBC <5 /HPF (None Seen); Urine Urobilinogen Normal (Normal); Urine pH 6.5 (5.0-7.0)
[2023-09-29 23:36] LABS: Absolute Lymphocytes (CBC) 1.9 K/uL (0.7-4.9); Hematocrit 34.3 % (36.0-45.0); Lymphocytes % 31.3 % (15.3-44.8); MCV 84.5 fL (80-100); MPV 8.8 fL (7.6-11.3); Platelets 234 thou/uL (152-406); RBC Red Blood Cell Count 4.06 M/uL (3.86-4.86)
[2023-09-29 23:46] LABS: BUN Blood Urea Nitrogen 12 mg/dL (7-18); Bicarbonate 25 mEq/L (21-32); Glomerular Filtration Rate 88 ml/min (=/>90); Glucose Level 91 mg/dL (74-106); Potassium 3.4 mEq/L (3.5-5.1); Sodium Level 139 mEq/L (136-145)
[2023-09-29 23:48] LABS: HCG, Quantitative < 1 mIU/mL (1-3)
--- NOTE | 2023-09-30 01:23 | ER ---
Nurse's Notes [facility] Name: Aracelis Pike Age: 33 yrs Sex: Female : 1990 Arrival Date: 09/29/2023 Time: 20:10 Bed 14 Private MD: Diagnosis: Abnormal uterine and vaginal bleeding, unspecified Presentation: 09/29 20:34 Chief complaint: Patient states: Pt c/o nausea, vomiting, and abdominal pressure since tl4 last night. Pt states she has her period now but it is heavier than normal flow and she is passing clots. Pt states she is changing her super tampons q 30 minutes. Pt states she had a tubal ligation in 2018. Pt is concerned she is having an ectopic . Coronavirus screen: Vaccine status: Patient reports receiving the 2nd dose of the covid vaccine. At this time, the client does not indicate any symptoms associated with coronavirus-19. Ebola Screen: Patient negative for fever greater than or equal to 101.5 degrees Fahrenheit, and additional compatible Ebola Virus Disease symptoms Patient denies exposure to infectious person. Patient denies travel to an Ebola-affected area in the 21 days before illness onset. No symptoms or risks identified at this time. Initial Sepsis Screen: Does the patient meet any 2 criteria? No. Patient's initial sepsis screen is negative. Does the patient have a suspected source of infection? No. Patient's initial sepsis screen is negative. Risk Assessment: Do you want to hurt yourself or someone else? Patient reports no desire to harm self or others. Onset of symptoms was September 28, 2023. 20:34 Method Of Arrival: Ambulatory tl4 20:34 Acuity: VIDAL 3 tl4 Triage Assessment: 20:39 General: Appears in no apparent distress. Behavior is calm, cooperative. Pain: tl4 Complains of pain in abdomen. EENT: No deficits noted. No signs and/or symptoms were reported regarding the EENT system. Neuro: No deficits noted. Cardiovascular: No deficits noted. Denies chest pain, diaphoresis, fatigue, lightheadedness, nausea, palpitations. Respiratory: No deficits noted. Denies cough, shortness of breath. GI: No deficits noted. No signs and/or symptoms were reported involving the gastrointestinal system. : Reports vaginal bleeding that is with clots, heavy flow. Historical: - Allergies: 20:37 Adhesives; tl4 20:37 Phenergan; tl4 - Home Meds: 20:37 Lexapro 10 mg oral tablet 1 tab daily [Active]; Wellbutrin XL 350 mg Oral 1 tab daily tl4 [Active]; - PMHx: 20:37 depressive disorder; Migraines; tl4 - PSHx: 20:37 section; tl4 - Immunization history:: Adult Immunizations unknown. - Social history:: Smoking status: Patient denies any tobacco usage or history of. Screenin:16 [facility] ED Fall Risk Assessment (Adult) History of falling in the last 3 months, ha1 including since admission No falls in past 3 months (0 pts) Confusion or Disorientation No (0 pts) Intoxicated or Sedated No (0 pts) Impaired Gait No (0 pts) Mobility Assist Device Used No (0 pt) Altered Elimination No (0 pt) Score/Fall Risk Level 0 - 2 = Low Risk Oriented to surroundings, Maintained a safe environment, Educated pt \T\ family on fall prevention, incl call for assistance when getting out of bed, Hourly rounding (assess needs \T\ fall precautionary measures) done. Abuse screen: Denies threats or abuse. Denies injuries from another. Nutritional screening: No deficits noted. Tuberculosis screening: No symptoms or risk factors identified. Assessment: 22:35 General: Appears uncomfortable, Behavior is calm, cooperative. Pain: Complains of pain ha1 in pelvis Pain does not radiate. Pain currently is 5 out of 10 on a pain scale. Quality of pain is described as crampy, Pain began 1 day ago. Is continuous. Neuro: Level of Consciousness is awake, alert, obeys commands, Oriented to person, place, time, situation. Cardiovascular: Capillary refill < 3 seconds Patient's skin is warm and dry. Respiratory: Airway is patent Respiratory effort is even, unlabored, Respiratory pattern is regular, symmetrical. GI: Abdomen is flat, non-distended. : Urine is clear, Reports vaginal bleeding that is bright red, with clots. Derm: Skin is pink, warm \T\ dry. Musculoskeletal: Circulation, motion, and sensation intact. Range of motion: intact in all extremities. 23:30 Reassessment: Patient and/or family updated on plan of care and expected duration. Pain ha1 level reassessed. Patient is alert, oriented x 3, equal unlabored respirations, skin warm/dry/pink. 09/30 00:25 Reassessment: Patient and/or family updated on plan of care and expected duration. Pain ha1 level reassessed. Patient is alert, oriented x 3, equal unlabored respirations, skin warm/dry/pink. 01:25 Reassessment: Patient and/or family updated on plan of care and expected duration. Pain ha1 level reassessed. Patient is alert, oriented x 3, equal unlabored respirations, skin warm/dry/pink. Vital Signs: 09/29 20:34 BP 138 / 82; Pulse 71; Resp 16; Temp 98.5(O); Pulse Ox 100% on R/A; Weight 84.37 kg; tl4 Height 5 ft. 5 in. ; Pain 4/10; 23:16 BP 108 / 80; Pulse 68; Resp 17 S; Pulse Ox 100% on R/A; ha1 23:50 BP 110 / 74; Pulse 62; Resp 17 S; Pulse Ox 100% on R/A; ha1 09/30 00:30 BP 112 / 74; Pulse 61; Resp 17 S; Pulse Ox 100% on R/A; ha1 01:38 BP 112 / 78; Pulse 65; Resp 17 S; Pulse Ox 100% on R/A; ha1 09/29 20:34 Body Mass Index 30.95 (84.37 kg, 165.1 cm) tl4 09/29 20:34 Pain Scale: Adult tl4 ED Course: 09/29 20:17 Patient arrived in ED. gm2 20:17 Sixto Ramírez PA is PHCP. cp 20:17 Leroy Anderson MD is Attending Physician. cp 20:37 Triage completed. tl4 20:39 Arm band placed on right wrist. tl4 21:09 Test, Urine Sent. tl4 21:09 Urinalysis w/ reflexes Sent. tl4 21:15 Quantitative Hcg Sent. cm10 22:30 Patient has correct armband on for positive identification. Placed in gown. Bed in low ha1 position. Call light in reach. Side rails up X 1. 22:35 Inserted saline lock: 20 gauge in left antecubital area, using aseptic technique. Blood ha1 collected. 23:00 Paula, Monique, RN is Primary Nurse. ha1 23:13 Abo/rh Typing Sent. ha1 23:14 Basic Metabolic Panel Sent. ha1 23:14 CBC with Diff Sent. ha1 23:44 US Transvaginal Study (Probe) In Process Unspecified. EDMS 09/30 01:38 No provider procedures requiring assistance completed. IV discontinued, intact, ha1 bleeding controlled, No redness/swelling at site. Pressure dressing applied. 01:39 Provided Education on: follow up . ha1 Administered Medications: :25 Drug: Potassium PO Effervescent Tablet 25 mEq PO once; dissolve in 4 ounces of water or ha1 juice Route: PO; 01:40 Follow up: Response: No adverse reaction ha1 Medication: 09/29 23:17 VIS not applicable for this client. ha1 Outcome: 09/30 01:22 Discharge ordered by . mu 01:38 Discharged to home ambulatory, with family, ha1 01:38 Condition: stable 01:38 Discharge instructions given to patient, family, Instructed on discharge instructions, follow up and referral plans. Demonstrated understanding of instructions, follow-up care, 01:39 Patient left the ED. ha1 Signatures: Dispatcher [employer] EDMD Sixto Ramírez PA PA cp Ayala, Heidy, RN RN ha1 Dena Olivo RN RN cm10 Carolina Oreilly 2 Wolf Harmon 4
--- NOTE | 2023-09-30 01:23 | EDPHYS ---
Physician Documentation [facility] Name: Aracelis Pike Age: 33 yrs Sex: Female : 1990 Arrival Date: 09/29/2023 Time: 20:10 Bed 14 Private MD: ED Physician Leroy Anderson HPI: 09/29 21:00 This 33 yrs old Female presents to ER via Ambulatory with complaints of Vaginal cp Bleeding, pt states she thinks she may have a etopic preg.. 21:00 The patient presents with vaginal bleeding that is heavy, with clots. cp 21:00 Onset: The symptoms/episode began/occurred last night. Associated signs and symptoms: cp Pertinent positives: nausea, vomiting, abdominal pressure. 21:00 Severity of symptoms: in the emergency department the symptoms are unchanged, despite cp home interventions. The patient's method of control includes tubal ligation. Patient concerned about possible . Historical: - Allergies: 20:37 Adhesives; tl4 20:37 Phenergan; tl4 - Home Meds: 20:37 Lexapro 10 mg oral tablet 1 tab daily [Active]; Wellbutrin XL 350 mg Oral 1 tab daily tl4 [Active]; - PMHx: 20:37 depressive disorder; Migraines; tl4 - PSHx: 20:37 section; tl4 - Immunization history:: Adult Immunizations unknown. - Social history:: Smoking status: Patient denies any tobacco usage or history of. ROS: 21:05 Constitutional: Negative for body aches, chills, fever, poor PO intake, cp 21:05 Eyes: Negative for injury, pain, redness, and discharge, cp 21:05 ENT: Negative for drainage from ear(s), ear pain, sore throat, difficulty swallowing, difficulty handling secretions, 21:05 Cardiovascular: Negative for chest pain, palpitations, 21:05 Respiratory: Negative for cough, shortness of breath, wheezing, 21:05 Abdomen/GI: Positive for nausea, vomiting, abdominal pressure, Negative for diarrhea, constipation, 21:05 : Negative for urinary symptoms, vaginal bleeding, 21:05 Neuro: Negative for altered mental status, dizziness, headache, syncope, near syncope, weakness, 21:05 All other systems are negative, Exam: 21:10 Constitutional: The patient appears in no acute distress, alert, awake, non-toxic, well cp developed, well nourished, 21:10 Head/Face: Normocephalic, atraumatic. cp 21:10 Eyes: Periorbital structures: appear normal, Conjunctiva: normal, no exudate, no injection, Lids and lashes: appear normal, bilaterally, 21:10 ENT: External ear(s): are unremarkable, Nose: is normal, Mouth: Lips: moist, Oral mucosa: pink and intact, moist, Posterior pharynx: Airway: no evidence of obstruction, patent, 21:10 Neck: ROM/movement: is normal, is supple, without pain, no range of motions limitations, 21:10 Chest/axilla: Inspection: normal, 21:10 Cardiovascular: Rate: normal, Rhythm: regular, 21:10 Respiratory: the patient does not display signs of respiratory distress, Respirations: normal, no use of accessory muscles, no retractions, labored breathing, is not present, Breath sounds: are clear throughout, no decreased breath sounds, no stridor, no wheezing, 21:10 Abdomen/GI: Inspection: abdomen appears normal, Bowel sounds: active, all quadrants, Palpation: abdomen is soft and non-tender, in all quadrants, 21:10 Back: pain, is absent, ROM is normal, CVA tenderness, is absent, 21:10 Neuro: Orientation: to person, place \T\ time. Mentation: is normal, Motor: moves all fours, strength is normal, Vital Signs: 20:34 BP 138 / 82; Pulse 71; Resp 16; Temp 98.5(O); Pulse Ox 100% on R/A; Weight 84.37 kg; tl4 Height 5 ft. 5 in. ; Pain 4/10; 23:16 BP 108 / 80; Pulse 68; Resp 17 S; Pulse Ox 100% on R/A; ha1 23:50 BP 110 / 74; Pulse 62; Resp 17 S; Pulse Ox 100% on R/A; ha1 09/30 00:30 BP 112 / 74; Pulse 61; Resp 17 S; Pulse Ox 100% on R/A; ha1 01:38 BP 112 / 78; Pulse 65; Resp 17 S; Pulse Ox 100% on R/A; ha1 09/29 20:34 Body Mass Index 30.95 (84.37 kg, 165.1 cm) tl4 09/29 20:34 Pain Scale: Adult tl4 MDM: 09/29 20:37 Patient medically screened. 09/30 01:22 Data reviewed: vital signs, nurses notes, lab test result(s), radiologic studies, cp ultrasound. 01:22 Differential diagnosis: ectopic , menometrorrhagia, molar preganancy, urinary cp tract infection, vaginosis. Counseling: I had a detailed discussion with the patient and/or guardian regarding the historical points, exam findings, and any diagnostic results supporting the discharge/admit diagnosis, lab results, radiology results, to return to the emergency department if symptoms worsen or persist or if there are any questions or concerns that arise at home. Response to treatment: the patient's symptoms have markedly improved after treatment, and as a result, I will discharge patient. 09/29 20:42 Order name: Abo/rh Typing; Complete Time: 00:09 09/30 00:09 Interpretation: Reviewed. 09/29 20:42 Order name: Basic Metabolic Panel; Complete Time: 00:03 09/30 00:03 Interpretation: Normal except: GFR 88; CL 108; K 3.4. 09/29 20:42 Order name: CBC with Diff; Complete Time: 23:48 09/29 23:48 Interpretation: Normal except: HGB 11.3; HCT 34.3; RDW 15.4; EOSINOPHIL % 5.1. 09/29 20:42 Order name: Test, Urine; Complete Time: 22:56 09/29 20:42 Order name: Quantitative Hcg; Complete Time: 00:03 09/29 20:42 Order name: Urinalysis w/ reflexes; Complete Time: 22:56 09/29 22:57 Order name: US Transvaginal Study (Probe) 09/29 20:42 Order name: IV Saline Lock; Complete Time: 23:13 09/29 20:42 Order name: Labs collected and sent; Complete Time: 23:13 09/29 20:42 Order name: NPO; Complete Time: 23:13 cp Administered Medications: :25 Drug: Potassium PO Effervescent Tablet 25 mEq PO once; dissolve in 4 ounces of water or ha1 juice Route: PO; :40 Follow up: Response: No adverse reaction ha1 Disposition: 20:13 Co-signature as Attending Physician, Leroy Anderson MD I agree with the assessment sp4 and plan of care. I reviewed the patient's care provided by the Advanced Practice Provider and agree with the diagnosis and treatment plan. Disposition Summary: 09/30/23 01:22 Discharge Ordered Notes: Location: Home cp Problem: new cp Symptoms: have improved cp Condition: Stable cp Diagnosis - Abnormal uterine and vaginal bleeding, unspecified cp Followup: cp - With: Private Physician - When: 1 week - Reason: Recheck today's complaints Discharge Instructions: - Discharge Summary Sheet cp - Abnormal Uterine Bleeding cp - Dysfunctional Uterine Bleeding cp Forms: - Medication Reconciliation Form cp - Thank You Letter cp - Antibiotic Education cp - Prescription Opioid Use cp - Patient Portal Instructions cp - Leadership Thank You Letter cp Prescriptions: - Ibuprofen 800 mg Oral Tablet - take 1 tablet ORAL route every 8 hours As needed take with food; 30 tablet; cp Refills: 0, Product Selection Permitted Signatures: Dispatcher [employer] EDMS Sixto aRmírez PA PA cp Ayala, Heidy, RN RN ha1 Leroy Anderson MD MD sp4 Log[employer] saldana tl4
[2023-09-30 06:49] VITALS: TEMP 98.5; O2SAT 100
[2023-09-30 07:06] VITALS: BP 112/78
--- NOTE | 2023-09-30 17:22 | RAD REPORT ---
EXAM DESCRIPTION: US - Transvaginal Study Probe - 09/29/2023 11:42 pm CLINICAL HISTORY: 33 years, Female, VAGINAL BLEEDING COMPARISON: None TECHNIQUE: Multiple transvaginal ultrasound images of the pelvic organs were obtained and submitted for interpretation. FINDINGS: The uterus measures 8.7 x 4.4 x 5.2 cm in length. There are no focal lesions seen. The c ervix demonstrate the presence of cystic structure corresponding to most likely nabothian cysts. The endometrium measures 0.8 mm. The right ovary was not visualized. The left ovary measures 3.2 x 2.3 x 2.3 cm in length. There are no focal lesions seen. Normal color a nd doppler flow is visualized. There is no free fluid in the cul-de-sac. IMPRESSION: Right ovary not visualized. Otherwise unremarkable ultrasound of the pelvis. Electronically signed by: Darryn Montemayor MD 09/30/2023 01:10 AM [facility] Due to temporary technical issues with the PACS/Fluency reporting system, reports are being signed by the in house radiologists without review as a courtesy to insure prompt reporting. The interpreting radiologist is fully responsible for the content of the report.
== END ==
LOC: ER 20:10
DX: N93.9 Abnormal uterine and vaginal bleeding, unspecified (principal)
CPT/HCPCS: 36415; 76830; 80048; 81001; 81025; 84702; 85025; 86900; 86901

== ENCOUNTER 2024-12-12 09:01 | Emergency (ER) | payer SELFPAY ==
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
--- NOTE | 2024-12-12 09:32 | ER ---
Nurse's Notes [facility] Name: Aracelis Pike Age: 34 yrs Sex: Female : 1990 Arrival Date: 12/12/2024 Time: 09:01 Bed 6 Private MD: Diagnosis: Dermatitis, unspecified Presentation: 12/12 09:14 Chief complaint: Patient states: rash to right shoulder that began yesterday and worse aa5 today. Pt reports rash it's "itchy and it welsh". Coronavirus screen: At this time, the client does not indicate any symptoms associated with coronavirus-19. Ebola Screen: Patient denies travel to an Ebola-affected area in the 21 days before illness onset. Initial Sepsis Screen: Does the patient meet any 2 criteria? No. Patient's initial sepsis screen is negative. Does the patient have a suspected source of infection? No. Patient's initial sepsis screen is negative. Risk Assessment: Do you want to hurt yourself or someone else? Patient reports no desire to harm self or others. Onset of symptoms was November 2024. 09:14 Acuity: VIDAL 5 aa5 09:14 Method Of Arrival: Ambulatory aa5 Triage Assessment: 09:15 General: Appears in no apparent distress. uncomfortable, Behavior is calm, cooperative, bp appropriate for age. Pain: Complains of pain in posterior aspect of right shoulder. EENT: No deficits noted. Neuro: No deficits noted. Cardiovascular: No deficits noted. Respiratory: No deficits noted. GI: No signs and/or symptoms were reported involving the gastrointestinal system. : No signs and/or symptoms were reported regarding the genitourinary system. Derm: Rash noted that is vesicular. Musculoskeletal: No deficits noted. Historical: - Allergies: 09:13 Adhesives; aa5 09:13 Phenergan; aa5 - PMHx: 09:13 depressive disorder; Migraines; aa5 - PSHx: 09:13 section; aa5 - Immunization history:: Adult Immunizations unknown. - Infectious Disease History:: Denies. - Social history:: Smoking status: Patient denies any tobacco usage or history of. Screenin: [facility] ED Fall Risk Assessment (Adult) History of falling in the last 3 months, bp including since admission No falls in past 3 months (0 pts) Confusion or Disorientation No (0 pts) Intoxicated or Sedated No (0 pts) Impaired Gait No (0 pts) Mobility Assist Device Used No (0 pt) Altered Elimination No (0 pt) Score/Fall Risk Level 0 - 2 = Low Risk Oriented to surroundings. Abuse screen: Denies threats or abuse. Denies injuries from another. Nutritional screening: No deficits noted. Tuberculosis screening: No symptoms or risk factors identified. Assessment: 09:15 General: Appears in no apparent distress. uncomfortable, Behavior is cooperative, bp appropriate for age, anxious. 09:22 Reassessment: Patient appears in no apparent distress at this time. Patient is alert, bp oriented x 3, equal unlabored respirations, skin warm/dry/pink. Vital Signs: 09:14 BP 135 / 79; Pulse 72; Resp 16 S; Temp 97.9(O); Pulse Ox 100% on R/A; Weight 88 kg (R); aa5 Height 5 ft. 5 in. (R); 09:14 Body Mass Index 32.28 (88.00 kg, 165.1 cm) aa5 ED Course: 09:05 Patient arrived in ED. cj3 09:08 Attila Arguelles RN is Primary Nurse. bp 09:10 Sixto Ramírez PA is PHCP. cp 09:10 Ryan Shipman MD is Attending Physician. cp 09:13 Arm band placed on Patient placed in an exam room, on a stretcher. aa5 09:15 Triage completed. aa5 09:22 Patient has correct armband on for positive identification. bp 09:22 No provider procedures requiring assistance completed. Patient did not have IV access bp during this emergency room visit. Administered Medications: 09:35 Drug: MethylPREDNISolone Sodium Succinate IM 125 mg IM once Route: IM; Site: left bp gluteus; 09:35 Follow up: Response: No adverse reaction bp Medication: 09:22 VIS not applicable for this client. bp Outcome: 09:32 Discharge ordered by . cp 09:36 Discharged to home ambulatory, bp 09:36 Condition: stable 09:36 Discharge instructions given to patient, Instructed on discharge instructions, follow up and referral plans. medication usage, Demonstrated understanding of instructions, follow-up care, medications, Prescriptions given X 3, 09:43 Patient left the ED. bp Signatures: Annita Holland RN RN aa5 PageSixto PA PA cp Peltier, Brian, RN RN bp Christina Hunter cj3
[2024-12-12] MEDS ORDERED: METHYLPREDNISOLONE 125 MG INJ ONE (09:33)
--- NOTE | 2024-12-12 09:33 | EDPHYS ---
Physician Documentation [facility] Name: Aracelis Pike Age: 34 yrs Sex: Female : 1990 Arrival Date: 12/12/2024 Time: 09:01 Bed 6 Private MD: ED Physician Ryan Shipman HPI: 12/12 09:18 This 34 yrs old Female presents to ER via Ambulatory with complaints of Rash. cp 09:18 The patient's rash thought to be caused by an unknown cause. The rash is located on the cp superior aspect of right shoulder and right lower jaw. 09:18 Onset: The symptoms/episode began/occurred yesterday, and became worse today. cp Associated signs and symptoms: Pertinent positives: burning sensation, itching. 09:18 Treatment given at home: none. cp Historical: - Allergies: 09:13 Adhesives; aa5 09:13 Phenergan; aa5 - PMHx: 09:13 depressive disorder; Migraines; aa5 - PSHx: 09:13 section; aa5 - Immunization history:: Adult Immunizations unknown. - Infectious Disease History:: Denies. - Social history:: Smoking status: Patient denies any tobacco usage or history of. ROS: 09:20 Skin: Positive for rash, of the right shoulder and right lower jaw, cp 09:20 Constitutional: Negative for body aches, chills, fever, poor PO intake, cp 09:20 Respiratory: Negative for cough, shortness of breath, wheezing, Exam: 09:20 Constitutional: The patient appears in no acute distress, alert, awake, non-toxic, well cp developed, well nourished, 09:20 Head/Face: Normocephalic, atraumatic. cp 09:20 Cardiovascular: Rate: normal, 09:20 Respiratory: the patient does not display signs of respiratory distress, Respirations: normal, no use of accessory muscles, no retractions, labored breathing, is not present, Breath sounds: are clear throughout, no decreased breath sounds, no stridor, no wheezing, 09:20 Abdomen/GI: Inspection: abdomen appears normal, 09:20 Musculoskeletal/extremity: Extremities: noted in the superior aspect of right shoulder: rash, appears erythematous, small and vesicular, no drainage, 09:20 Skin: smaller areas of rash noted to right lower jaw. Vital Signs: 09:14 BP 135 / 79; Pulse 72; Resp 16 S; Temp 97.9(O); Pulse Ox 100% on R/A; Weight 88 kg (R); aa5 Height 5 ft. 5 in. (R); 09:14 Body Mass Index 32.28 (88.00 kg, 165.1 cm) aa5 MDM: 09:10 Medical Screening Exam initiated cp 09:25 Differential diagnosis: shingles, cellulitis, dermatitis. cp 09:32 Data reviewed: vital signs, nurses notes, and as a result, I will discharge patient. cp Administered Medications: 09:35 Drug: MethylPREDNISolone Sodium Succinate IM 125 mg IM once Route: IM; Site: left bp gluteus; :35 Follow up: Response: No adverse reaction bp Disposition: :45 Co-signature as Attending Physician, Ryan Shipman MD I agree with the assessment and rn plan of care. I reviewed the patient's care provided by Advanced Practice Provider \T\ agree w/ the diagnosis \T\ care plan. I personally saw the pt \T\ performed a substantive portion of the visit, incldng all aspects of the (History/Exam/Medical Decision Making). 12/13 09:09 Chart complete. cp Disposition Summary: 12/12/24 09:32 Discharge Ordered Notes: Location: Home cp Problem: new cp Symptoms: have improved cp Condition: Stable cp Diagnosis - Dermatitis, unspecified cp Followup: cp - With: Private Physician - When: 2 - 3 days - Reason: Worsening of condition Discharge Instructions: - Discharge Summary Sheet cp - Contact Dermatitis cp - Eczema cp - Atopic Dermatitis cp Forms: - Medication Reconciliation Form cp - Antibiotic Education cp - Prescription Opioid Use cp - Patient Portal Instructions cp - Leadership Thank You Letter cp Prescriptions: - Hydroxyzine HCl 25 mg Oral Tablet - take 1 tablet ORAL route every 6 hours As needed; 30 tablet; Refills: 0, cp Product Selection Permitted - Triamcinolone Acetonide 0.5 % Topical cream - apply 1 application TOPICAL route 2 times per day As needed; 45 gram tube; cp Refills: 0, Product Selection Permitted - Prednisone 20 mg Oral Tablet - take 2 tablets ORAL route once daily for 5 days; 10 tablet; Refills: 0, Product cp Selection Permitted Signatures: Ryan Shipman MD MD rn Calderon, Audri, RN RN aa5 Sixto Ramírez RERE PA cp Attila Arguelles, RN RN bp
[2024-12-12 10:07] VITALS: BP 135/79; TEMP 97.9; O2SAT 100
== END 2024-12-12 09:43 | disposition home or self-care (01) ==
LOC: ER 09:01
DX: L30.9 Dermatitis, unspecified (principal)
CPT/HCPCS: 96372; 99284; J2919

== ENCOUNTER 2024-12-14 17:30 | Emergency (ER) | payer SELFPAY ==
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
--- NOTE | 2024-12-14 17:56 | EDPHYS ---
Physician Documentation [facility] Name: Aracelis Pike Age: 34 yrs Sex: Female : 1990 Arrival Date: 12/14/2024 Time: 17:30 Bed IW3 Private MD: ED Physician Tryo Pineda HPI: 12/14 18:22 This 34 yrs old Female presents to ER via Ambulatory with complaints of Rash. kb 18:22 Pt is a 34 year old female who presents for rash to right shoulder that has spread to kb back and chest. States it is burning and has started to blister. . Historical: - Allergies: 17:51 Adhesives; iw 17:51 Phenergan; iw - Home Meds: 17:51 Lexapro 10 mg Oral tablet 1 tab daily [Active]; Wellbutrin XL 350 mg Oral 1 tab daily iw for Major Depressive Disorder [Active]; - PMHx: 17:51 depressive disorder; Migraines; iw - PSHx: 17:51 section; iw ROS: 18:21 Constitutional: As per HPI kb Exam: 18:21 Constitutional: This is a well developed, well nourished patient who is awake, alert, kb and in no acute distress. Head/Face: Normocephalic, atraumatic. ENT: Moist Mucous membranes Cardiovascular: Regular rate Respiratory: Respirations even and unlabored. No increased work of breathing. Talking in full sentences MS/ Extremity: Pulses equal, no cyanosis. Neurovascular intact. Full, normal range of motion. Neuro: Awake and alert, GCS 15, oriented to person, place, time, and situation. 18:21 Skin: consistent with zoster, on the right clavicle, anterior aspect of right shoulder and posterior aspect of right shoulder, Vital Signs: 17:51 BP 138 / 90; Pulse 63; Resp 19; Temp 98; Pulse Ox 100% on R/A; iw MDM: 17:42 Medical Screening Exam initiated kb 18:22 Differential diagnosis: impetigo, allergic reaction, parasite infection, zoster. Data kb reviewed: vital signs, nurses notes. Counseling: I had a detailed discussion with the patient and/or guardian regarding the historical points, exam findings, and any diagnostic results supporting the discharge/admit diagnosis, the need for outpatient follow up, a family practitioner, to return to the emergency department if symptoms worsen or persist or if there are any questions or concerns that arise at home. Administered Medications: No medications were administered Disposition: 18:28 Co-signature as Attending Physician, Troy Pineda MD I reviewed the patient's care rt provided by the Advanced Practice Provider and agree with the diagnosis and treatment plan. Disposition Summary: 12/14/24 17:55 Discharge Ordered Notes: Location: Home kb Condition: Stable kb Diagnosis - Zoster without complications kb Followup: kb - With: Emergency Department - When: As needed - Reason: Worsening of condition Followup: kb - With: Private Physician - When: 2 - 3 days - Reason: Recheck today's complaints, Continuance of care, Re-evaluation by your physician Discharge Instructions: - Discharge Summary Sheet kb - Shingles, [id number] kb Forms: - Medication Reconciliation Form kb - Antibiotic Education kb - Prescription Opioid Use kb - Patient Portal Instructions kb - Leadership Thank You Letter kb - Work release form ss Prescriptions: - Valtrex 1 gram Oral tablet - take 1 tablet ORAL route every 8 hours for 7 days; 21 tablet; Refills: 0, kb Product Selection Permitted Signatures: Quin Rios, WILFREDO-C WILFREDO-Blanca Allen, RN RN Troy Bianchi MD MD rt
--- NOTE | 2024-12-14 17:56 | ER ---
Nurse's Notes [facility] Name: Aracelis Pike Age: 34 yrs Sex: Female : 1990 Arrival Date: 12/14/2024 Time: 17:30 Bed IW3 Private MD: Diagnosis: Zoster without complications Presentation: 12/14 17:49 Chief complaint: Patient states: rash on right shoulder started Friday, was seen here iw and treated for allergic reaction , rash is moving up her neck and down her back ,it is itchy and blistering. Coronavirus screen: At this time, the client does not indicate any symptoms associated with coronavirus-19. Ebola Screen: No symptoms or risks identified at this time. Initial Sepsis Screen: Does the patient meet any 2 criteria? No. Patient's initial sepsis screen is negative. Does the patient have a suspected source of infection? No. Patient's initial sepsis screen is negative. Risk Assessment: Do you want to hurt yourself or someone else? Patient reports no desire to harm self or others. Onset of symptoms was November 2024. 17:49 Method Of Arrival: Ambulatory iw 17:49 Acuity: VIDAL 4 iw Historical: - Allergies: 17:51 Adhesives; iw 17:51 Phenergan; iw - Home Meds: 17:51 Lexapro 10 mg Oral tablet 1 tab daily [Active]; Wellbutrin XL 350 mg Oral 1 tab daily iw for Major Depressive Disorder [Active]; - PMHx: 17:51 depressive disorder; Migraines; iw - PSHx: 17:51 section; iw Screenin:53 [facility] ED Fall Risk Assessment (Adult) History of falling in the last 3 months, iw including since admission No falls in past 3 months (0 pts) Confusion or Disorientation No (0 pts) Intoxicated or Sedated No (0 pts) Impaired Gait No (0 pts) Mobility Assist Device Used No (0 pt) Altered Elimination No (0 pt) Score/Fall Risk Level 0 - 2 = Low Risk Oriented to surroundings, Maintained a safe environment. Abuse screen: Denies threats or abuse. Denies injuries from another. Nutritional screening: No deficits noted. Tuberculosis screening: No symptoms or risk factors identified. Assessment: 17:53 General: Appears in no apparent distress. Behavior is calm, cooperative. Pain: iw Complains of pain in right clavicle and right lateral posterior chest. Neuro: Level of Consciousness is awake, alert, obeys commands. Cardiovascular: Patient's skin is warm and dry. Derm: Rash noted that is itchy, red, on right sternocleidomastoid. Derm: Rash noted that is red, on right trapezius and right scapular area. Musculoskeletal: Range of motion: intact in all extremities. Vital Signs: 17:51 BP 138 / 90; Pulse 63; Resp 19; Temp 98; Pulse Ox 100% on R/A; iw ED Course: 17:34 Patient arrived in ED. im 17:35 [facility]-C [facility]. kb 17:35 Troy Pineda MD is Attending Physician. kb 17:51 Triage completed. iw 17:51 Arm band placed on. iw 17:53 Blanca Hamm, RN is Primary Nurse. iw 18:25 No provider procedures requiring assistance completed. Patient did not have IV access iw during this emergency room visit. Administered Medications: No medications were administered Medication: 17:55 VIS not applicable for this client. iw Outcome: 17:55 Discharge ordered by MD. kb 18:26 Discharged to home ambulatory, iw 18:26 Condition: good 18:26 Discharge instructions given to patient, Instructed on discharge instructions, follow up and referral plans. medication usage, Demonstrated understanding of instructions, follow-up care, medications, Prescriptions given X 1, 18:27 Patient left the ED. iw Signatures: Quin Rios FNP-C FNP-Ckb Williams, Irene RN RN iw Madeleine Beltran im
[2024-12-14 18:51] VITALS: BP 138/90; TEMP 98; O2SAT 100
== END 2024-12-14 18:27 | disposition home or self-care (01) ==
LOC: ER 17:30
DX: B02.9 Zoster without complications (principal)

== ENCOUNTER 2024-12-16 21:55 | Emergency (ER) | payer SELFPAY ==
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
--- NOTE | 2024-12-17 03:40 | ER ---
Nurse's Notes [facility] Name: Aracelis Pike Age: 34 yrs Sex: Female : 1990 Arrival Date: 12/16/2024 Time: 21:55 Bed 10 Private MD: Diagnosis: Dermatitis, unspecified Presentation: 12/16 23:12 Chief complaint: Patient states: rash since Friday , has been here a couple times, iw given steroids, antivirals, the rash is spreading to left side now. Coronavirus screen: At this time, the client does not indicate any symptoms associated with coronavirus-19. Ebola Screen: No symptoms or risks identified at this time. Initial Sepsis Screen: Does the patient meet any 2 criteria? No. Patient's initial sepsis screen is negative. Does the patient have a suspected source of infection? No. Patient's initial sepsis screen is negative. Risk Assessment: Do you want to hurt yourself or someone else? Patient reports no desire to harm self or others. Onset of symptoms was December 11, 2024. 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 - Infectious Disease History:: Denies. - Social history:: Smoking status: Patient denies any tobacco usage or history of. Screenin/18 03:15 [facility] ED Fall Risk Assessment (Adult) History of falling in the last 3 months, jj7 including since admission No falls in past 3 months (0 pts) Confusion or Disorientation No (0 pts) Intoxicated or Sedated No (0 pts) Impaired Gait No (0 pts) Mobility Assist Device Used No (0 pt) Altered Elimination No (0 pt) Score/Fall Risk Level 0 - 2 = Low Risk Oriented to surroundings, Maintained a safe environment, Educated pt \T\ family on fall prevention, incl call for assistance when getting out of bed, Assessed \T\ reinforced patient's understanding of fall precautions. Abuse screen: Denies threats or abuse. Nutritional screening: No deficits noted. Tuberculosis screening: No symptoms or risk factors identified. Assessment: 03:15 Reassessment: ASSUMED CARE OF PT. PT SITTING IN BED. VS STABLE. NO DISTRESS NOTED. CALL jj7 SALAZAR IN REACH. General: Appears in no apparent distress. comfortable, Behavior is calm, cooperative, appropriate for age. Pain: Denies pain. Derm: Rash noted that is macular, itchy, papular, red, raised, on RIGHT SHOULDER,LEFT CHEST, ABD, ARMS AND BACK. Vital Signs: 12/16 23:12 BP 122 / 72; Resp 18; Temp 98.4; Pulse Ox 100% on R/A; Weight 88.9 kg; Height 5 ft. 5 iw in. ; 12/17 03:15 BP 128 / 81; Pulse 76; Resp 19; Pulse Ox 99% ; jj7 04:05 BP 109 / 49; Pulse 74; Resp 17; Temp 98.1; Pulse Ox 100% ; jj7 12/16 23:12 Body Mass Index 32.62 (88.90 kg, 165.1 cm) ED Course: 12/16 22:00 Patient arrived in ED. gm2 22:19 Sixto Ramírez PA is PHCP. cp 22:19 Sixto Carroll MD is Attending Physician. cp 23:13 Triage completed. iw 23:14 Arm band placed on. iw 12/17 03:15 Patient has correct armband on for positive identification. Bed in low position. Call jj7 light in reach. Provided Education on: USE OF CALL SALAZAR. Warm blanket given. 03:38 Antolin Pacheco MD is Referral Physician. cp 04:05 Bryant Hunter RN is Primary Nurse. jj7 04:05 No provider procedures requiring assistance completed. Patient did not have IV access jj7 during this emergency room visit. Administered Medications: No medications were administered Medication: 03:15 VIS not applicable for this client. jj7 Outcome: 03:39 Discharge ordered by . cp 04:05 Discharged to home ambulatory, jj7 04:05 Condition: good 04:05 Discharge instructions given to patient, Instructed on discharge instructions, follow up and referral plans. medication usage, Demonstrated understanding of instructions, follow-up care, medications, Prescriptions given X 2, 04:05 Patient left the ED. jj7 Signatures: Blanca Hamm, RN Sixto Hogue PA PA cp Johnson, Juwairiyah, RN RN jj7 Carolina Oreilly 2 Corrections: (The following items were deleted from the chart) 04:14 04:12 Patient left the ED. jj7 jj7
--- NOTE | 2024-12-17 03:40 | EDPHYS ---
Physician Documentation [facility] Name: Aracelis Pike Age: 34 yrs Sex: Female : 1990 Arrival Date: 12/16/2024 Time: 21:55 Bed 10 Private MD: ED Physician Sixto Carroll HPI: 12/17 03:30 This 34 yrs old Female presents to ER via Ambulatory with complaints of Rash. cp 03:30 The patient's rash thought to be caused by an unknown cause. cp 03:30 The rash is located on the right shoulder worse and arms and lower abdomen and face. cp The rash can be described as raised, vesicular, itchy. 03:30 Onset: The symptoms/episode began/occurred last week. Associated signs and symptoms: cp Pertinent positives: burning sensation, itching, Pertinent negatives: fever. Severity of symptoms: in the emergency department the symptoms are worse. 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 - Infectious Disease History:: Denies. - Social history:: Smoking status: Patient denies any tobacco usage or history of. ROS: 12/17 03:33 Constitutional: Negative for body aches, chills, fever, poor PO intake, cp 03:33 Eyes: Negative for injury, pain, redness, and discharge, cp 03:33 Respiratory: Negative for cough, shortness of breath, wheezing, 03:33 Abdomen/GI: Negative for abdominal pain, vomiting, diarrhea, constipation, 03:33 Skin: Positive for rash, 03:33 All other systems are negative, Exam: 03:35 Constitutional: The patient appears in no acute distress, alert, awake, non-toxic, well cp developed, well nourished, overweight 03:35 Head/Face: Normocephalic, atraumatic. cp 03:35 ENT: Posterior pharynx: Airway: no evidence of obstruction, patent, 03:35 Cardiovascular: Rate: normal, 03:35 Respiratory: the patient does not display signs of respiratory distress, Respirations: normal, no use of accessory muscles, no retractions, labored breathing, is not present, Breath sounds: are clear throughout, no decreased breath sounds, 03:35 Skin: rash can be described as vesicular, mild erythema, no drainage, and is diffusely located, Vital Signs: 12/16 23:12 BP 122 / 72; Resp 18; Temp 98.4; Pulse Ox 100% on R/A; Weight 88.9 kg; Height 5 ft. 5 iw in. ; 12/17 03:15 BP 128 / 81; Pulse 76; Resp 19; Pulse Ox 99% ; jj7 04:05 BP 109 / 49; Pulse 74; Resp 17; Temp 98.1; Pulse Ox 100% ; jj7 12/16 23:12 Body Mass Index 32.62 (88.90 kg, 165.1 cm) iw MDM: 12/16 23:11 Medical Screening Exam initiated cp 12/17 03:39 Data reviewed: vital signs, nurses notes, I have discussed the patient's cp presentation/case with the attending Emergency Department Physician; and as a result, I will discharge patient. 03:39 Differential diagnosis: impetigo, varicella, allergic reaction. 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 Administered Medications: No medications were administered Disposition Summary: 12/17/24 03:39 Discharge Ordered Notes: Location: Home cp Problem: an ongoing problem cp Symptoms: are unchanged cp Condition: Stable cp Diagnosis - Dermatitis, unspecified cp Followup: cp - With: Antolin Pacheco MD - When: 5 - 6 days - Reason: Worsening of condition Discharge Instructions: - Discharge Summary Sheet cp - Contact Dermatitis cp - Atopic Dermatitis cp Forms: - Medication Reconciliation Form cp - Antibiotic Education cp - Prescription Opioid Use cp - Patient Portal Instructions cp - Leadership Thank You Letter cp Prescriptions: - Pepcid 20 mg Oral Tablet - take 1 tablet ORAL route every 12 hours for 10 days; 20 tablet; Refills: 0, cp Product Selection Permitted - Zyrtec 10 mg Oral Tablet - take 1 tablet ORAL route once daily As needed; 20 tablet; Refills: 0, Product cp Selection Permitted - Triamcinolone Acetonide 0.5 % Topical cream - apply 1 application TOPICAL route 2 times per day As needed may use on areas of cp rash except face; 45 gram tube; Refills: 0, Product Selection Permitted Addendum: 12/18/2024 08:11 Co-signature as Attending Physician, Sixto Carroll MD I agree with the assessment and c corey plan of care. Signatures: Sixto Carroll MD MD cha Williams, Irene, RN RN iw Sixto Ramírez PA PA cp Corrections: (The following items were deleted from the chart) 01:15 01:12 This 34 yrs old Female presents to ER via Ambulatory with complaints of Rash, cp Fever. cp 01:17 04 03:30 This 34 yrs old Female presents to ER via Ambulatory with complaints of cp Rash, Fever. cp
[2024-12-17 04:20] VITALS: BP 109/49; TEMP 98.1; O2SAT 100
== END 2024-12-17 04:12 | disposition home or self-care (01) ==
LOC: ER 21:55
DX: L30.9 Dermatitis, unspecified (principal)
CPT/HCPCS: 99283